=== PATIENT | female | born 2005 | race Hispanic/Latino ===

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

== ENCOUNTER → 2023-05-14 | Emergency (ER) | payer SELFPAY ==
[~2023-05-14] MED LIST: ACETAMINOPHEN 500 MG TAB ONE; DICYCLOMINE HCL 20 MG/2 ML AMP IM ONE; FENTANYL CITR 100 MCG/2 ML ONE; NA CHLORIDE 0.9% 1,000 ML ONE
--- OUTSIDE RECORDS SUMMARY | 2023-05-14 22:42 | XMS REPORT | Continuity of Care Document ---
Author Name Unknown Address [address] [place] [address] [facility] Address 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 Role Phone PCP, PATIENT DOES NOT HAVE A Primary Care Physic ce Unavailable MINOR VELASCO Attending Clinician Unavailable Minor Velasco MD Attending Clinician [phone] Rosalba Ochoa DO Attending Clinician [phone] ROSALBA OCHOA Attending Clinician Unavailable Racqule Bowman Attending Clinician [phone] KAILEE Attending Clinician Unavailable ROSALBA OCHOA Admitting Clinician Unavailable KAILEE Admitting Clinician Unavailable Payers Payer Name Policy Type Policy Number Effective Date Expirati on Date Source MEDICAID PENDING PENDING 2023 00:00:00 Problems Condition Name Condition Details Condition Category Status Onset Date Resolution Date Last Treatment Date Treating Clinician Comments Source Nabothian cyst Nabothian cyst Disease Active 2022-03 00:00: 00 [facility] Abdominal pain, unspecifie d abdominal location Abdominal pain, unspecifie d abdominal location Disease Active 2022-03 00:00: 00 [facility] Allergies, Adverse Reactions, Alerts Allergy Name Allergy Type Status Severity Reaction(s) Onset Date Inactive Date Treating Clinician Comments Source NO KNOWN ALLERGIE S Drug Class Active [facility] Social History Social Habit Start Date Stop Date Quantity Comments Source Sexual orientation U [facility] Sex Assigned At 2005 00:00:00 2005 00:00:00 [facility] Smoking Status Start Date Stop Date Source Tobacco smoking consumption unknown [facility] Medications Ordered Medication Name Filled Medication Name Start Date Stop Date Current Medication? Ordering Clinician Indication Dosage Frequency Signature (SIG) Comments Components Source Nitrofurant oin&Nit. Macrocryst (MACROBID) 100 mg capsule 04-26 00:00: 00 05-04 05:59 :00 Yes [id number] 100mg Take 1 capsule by mouth in the morning and 1 capsule in the evening. Do all this for 7 days. [facility] Vital Signs Vital Name Observation Time Observation Value Comments S ource Systolic blood pressure 2023-04-26 20:30:00 109 mm[Hg] [facility] Diastolic blood pressure 2023-04-26 20:30:00 75 mm[Hg] [facility] Heart rate 2023-04-26 20:30:00 70 /min [facility] Body temperature 2023-04-26 20:30:00 37 Miriam [facility] Respiratory rate 2023-04-26 20:30:00 15 /min [facility] Oxygen saturation in Arterial blood by Pulse oximetry 2023-04-26 20:30:00 99 /min [facility] Body height 2023-04-26 17:11:00 162.6 cm [facility] Body weight 2023-04-26 17:11:00 61.236 kg [facility] BMI 2023-04-26 17:11:00 23.17 kg/m2 [facility] Systolic blood pressure 2023-01-22 03:50:00 108 mm[Hg] [facility] Diastolic blood pressure 2023-01-22 03:50:00 78 mm[Hg] [facility] Heart rate 2023-01-22 03:50:00 59 /min [facility] Respiratory rate 2023-01-22 03:50:00 18 /min [facility] Oxygen saturation in Arterial blood by Pulse oximetry 2023-01-22 03:50:00 100 /min [facility] Body temperature 2023-01-22 01:36:00 36.78 Miriam [facility] Body weight 2023-01-22 01:36:00 56.7 kg [facility] Procedures Procedure Date / Time Performed Performing Clinicia n Source ASSIGNMENT OF BENEFITS 2023-04-26 18:34:15 Docto r Unassigned, [place] [facility] BASIC METABOLIC PANEL (NA, K, CL, CO2, GLUCOSE, BUN, CREATININE, CA) 2023-04-26 18:29:00 Minor Velasco [facility] TOTAL BETA HCG ASSAY 2023-04-26 18:29:00 Minor Velasco [facility] CBC WITH DIFF 2023-04-26 18:29:00 Minor Velasco [facility] URINALYSIS 2023-04-26 18:29:00 [facility] 2023-04-26 18:29:00 Minor Velasco [facility] NOTICE OF PRIVACY PRACTICES 2023-04-26 17:04:19 Doctor Unassigned, [place] [facility] CONSENT/REFUSAL FOR DIAGNOSIS AND TREATMENT 2023-04-26 17:03:50 Doctor Unassigned, [place] [facility] US OVARY TORSION 2023-01-22 04:45:00 Rosalba Ochoa [facility] POCT TEST 2023-01-22 03:44:00 Joan Ochoa [facility] URINALYSIS 2023-01-22 03:41:00 Rosalba Ochoa [facility] LIPASE 2023-01-22 03:22:00 Rosalba Ochoa [facility] COMP. METABOLIC PANEL (00409) 2023-01-22 03:22:00 Rosalba Ochoa [facility] CBC WITH DIFF 2023-01-22 03:22:00 Rosalba Ochoa [facility] CONSENT/REFUSAL FOR DIAGNOSIS AND TREATMENT 2023-01-22 01:09:11 Doctor Unassigned, [place] [facility] Encounters Start Date/Time End Date/Time Encounter Type Admission Type Attending Clinicians Care Facility Care Department Encounter ID Source 2023-04-26 11:15:00 2023-04-26 14:40:00 Emergency MINOR ARIAS [facility] ERT [id number] [facility] 2023-04-26 11:15:00 2023-04-26 14:40:00 Emergency Minor Velasco [facility] [id number] 4.2.7.2.686 [id number] [facility] 2023-01-21 19:37:00 2023-01-21 23:59:00 Emergency Rosalba Ochoa [facility] [id number] 4.2.7.2.686 [id number] [facility] 2023-01-21 19:37:00 2023-01-21 23:59:00 Emergency ROSALBA TANNER MATTHEW [facility] ERT [id number] [facility] 2022-12-09 00:00:00 2022-12-09 00:00:00 Telephone [facility] [id number] 4.2.7.2.686 [id number] [facility] 2021-09-19 03:33:00 2021-09-19 03:33:00 Outpatient KERMIT COATS KYBIANCA [facility] [id number] Oskar naidu [facility] Program Results Test Description Test Time Test Comments Results Result Co mments Source [facility] (NA, K, CL, CO2, GLUCOSE, BUN, CREATININE, CA)2023-04-26 19:09:51* Test Item Value Reference Range Interpretation Comme nts NA (test code = 0905643553) 135 mmol/L 135-145 K (test code = 7197630963) 3.9 mmol/L 3.5-5.0 CL (test code = 3814917622) 104 mmol/L 98-108 CO2 TOTAL (test code = 4280545930) 24 mmol/L 23-31 AGAP (test code = 3699711101) 7 2-16 BUN (test code = 8606846169) 6 mg/dL 7-23 L GLUCOSE (test code = 6671705516) 74 mg/dL 70-110 CREATININE (test code = 2160-0) 0.52 mg/dL 0.50-1.04 CALCIUM (test code = 5167220584) 9.3 mg/dL 8.6-10.6 eGFR (test code = 25190-8) 137.5 mL/min/1.73m2 CKD-EPI eGFR (2020). Assuming creatinine has been stable day-to-day for at least three months, the eGFR indicates Category G1 (>= 90 mL/min/1.73 m2) Lab Interpretation (test code = 00788-9) Abnormal [facility] WITH [id number] 18:59:50* Test Item Value Reference Range Interpretation Comme nts WBC (test code = 6690-2) 9.78 4.30-11.10 RBC (test code = 789-8) 4.62 3.93-5.25 HGB (test code = 718-7) 13.1 g/dL 11.6-15.0 HCT (test code = 4544-3) 39.4 % 35.7-45.2 MCV (test code = 787-2) 85.3 fL 80.6-95.5 MCH (test code = 785-6) 28.4 pg 25.9-32.8 MCHC (test code = 786-4) 33.2 g/dL 31.6-35.1 RDW-SD (test code = 15440-9) 43.5 fL 39.0-49.9 RDW-CV (test code = 788-0) 14.0 % 12.0-15.5 PLT (test code = 777-3) 322 166-358 MPV (test code = 03091-2) 9.3 fL 9.5-12.9 L NRBC/100 WBC (test code = 0664915653) 0.0 0.0-10.0 NRBC x10^3 (test code = 5885210955) See_Comment [Automated messa ge] The system which generated this result transmitted reference range: 10*3/?L. The reference range was not used to interpret this result as normal/abnormal. GRAN MAT (NEUT) % (test code = 770-8) 73.2 % IMM GRAN % (test code = 8222672271) 0.30 % LYMPH % (test code = 736-9) 21.2 % MONO % (test code = 5905-5) 4.4 % EOS % (test code = 713-8) 0.7 % BASO % (test code = 706-2) 0.2 % GRAN MAT x10^3(ANC) (test code = 0724540160) 7.16 10*3/uL 1.88-7.09 H IMM GRAN x10^3 (test code = 1574496216) 0.03 10*3/uL 0.00-0.06 LYMPH x10^3 (test code = 731-0) 2.07 10*3/uL 1.32-3.29 MONO x10^3 (test code = 742-7) 0.43 10*3/uL 0.33-0.92 EOS x10^3 (test code = 711-2) 0.07 10*3/uL 0.03-0.39 BASO x10^3 (test code = 704-7) 0.01-0.07 Lab Interpretation (test code = 42754-6) [facility]normal [facility] [id number] 18:29:00* Test Item Value Reference Range Interpretation Comme nts POCT PREG (test code = 1605) Positive On board controls acceptable with C Line (test code = 3574) Yes POCT PREG LOT # (test code = 3575) [id number] POCT PREG TEST DATE ( test code = 3576) 04-13-24 Lab Interpretation (test cod e = 83638-6) [facility] (39152)2023-01-22 03:49:36* Test Item Value Reference Range Interpretation Comme nts NA (test code = 4102973171) 136 mmol/L 135-145 K (test code = 7142715102) 3.9 mmol/L 3.5-5.0 CL (test code = 1893195575) 102 mmol/L 98-108 CO2 TOTAL (test code = 5706137816) 27 mmol/L 23-31 AGAP (test code = 8456964947) 7 2-16 BUN (test code = 5238202382) 13 mg/dL 7-23 GLUCOSE (test code = 3787179400) 79 mg/dL 70-110 CREATININE (test code = 6957848434) 0.64 mg/dL 0.50-1.04 TOTAL BILI (test code = 2006852902) 1.3 mg/dL 0.1-1.1 H CALCIUM (test code = 9379495279) 9.0 mg/dL 8.6-10.6 T PROTEIN (test code = 3188099541) 8.1 g/dL 6.3-8.2 ALBUMIN (test code = 1886705837) 4.4 g/dL 3.5-5.0 ALK PHOS (test code = 9532029683) 69 U/L 34-122 ALTv (test code = 1742-6) 18 U/L 5-35 AST(SGOT) (test code = 1562335310) 27 U/L 13-40 eGFR (test code = 18759-6) 130.7 mL/min/1.73m2 CKD-EPI eGFR (2020). Assuming creatinine has been stable day-to-day for at least three months, the eGFR indicates Category G1 (>= 90 mL/min/1.73 m2) Lab Interpretation (test code = 01419-0) [facility]normal [facility] 03:49:36* Test Item Value Reference Range Interpretation Comme nts LIPASE (test code = 0875364038) 72 U/L 0-220 Lab Interpretation (test cod e = 25854-1) Normal [facility] [id number] 03:44:00* Test Item Value Reference Range Interpretation Comme nts POCT PREG (test code = 1605) Negative On board controls acceptable with C Line (test code = 3574) Yes POCT PREG LOT # (test code = 3575) [id number] POCT PREG TEST DATE ( test code = 3576) 04 05 25 Lab Interpretation (test cod e = 19824-7) [facility] [id number] 03:40:14* Test Item Value Reference Range Interpretation Comme nts WBC (test code = 6690-2) 7.87 See_Comment [Automated messa ge] The system which generated this result transmitted reference range: 4.30 - 11.10 10*3/?L. The reference range was not used to interpret this result as normal/abnormal. RBC (test code = 789-8) 4.52 See_Comment [Automated messa ge] The system which generated this result transmitted reference range: 3.93 - 5.25 10*6/?L. The reference range was not used to interpret this result as normal/abnormal. HGB (test code = 718-7) 12.4 g/dL 11.6-15.0 HCT (test code = 4544-3) 38.2 % 35.7-45.2 MCV (test code = 787-2) 84.5 fL 80.6-95.5 MCH (test code = 785-6) 27.4 pg 25.9-32.8 MCHC (test code = 786-4) 32.5 g/dL 31.6-35.1 RDW-SD (test code = 14366-5) 40.6 fL 39.0-49.9 RDW-CV (test code = 788-0) 13.2 % 12.0-15.5 PLT (test code = 777-3) 368 See_Comment H [Automated messa ge] The system which generated this result transmitted reference range: 166 - 358 10*3/?L. The reference range was not used to interpret this result as normal/abnormal. MPV (test code = 33696-6) 8.8 fL 9.5-12.9 L NRBC/100 WBC (test code = 6795714238) 0.0 See_Comment [Automated [employer] ssage] The system which generated this result transmitted reference range: 0.0 - 10.0 /100 WBCs. The reference range was not used to interpret this result as normal/abnormal. NRBC x10^3 (test code = 6182393472) See_Comment [Automated messa ge] The system which generated this result transmitted reference range: 10*3/?L. The reference range was not used to interpret this result as normal/abnormal. GRAN MAT (NEUT) % (test code = 770-8) 51.4 % IMM GRAN % (test code = 6124883793) 0.30 % LYMPH % (test code = 736-9) 41.9 % MONO % (test code = 5905-5) 4.1 % EOS % (test code = 713-8) 1.8 % BASO % (test code = 706-2) 0.5 % GRAN MAT x10^3(ANC) (test code = 1642187466) 4.05 10*3/uL 1.88-7.09 IMM GRAN x10^3 (test code = 8959721867) 0.00-0.06 LYMPH x10^3 (test code = 731-0) 3.30 10*3/uL 1.32-3.29 H MONO x10^3 (test code = 742-7) 0.32 10*3/uL 0.33-0.92 L EOS x10^3 (test code = 711-2) 0.14 10*3/uL 0.03-0.39 BASO x10^3 (test code = 704-7) 0.04 10*3/uL 0.01-0.07 Lab Interpretation (test code = 72313-1) Abnormal [facility] Notes Date/Time Note Provider Source 2023-04-26 14:39:55 0ze8boo5yjjYuB5gtFaZ R0IMtixgOb0+Yl D/XBsAanVr+ra9bcR4dUguz/IH6lGK2072 -02-18T14:39:55 Written/verbal d/c instructions, out of er no distress 34167-5Swhuhuwab department PjqrGB1157-73-43U33:40:09Emergen department NoteTXT1.2.840.947605.1.13.104.2.7 .2.302186|[id number] for patient sfmr35973-8DzhyTDMIYOMHRWWPdlvvvoh d C-CDA narrative tumz950420884Weiyid M. Barton RNUT[id number] 18RWAWQGLGAEOHDGCGGBHMON0477-89-07 T14:40:091.2.840.049497.1.72.3.15| 1.2.840.635982.1.13.104.2.7.2.7278 [id number] Corinna Carroll RN [facility] 2023-04-26 11:10:10 An+Xdj8h88b9rDpU0ahW A0C5OvCw+rwZWy FeC5IUUZmwneZ59xAhN/FPDwE9up5j0822 -02-18T11:10:10 Patient states: "It was the stomach acid I usually throw up in the morning. There was some spirals of blood a bunch of them."Reports being 15 weeks . 86687-6Odsqetqwc department Triage ezysCH8992-53-93R31:10:53[facility] Triage noteTXT1.2.840.013271.1.13.104.2.7 .2.453026|[id number] for patient alhp94857-1Qethmnmhv department NoteLNNARRATIVEFormatted C-CDA narrative [id number] M Cruz RNUT[id number] 18CIIGQUHQOUNUPYXXJTCHUH7831-80-49 T11:10:531.2.840.345480.1.72.3.15| 1.2.840.943376.1.13.104.2.7.2.7278 [id number] Silvana Mcdonnell RN [facility]
[2023-05-14 23:23] LABS: Absolute Basophils 0.1 K/uL (0-0.5); Basophils % 0.5 % (0-1.3); Hematocrit 34.5 % (36.0-45.0); Lymphocytes % 21.1 % (15.3-44.8); MCV 83.2 fL (80-100); MPV 7.1 fL (7.6-11.3); Platelets 321 thou/uL (152-406); RBC Red Blood Cell Count 4.14 M/uL (3.86-4.86)
[2023-05-14 23:32] LABS: Specific Gravity 1.008 (1.005-1.030); Urine Bacteria <20 /HPF (<20); Urine Bilirubin NEGATIVE (Negative); Urine Blood 3+ (OVER) (Negative); Urine Clarity Extremely Turbid (Clear); Urine Color Light-Brown (Yellow); Urine Crystals Unidentified Few /HPF (None Seen); Urine Glucose NEGATIVE (Negative); Urine Protein TRACE (Negative); Urine RBC >50 /HPF (None Seen); Urine Urobilinogen Normal (Normal); Urine WBC Clump Rare /HPF (None Seen); Urine Yeast (Budding) Trace /HPF (None Seen)
[2023-05-15 00:06] LABS: Anion Gap 10.5 mEq/L (5.0-15.0); Potassium 3.5 mEq/L (3.5-5.1)
--- NOTE | 2023-05-15 00:11 | ER ---
Nurse's Notes [facility] Name: Paz Castrejon Age: 17 yrs Sex: Female : 2005 Arrival Date: 05/14/2023 Time: 22:38 Bed 3 Private MD: Diagnosis: Threatened Presentation: 05/13 22:47 Chief complaint: Patient states: 5 MONTHS VAGINAL BLEEDING STARTED 30 MINUTES jj7 AGO. NO CARE. Coronavirus screen: At this time, the client does not indicate any symptoms associated with coronavirus-19. Ebola Screen: No symptoms or risks identified at this time. Initial Sepsis Screen: Does the patient meet any 2 criteria? No. Patient's initial sepsis screen is negative. Does the patient have a suspected source of infection? No. Patient's initial sepsis screen is negative. Risk Assessment: Do you want to hurt yourself or someone else? Patient reports no desire to harm self or others. Onset of symptoms. Onset of symptoms. 22:47 Method Of Arrival: Ambulatory [facility] 22:47 Acuity: JOSR 3 jj7 Triage Assessment: 22:47 General: Appears in no apparent distress. uncomfortable, Behavior is cooperative, jj7 appropriate for age, anxious, crying. Pain: Complains of pain in pelvis Pain currently is 6 out of 10 on a pain scale. : Reports vaginal bleeding that is bright red, with clots, moderate flow, since 2229. 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 Flu vaccine is not up to date. - Social history:: Smoking status: Patient denies any tobacco usage or history of. Patient/guardian denies using alcohol, street drugs, IV drugs. Screenin:47 [facility] ED Fall Risk Assessment (Adult) History of falling in the last 3 months, jj7 including since admission No falls in past 3 months (0 pts) Confusion or Disorientation No (0 pts) Intoxicated or Sedated No (0 pts) Impaired Gait No (0 pts) Mobility Assist Device Used No (0 pt) Altered Elimination No (0 pt) Score/Fall Risk Level 0 - 2 = Low Risk Oriented to surroundings, Maintained a safe environment, Educated pt \T\ family on fall prevention, incl call for assistance when getting out of bed. Abuse screen: Denies threats or abuse. Nutritional screening: No deficits noted. Tuberculosis screening: No symptoms or risk factors identified. Assessment: 22:47 Reassessment: SEE TRIAGE ASSESSMENT. jj7 23:47 Reassessment: Patient and/or family updated on plan of care and expected duration. Pain tm6 level reassessed. Patient is alert, oriented x 3, equal unlabored respirations, skin warm/dry/pink. 05/14 00:39 Reassessment: PT REPORT GIVEN TO KEELEY ALCOCER. 7 00:44 Reassessment: [facility] AT BEDSIDE TO TRANSFER PT. [facility] Vital Signs: 05/13 22:47 BP 123 / 83; Pulse 74; Resp 16; Temp 97.9; Pulse Ox 100% ; Weight 61.23 kg; Height 5 j7 ft. 4 in. ; Pain 6/10; 23:46 BP 101 / 46; Pulse 66; Pulse Ox 99% on R/A; Pain 5/10; tm6 08 00:41 BP 106 / 91; Pulse 80; Resp 16; Pulse Ox 98% ; Pain 2/10; j7 05/13 22:47 Body Mass Index 23.17 (61.23 kg, 162.56 cm) - Percentile 66.2 % j7 05/13 22:47 Pain Scale: Adult jj7 23:46 Pain Scale: Adult tm6 05/14 00:41 Pain Scale: Adult jj7 ED Course: 05/13 22:47 Patient arrived in ED. j7 22:47 Arm band placed on Patient placed in an exam room, on a stretcher. jj7 22:47 Patient has correct armband on for positive identification. Placed in gown. Bed in low jj7 position. Call light in reach. Side rails up X 1. Adult w/ patient. Client placed on continuous cardiac and pulse oximetry monitoring. NIBP monitoring applied. Warm blanket given. 22:48 Damian Hager PA is PHCP. cp 22:48 Willy Escobedo MD is Attending Physician. cp 22:57 Triage completed. jj7 23:17 Abo/rh Typing Sent. tm6 23:17 Basic Metabolic Panel Sent. tm6 23:17 CBC with Diff Sent. tm6 23:17 Test, Urine Sent. tm6 23:17 Quantitative Hcg Sent. tm6 23:17 Urinalysis w/ reflexes Sent. tm6 23:17 Inserted saline lock: 22 gauge in left antecubital area, using aseptic technique. tm6 23:34 Shellie Charles, LEODAN is Primary Nurse. tm6 23:36 US OB Limited In Process Unspecified. EDMS 05/14 00:01 Initiated transfer to [facility] with Chandni Dunaway. wm 00:08 Type And Screen Sent. tm6 00:14 Inserted saline lock: 22 gauge in right antecubital area, using aseptic technique. oe Blood collected. 00:15 Inserted saline lock: 22 gauge in left hand, using aseptic technique. oe 00:22 Pt accepted for transfer to [facility] to the L \T\ D Floor triage by Katerin Baer wm \T\ 0021 per Chandni Dunaway. 00:25 [facility] accepted for transport with an ETA \T\ 0045. wm 00:42 Patient transferred, IV remains in place. jj7 00:50 No provider procedures requiring assistance completed. jj7 Administered Medications: 05/13 23:34 Drug: Dicyclomine IM 20 mg IM once Route: IM; Site: right ventrogluteal; tm6 05/14 00:56 Follow up: Response: Pain is decreased jj7 05/13 23:34 Drug: NS 0.9% IV 1000 ml IV at 1 bolus Per protocol; 1000 mL bolus Route: IV; Rate: 1 tm6 bolus; Site: left antecubital; 05/14 00:37 Follow up: IV Status: Completed infusion jj7 05/13 23:34 Drug: Acetaminophen PO 1000 mg PO once Route: PO; tm6 03 00:34 Follow up: Response: Pain is decreased jj7 00:08 Drug: fentaNYL (PF) IVP 25 mcg IVP once Route: IVP; Site: right antecubital; tm6 00:56 Follow up: Response: Pain is decreased jj7 00:12 Drug: NS 0.9% IV 1000 ml IV at 1 bolus Per protocol; 1000 mL bolus Route: IV; Rate: 1 tm6 bolus; Site: right antecubital; 00:57 Follow up: IV Status: Infusion continued upon transfer j 00:55 Not Given (MED ICATION NOT READY BY TIME EMS ARRIVED FOR TRANSFER. MIGUEL HEARD STATES DON'T jj7 WAIT FOR MED PT NEEDS TO BE TRANSFERREDd): rho d immune [id number] mcg IM once Medication: 05/13 22:47 VIS not applicable for this client. 7 Outcome: 05/14 00:10 ER care complete, transfer ordered by . faisal 00:39 Transferred jj7 00:50 Transferred by ground EMS [facility] [place]. to [facility], jj 00:50 Condition: good 00:58 Patient left the ED. Signatures: Dispatcher [employer] EDMS Damian Hager PA PA cp Espinosa, Orlando oe Marsh, Wendy wm Johnson, Juwairiyah, RN RN jj7 Shellie Charles RN RN tm6 Corrections: (The following items were deleted from the chart) 00:58 00:41 BP 106 / 91; Pulse 80bpm; Resp 16bpm; Pulse Ox 98%; jj7 jj7
--- NOTE | 2023-05-15 00:11 | EDPHYS ---
Physician Documentation [facility] Name: Paz Castrejon Age: 17 yrs Sex: Female : 2005 Arrival Date: 05/14/2023 Time: 22:38 Bed 3 Private MD: ED Physician Willy Escobedo HPI: 05/13 22:57 This 17 yrs old Female presents to ER via Unassigned with complaints of cp Abdominal Pain. 22:57 The patient presents to the emergency department with abdominal pain, of the mid and cp lower abdomen, that started just prior to arrival, described as constant, crampy, vaginal bleeding, that is heavy. 05/14 22:54 course: care: none, Ultrasound: the patient has not had an cp ultrasound. Associated signs and symptoms: Pertinent negatives: chest pain, fever, vomiting. 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 Flu vaccine is not up to date. - Social history:: Smoking status: Patient denies any tobacco usage or history of. Patient/guardian denies using alcohol, street drugs, IV drugs. ROS: 23:00 Abdomen/GI: Positive for abdominal pain, cp 23:00 Constitutional: Negative for body aches, chills, fever, poor PO intake, cp 23:00 Cardiovascular: Negative for chest pain, edema, palpitations, 23:00 Respiratory: Negative for cough, shortness of breath, wheezing, 23:00 : Positive for vaginal bleeding, Negative for urinary symptoms, 23:00 Neuro: Negative for altered mental status, dizziness, syncope, weakness, cp 23:00 All other systems are negative, Exam: 23:05 Constitutional: The patient appears in no acute distress, alert, awake, well developed, cp well nourished, in obvious pain, uncomfortable, 23:05 Head/Face: Normocephalic, atraumatic. cp 23:05 Eyes: Periorbital structures: appear normal, Conjunctiva: normal, no exudate, no injection, Sclera: no appreciated abnormality, Lids and lashes: appear normal, bilaterally, 23:05 ENT: External ear(s): are unremarkable, Nose: is normal, Mouth: Lips: moist, Oral mucosa: moist, Posterior pharynx: is normal, airway is patent, no erythema, no exudate, 23:05 Chest/axilla: Inspection: normal, 23:05 Cardiovascular: Rate: normal, Rhythm: regular, 23:05 Respiratory: the patient does not display signs of respiratory distress, Respirations: normal, no use of accessory muscles, no retractions, labored breathing, is not present, Breath sounds: are clear throughout, no decreased breath sounds, no stridor, no wheezing, 23:05 Abdomen/GI: Inspection: gravid appearance, is noted, Bowel sounds: active, all quadrants, Palpation: soft, in all quadrants, severe abdominal tenderness, in the right lower quadrant and left lower quadrant, rebound tenderness, is not appreciated, voluntary guarding, is elicited in the right lower quadrant and left lower quadrant, 23:05 Back: CVA tenderness, is absent, 23:05 Neuro: Orientation: to person, place \T\ time. Mentation: is normal, Motor: moves all fours, strength is normal, Sensation: is normal, Vital Signs: 22:47 BP 123 / 83; Pulse 74; Resp 16; Temp 97.9; Pulse Ox 100% ; Weight 61.23 kg; Height 5 jj7 ft. 4 in. ; Pain 6/10; 23:46 BP 101 / 46; Pulse 66; Pulse Ox 99% on R/A; Pain 5/10; tm6 05/14 00:41 BP 106 / 91; Pulse 80; Resp 16; Pulse Ox 98% ; Pain 2/10; jj7 05/13 22:47 Body Mass Index 23.17 (61.23 kg, 162.56 cm) - Percentile 66.2 % j7 05/13 22:47 Pain Scale: Adult jj7 23:46 Pain Scale: Adult tm6 05/14 00:41 Pain Scale: Adult jj7 MDM: 05/13 22:49 Patient medically screened. cp 05/14 00:20 Data reviewed: vital signs, nurses notes, lab test result(s), radiologic studies, cp ultrasound, I have discussed the patient's presentation/case with the attending Emergency Department Physician;. 00:20 Management of patient was discussed with the following: Caddy Packer: DR Conklin, OB \T\[facility] [place], will accept patient as transfer. I considered the following discharge prescriptions or medication management in the emergency department Medications were administered in the Emergency Department. See MAY. 05/13 22:59 Order name: Abo/rh Typing; Complete Time: 00:18 cp 05/14 00:18 Interpretation: Reviewed. 05/13 22:59 Order name: Basic Metabolic Panel; Complete Time: 00:18 cp 05/14 00:56 Interpretation: Normal except: CL 109. 05/13 22:59 Order name: CBC with Diff; Complete Time: 23:56 05/13 23:57 Interpretation: Normal except: WBC 14.30; HGB 11.8; HCT 34.5; MPV 7.1; NEUT A 10.4. 05/13 22:59 Order name: Test, Urine; Complete Time: 23:56 05/13 22:59 Order name: Quantitative Hcg; Complete Time: 00:18 cp 05/14 00:56 Interpretation: Reviewed. 05/13 22:59 Order name: Urinalysis w/ reflexes; Complete Time: 23:56 05/14 00:56 Interpretation: Reviewed. 05/13 23:35 Order name: Urine Culture EDAR 05/13 23:56 Order name: Type And Screen 05/13 22:59 Order name: US OB Limited 05/13 22:59 Order name: IV Saline Lock; Complete Time: 23:17 cp 05/13 22:59 Order name: Labs collected and sent; Complete Time: 23:17 cp 05/13 22:59 Order name: NPO; Complete Time: 23:17 cp 05/13 22:59 Order name: Pelvic Exam Setup; Complete Time: 23:46 cp 05/13 23:56 Order name: IV; Complete Time: 00:13 cp Administered Medications: 05/13 23:34 Drug: Dicyclomine IM 20 mg IM once Route: IM; Site: right ventrogluteal; tm6 05/14 00:56 Follow up: Response: Pain is decreased jj7 05/13 23:34 Drug: NS 0.9% IV 1000 ml IV at 1 bolus Per protocol; 1000 mL bolus Route: IV; Rate: 1 tm6 bolus; Site: left antecubital; 05/14 00:37 Follow up: IV Status: Completed infusion jj7 05/13 23:34 Drug: Acetaminophen PO 1000 mg PO once Route: PO; tm6 05/14 00:34 Follow up: Response: Pain is decreased jj7 00:08 Drug: fentaNYL (PF) IVP 25 mcg IVP once Route: IVP; Site: right antecubital; tm6 00:56 Follow up: Response: Pain is decreased jj7 00:12 Drug: NS 0.9% IV 1000 ml IV at 1 bolus Per protocol; 1000 mL bolus Route: IV; Rate: 1 tm6 bolus; Site: right antecubital; 00:57 Follow up: IV Status: Infusion continued upon transfer jj 00:55 Not Given (MED ICATION NOT READY BY TIME EMS ARRIVED FOR TRANSFER. MIGUEL HEARD STATES DON'T j WAIT FOR MED PT NEEDS TO BE TRANSFERREDd): rho d immune [id number] mcg IM once Disposition: 02:39 Co-signature as Attending Physician, Willy Escobedo MD I agree with the assessment sp4 and plan of care. I reviewed the patient's care provided by the Advanced Practice Provider and agree with the diagnosis and treatment plan. Disposition Summary: 05/15/23 00:10 Transfer Ordered Notes: Transfer Location: [facility] cp Reason: Higher level of care cp Condition: Stable cp Problem: new cp Symptoms: are unchanged cp Accepting Physician: DR Conklin(05/15/23 00:58) jj7 Diagnosis - Threatened cp Forms: - Medication Reconciliation Form cp - SBAR form cp Signatures: Dispatcher [employer] EDMS Damian Hager PA PA cp Choco Edmonds RN RN Willy Deras MD MD sp4 Shellie Charles RN RN tm6 Corrections: (The following items were deleted from the chart) 00:55 00:10 Doctor cp cp 00:58 00:55 DR Conklin cp jj7 22:56 05/13 22:57 The patient presents to the emergency department with abdominal pain, of cp the mid and lower abdomen, cp 05/15 00:33 05/14 00:20 Management of patient was discussed with the following: Caddy Packer: DR faisal Keller, OB \T\[facility], will accept patient as transfer. faisal
[2023-05-15 01:20] VITALS: TEMP 97.9
[2023-05-15 01:21] VITALS: BP 106/91; O2SAT 98
--- NOTE | 2023-05-15 19:02 | RAD REPORT ---
EXAM DESCRIPTION: US , Limited CLINICAL HISTORY: ABD PAIN TECHNIQUE: Real-time limited ultrasound of the maternal uterus with image documentation. COMPARISON: No relevant prior studies available. FINDINGS: Fetus: Single intrauterine gestation. No demonstrable cardiac activity. FL: 2.37 cm, 17 weeks 1 day. Position: Transverse presentation, head maternal right. Placenta: The placenta is anterior in location. Amniotic fluid: Subjective oligohydramnios. Cervix: The cervix is significantly dilated. IMPRESSION: 1. Single intrauterine gestation. No demonstrable cardiac activity compatible wi th demise. Subjective oligohydramnios. 2. Estimated gestational age by ultrasound is 17 weeks 1 day. THIS REPORT CONTAINS FINDINGS THAT MAY BE CRITICAL TO PATIENT CARE: The findings were verbally discus sed via telephone conference with Damian Hager PAC on 05/14/2023 11:51 PM AIR PUMPER. The results were acknowle dged and understood. Electronically signed by: Sheryl [place] MD 05/14/2023 11:51 PM [employer] PUMPER Due to temporary technical issues with the PACS/Fluency reporting system, reports are being signed by the in house radiologists without review as a courtesy to insure prompt reporting. The interpreting radiologist is fully responsible for the content of the report.
== END ==
LOC: ER 22:38
DX: O20.0 Threatened abortion (principal)
CPT/HCPCS: 36415; 76815; 80048; 81001; 81025; 84702; 85025; 86900; 86901; 87086; 87088; 96361; 96372; 96374; 99285; J0500; J3010; J7030

== ENCOUNTER 2023-11-04 09:19 | Emergency (ER) | payer OTHER ==
[2023-11-04 09:51] LABS: Specific Gravity > 1.030 (1.005-1.030)
[2023-11-04 09:51] LABS: Absolute Basophils 0.1 K/uL (0-0.5); Absolute Eosinophils 0.2 K/uL (0-0.5); Absolute Lymphocytes (CBC) 2.6 K/uL (0.7-4.9); Absolute Monocytes 0.6 K/uL (0.1-1.3); Basophils % 0.6 % (0-1.3); Eosinophils % 1.4 % (0-4.4); Hematocrit 36.3 % (36.0-45.0); Hemoglobin 11.9 g/dL (12.0-15.0); Lymphocytes % 20.7 % (15.3-44.8); MCHC 32.7 g/dL (32.0-36.0); MCV 82.6 fL (80-100); MPV 7.8 fL (7.6-11.3); Neutrophils % 72.3 % (41.7-73.7); Platelets 348 thou/uL (152-406); RBC Red Blood Cell Count 4.39 M/uL (3.86-4.86)
[2023-11-04 09:56] LABS: Urine Bacteria >50 /HPF (<20); Urine Culture Reflex Order REFLEXED; Urine Mucus 3+ /HPF (None Seen); Urine RBC >50 /HPF (None Seen); Urine WBC >50 /HPF (<5)
[2023-11-04 09:59] LABS: Specific Gravity > 1.030 (1.005-1.030); Urine Bilirubin NEGATIVE (Negative); Urine Blood 3+ (OVER) (Negative); Urine Clarity Extremely Turbid (Clear); Urine Color Yellow (Yellow); Urine Glucose NEGATIVE (Negative); Urine Ketones NEGATIVE (Negative); Urine Microscopic Reflex YN NO UMIC; Urine Nitrite NEGATIVE (Negative); Urine Protein 2+ (Negative); Urine Urobilinogen 1+ (Normal)
--- OUTSIDE RECORDS SUMMARY | 2023-11-04 10:10 | XMS REPORT | Continuity of Care Document ---
Author Name Unknown Address [address] [facility] [place] [address] [facility] Address [address] [facility] [place] [address] Care Team Providers Care Environmental Health Inspector Name Role Phone Pcp, Patient Does Not Have A Primary Care Physic ce Madyson Pedraza Attending Clinician + Madyson Pedraza Attending Clinician + Paresh Kern MD Attending Clinician [phone] MINOR VELASCO Attending Clinician Unavailable Minor Velasco MD Attending Clinician [phone] Rosalba Batista DO Attending Clinician [phone] ROSALBA BATISTA Attending Clinician Unavailable Racquel Bowman Attending Clinician [phone] KAILEE Attending Clinician Unavailable Paresh Kern MD Admitting Clinician [phone] ROSALBA BATISTA Admitting Clinician Unavailable KAILEE Admitting Clinician Unavailable Payers Payer Name Policy Type Policy Number Effective Date Expirati on Date Source Problems Condition Name Condition Details Condition Category Status Onset Date Resolution Date Last Treatment Date Treating Clinician Comments Source History of IUFD History of IUFD Disease Active 10-28 00:00: 00 Overview: Formattin g of this note might be different from the original. At 19 weeks [facility] Supervisio n of high-risk Supervisio n of high-risk Disease Active 10-28 00:00: 00 [facility] Over weight Over weight Disease Active 10-28 00:00: 00 [facility] Nausea and vomiting in Nausea and vomiting in Disease Active 10-28 00:00: 00 [facility] Rh negative state in antepartum period Rh negative state in antepartum period Disease Active 10-28 00:00: 00 [facility] Nabothian cyst Nabothian cyst Disease Active 2022-03 00:00: 00 [facility] Missed Missed Disease Resolve d 08 00:00: 00 2023-10-29 00:00:00 2023-10-29 09:22:27 [facility] Abdominal pain, unspecifie d abdominal location Abdominal pain, unspecifie d abdominal location Disease Resolve d 2022-03 00:00: 00 2023-10-29 00:00:00 2023-10-29 09:22:18 [facility] Allergies, Adverse Reactions, Alerts Allergy Name Allergy Type Status Severity Reaction(s) Onset Date Inactive Date Treating Clinician Comments Source NO KNOWN ALLERGIE S Drug Class Active [facility] Social History Social Habit Start Date Stop Date Quantity Comments Source ASSERTION 2023-09-11 00:00:00 [facility] intake 2023-10-29 00:00:00 2023-10-29 00:00:00 Ex-drinker (finding) [facility] History of Social function 2023-06-05 00:00:00 2023-06-05 00:00:00 [facility] Tobacco use and exposure 2023-05-15 00:00:00 2023-05-15 00:00:00 Smokeless tobacco non-user [facility] Sex assigned at 2003 00:00:00 2005 00:00:00 [facility] Smoking Status Start Date Stop Date Source Tobacco smoking consumption unknown [facility] Never smoked tobacco [facility] Medications Ordered Medication Name Filled Medication Name Start Date Stop Date Current Medication? Ordering Clinician Indication Dosage Frequency Signature (SIG) Comments Components Source proMETHazin e 25 mg tablet 10-28 00:00: 00 Yes [id number] 25mg Take 1 tablet by mouth every 6 (six) hours as needed for Nausea and Vomiting (N/V). [facility] PNV 67-iron ps-folate no.1-dha (VITAFOL ULTRA) 29 mg iron- 1 mg-200 mg Cap 10-28 00:00: 00 Yes [id number] 1{each} Take 1 Each by mouth in the morning. [facility] HYDROcodone -acetaminop hen (NORCO 5) 5-325 mg tablet 1 tablet 05-14 12:46: 22 Yes 1{tbl} 1 tablet, Oral, Q6HPRN, Starting on Thu05/15/23 at 0646, Until Discontinu ed, Routine, Pain (scale 7-10) [facility] ibuprofen (IBU) tablet 600 mg 05-14 12:46: 22 Yes 600mg 600 mg, Oral, Q6HPRN, Starting on Thu05/15/23 at 0646, Until Discontinu ed, Routine, Pain (scale 4-6) [facility] acetaminoph en (TYLENOL) tablet 650 mg 05-14 12:46: 22 Yes 650mg 650 mg, Oral, Q6HPRN, Starting on Thu05/15/23 at 0646, Until Discontinu ed, Routine, Pain (scale 1-3) [facility] diphenhydrA MINE (BENADRYL) tablet 25 mg 05-14 12:46: 22 Yes 25mg 25 mg, Oral, Q6HPRN, Starting on Thu05/15/23 at 0646, Until Discontinu ed, Routine, Sleep, Itching [facility] ondansetron (ZOFRAN (PF)) injection 4 mg 05-14 12:46: 22 Yes 4mg 4 mg, Slow IV Push, Q8HPRN, Starting on Thu05/15/23 at 0646, Until Discontinu ed, Routine, Nausea and Vomiting (N/V) [facility] simethicone (GAS RELIEF (SIMETHICON E)) chewable tablet 160 mg 05-14 12:46: 22 Yes 160mg 160 mg, Oral, PC+HSPRN, Starting on Thu05/15/23 at 0646, Until Discontinu ed, Routine, Gas [facility] docusate (COLACE) capsule 200 mg 05-14 12:46: 22 Yes 200mg 200 mg, Oral, QDAILYPRN, Starting on Thu05/15/23 at 0646, Until Discontinu ed, Routine, Constipati on [facility] magnesium hydroxide (MILK OF MAGNESIA) 400 mg/5 mL suspension 30 mL 05-14 12:46: 22 Yes 30mL 30 mL, Oral, QDAILYPRN, Starting on Thu05/15/23 at 0646, Until Discontinu ed, Routine, Constipati on [facility] benzocaine- menthol (DERMOPLAST ) 20-0.5 % topical spray 05-14 12:46: 22 Yes Topical, PRN, Starting on Thu05/15/23 at 0646, Until Discontinu ed, Routine, Perineum discomfort [facility] ibuprofen (IBU) tablet 600 mg 05-14 12:18: 54 Yes 600mg 600 mg, Oral, Q6HPRN, Starting on Thu05/15/23 at 0618, Until Discontinu ed, Routine, Pain (scale 1-3) [facility] proMETHazin e (PHENERGAN) 25 mg in NS 50 mL IV piggyback (CNR) 05-14 10:01: 48 05-14 10:01 :00 No 25mg 25 mg, IV Piggyback, at 200 mL/hr Administer over 15 Minutes, ONCE PRN, 1 dose, Starting on Thu05/15/23 at 0401, Until Thu05/15/23 at 0401, Routine, with morphine [facility] morpHINE (2 mg/mL) injection 6 mg 05-14 10:01: 41 05-14 09:37 :00 No 6mg 6 mg, Slow IV Push, ONCE PRN, 1 dose, Starting on Thu05/15/23 at 0401, Until Thu05/15/23 at 2359, Routine, Pain (scale 4-6) [facility] miSOPROStoL (CYTOTEC) tablet 200 mcg 05-14 10:00: 00 05-14 09:49 :00 No 200ug 200 mcg, Oral, Q4H, 1 dose, First dose (after last modificati on) on Thu05/15/23 at 0400, Routine [facility] oxytocin (PITOCIN) 30 units in NS 500 mL IV infusion 05-14 08:48: 52 05-14 11:51 :00 No 600mL/h 600 mL/hr, IV Infusion, PRN, PPH, Starting on Thu05/15/23 at 0248, For 1 dose
As instructed by physician at bedside.<b r> [facility] sodium citrate-cit denis acid (BICITRA) 500-334 mg/5 mL solution 30 mL 05-14 08:48: 52 05-14 11:42 :00 No 30mL 30 mL, Oral, PRE-PROCED URE ONCE, 1 dose, Starting on Thu05/15/23 at 0248, Until Discontinu ed, Routine, Surgery/Pr ocedure [facility] lactated ringers IV infusion 1,000 mL 05-14 08:48: 52 05-14 12:46 :44 No 1000mL at 1-125 mL/hr, 1,000 mL, IV Infusion, TITRATE, Starting on Thu05/15/23 at 0248, Until Thu05/15/23 at 0646, Routine [facility] ibuprofen 600 mg tablet 05-14 00:00: 00 10-28 00:00 :00 No [id number] 600mg Take 1 tablet by mouth every 6 (six) hours as needed (Pain). Take with food or milk. [facility] diphenhydrA MINE 25 mg tablet 05-14 00:00: 00 10-28 00:00 :00 No [id number] 25mg Take 1 tablet by mouth at bedtime as needed for Sleep. [facility] melatonin 3 mg Cap 05-14 00:00: 00 10-28 00:00 :00 No [id number] 3mg Take 3 mg by mouth at bedtime. [facility] vitamin w/FA tablet 05-14 00:00: 00 10-28 00:00 :00 No [id number] 1{tbl} Take 1 tablet by mouth in the morning. [facility] docusate 100 mg capsule 05-14 00:00: 00 10-28 00:00 :00 No [id number] 200mg Take 2 capsules by mouth once daily as needed for Constipati on. [facility] ferrous sulfate 325 mg (65 mg iron) tablet 05-14 00:00: 00 10-28 00:00 :00 No [id number] 325mg Take 1 tablet by mouth in the morning. [facility] Nitrofurant oin&Nit. Macrocryst (MACROBID) 100 mg capsule 04-26 00:00: 00 05-04 05:59 :00 No [id number] 100mg Take 1 capsule by mouth in the morning and 1 capsule in the evening. Do all this for 7 days. [facility] Immunizations Ordered Immunization Name Filled Immunization Name Date Status Comments Source Rho (d) Immune Globulin Unknown Completed [facility] Rho (d) Immune Globulin Unknown Completed [facility] Rho (d) Immune Globulin Unknown Completed [facility] Vital Signs Vital Name Observation Time Observation Value Comments S susana Systolic blood pressure 2023-10-29 13:57:00 115 mm[Hg] [facility] Diastolic blood pressure 2023-10-29 13:57:00 68 mm[Hg] [facility] Heart rate 2023-10-29 13:57:00 64 /min General acute hospital Body temperature 2023-10-29 13:57:00 36.83 Miriam [facility] Respiratory rate 2023-10-29 13:57:00 19 /min [facility] Body height 2023-10-29 13:57:00 162.6 cm [facility] Body weight 2023-10-29 13:57:00 73.846 kg [facility] BMI 2023-10-29 13:57:00 27.94 kg/m2 [facility] Systolic blood pressure 2023-06-05 18:23:00 129 mm[Hg] [facility] Diastolic blood pressure 2023-06-05 18:23:00 73 mm[Hg] [facility] Heart rate 2023-06-05 18:23:00 79 /min [facility] Body temperature 2023-06-05 18:23:00 36.17 Miriam [facility] Respiratory rate 2023-06-05 18:23:00 18 /min [facility] Body height 2023-06-05 18:23:00 162.6 cm [facility] Body weight 2023-06-05 18:23:00 73.573 kg [facility] BMI 2023-06-05 18:23:00 27.84 kg/m2 [facility] Systolic blood pressure 2023-05-15 23:30:00 122 mm[Hg] [facility] Diastolic blood pressure 2023-05-15 23:30:00 58 mm[Hg] [facility] Heart rate 2023-05-15 23:30:00 70 /min General acute hospital Body temperature 2023-05-15 23:30:00 37 Miriam [facility] Respiratory rate 2023-05-15 23:30:00 18 /min [facility] Oxygen saturation in Arterial blood by Pulse oximetry 2023-05-15 23:30:00 100 /min [facility] Body height 2023-05-15 08:14:00 162.6 cm [facility] Body weight 2023-05-15 08:14:00 61.236 kg [facility] BMI 2023-05-15 08:14:00 23.16 kg/m2 [facility] Systolic blood pressure 2023-04-26 20:30:00 109 mm[Hg] [facility] Diastolic blood pressure 2023-04-26 20:30:00 75 mm[Hg] [facility] Heart rate 2023-04-26 20:30:00 70 /min [facility] Body temperature 2023-04-26 20:30:00 37 Miriam [facility] Respiratory rate 2023-04-26 20:30:00 15 /min [facility] Oxygen saturation in Arterial blood by Pulse oximetry 2023-04-26 20:30:00 99 /min [facility] Body height 2023-04-26 17:11:00 162.6 cm [facility] Body weight 2023-04-26 17:11:00 61.236 kg [facility] BMI 2023-04-26 17:11:00 23.17 kg/m2 [facility] Systolic blood pressure 2023-01-22 03:50:00 108 mm[Hg] [facility] Diastolic blood pressure 2023-01-22 03:50:00 78 mm[Hg] [facility] Heart rate 2023-01-22 03:50:00 59 /min General acute hospital Respiratory rate 2023-01-22 03:50:00 18 /min [facility] Oxygen saturation in Arterial blood by Pulse oximetry 2023-01-22 03:50:00 100 /min [facility] Body temperature 2023-01-22 01:36:00 36.78 Miriam [facility] Body weight 2023-01-22 01:36:00 56.7 kg [facility] Procedures Procedure Date / Time Performed Performing Clinician Source POCT URINALYSIS W/O SPECIFIC GRAVITY 2023-10-29 13:56:00 [place] [facility] POCT TEST 2023-10-29 13:55:00 Dinesh Park [facility] HB HEMOGLOBIN STAINS 2023-05-15 14:43:00 Yari Serna [facility] ABORH CONFIRMATION (LAB ONLY) 2023-05-15 09:55:00 Paresh Kern [facility] RHO (D) IMMUNE GLOBULIN 2023-05-15 09:32:00 Nargis Kern eorjairo [facility] HIV 1/2 AG-AB WITH REFLEX 2023-05-15 09:32:00 Concha [facility] CBC WITH DIFF 2023-05-15 09:32:00 Concha [facility] HEPATITIS B SURFACE ANTIGEN 2023-05-15 09:32:00 Concha [facility] RH IMMUNE GLOBULIN REQUIRED? 2023-05-15 09:32:00 Concha [facility] HB ABO GROUPING 2023-05-15 09:32:00 [facility] 14 W[facility] 2023-05-15 09:22:40 Concha [facility] ASSIGNMENT OF BENEFITS 2023-04-26 18:34:15 Docto r Unassigned, Ali Chukson [facility] BASIC METABOLIC PANEL (NA, K, CL, CO2, GLUCOSE, BUN, CREATININE, CA) 2023-04-26 18:29:00 Minor Velasco [facility] TOTAL BETA HCG ASSAY 2023-04-26 18:29:00 Minor Velasco [facility] CBC WITH DIFF 2023-04-26 18:29:00 Minor Velasco [facility] acute hospital URINALYSIS 2023-04-26 18:29:00 Minor Velasco [facility] acute hospital POCT TEST 2023-04-26 18:29:00 Minor Velasco [facility] NOTICE OF PRIVACY PRACTICES 2023-04-26 17:04:19 Doctor Unassigned, Ali Chukson [facility] CONSENT/REFUSAL FOR DIAGNOSIS AND TREATMENT 2023-04-26 17:03:50 Doctor Unassigned, Ali Chukson [facility] US OVARY TORSION 2023-01-22 04:45:00 Rosalba Batista [facility] POCT TEST 2023-01-22 03:44:00 Joan Batista [facility] URINALYSIS 2023-01-22 03:41:00 Rosalba Batista [facility] LIPASE 2023-01-22 03:22:00 Gabriela [facility] COMP. METABOLIC PANEL ([id number]) 2023-01-22 03:22:00 Rosalba Batista [facility] CBC WITH DIFF 2023-01-22 03:22:00 Rosalba Batista [facility] CONSENT/REFUSAL FOR DIAGNOSIS AND TREATMENT 2023-01-22 01:09:11 Doctor Unassigned, Ali Chukson [facility] Encounters Start Date/Time End Date/Time Encounter Type Admission Type Attending Clinicians Care Facility Care Department Encounter ID Source 2023-10-29 09:00:00 2023-10-29 10:16:26 Initial Visit [place] [facility]EE RANCHER [facility] [id number] 350.1.13.10 4.2.7.2.686 [id number] [facility] 2023-06-05 13:00:00 2023-06-05 13:15:00 Routine Visit [place] [facility]EE [facility]AN[facility] [id number] 350.1.13.10 4.2.7.2.686 [id number] [facility] 2023-05-15 00:53:00 2023-05-15 19:25:00 Hospital Encounter Concha Paresh [facility] [id number] 350.1.13.10 4.2.7.2.686 [id number] [facility] 2023-04-26 11:15:00 2023-04-26 14:40:00 Emergency X MINOR VELASCO [facility] ERT [id number] [facility] 2023-04-26 11:15:00 2023-04-26 14:40:00 Emergency Minor Velasco [facility] [id number] 350.1.13.10 4.2.7.2.686 [id number] [facility] 2023-01-21 19:37:00 2023-01-21 23:59:00 Emergency Rosalba Batista [facility] [id number] 350.1.13.10 4.2.7.2.686 [id number] [facility] 2023-01-21 19:37:00 2023-01-21 23:59:00 Emergency X ROSALBA BATISTA MATTHEW [facility] ERT [id number] [facility] 2022-12-09 00:00:00 2022-12-09 00:00:00 Telephone [facility] [id number] 350.1.13.10 4.2.7.2.686 [id number] [facility] 2021-09-19 03:33:00 2021-09-19 03:33:00 Outpatient FERGUSSARAI_JO [facility] [id number] [place] [facility] Results Test Description Test Time Test Comments Results Result Co mments Source [facility] w/o Specific [id number] 13:56:00* Test Item Value Reference Range Interpretation Comme nts POCT PH U (test code = 3254) 5 mg/dl 5-8 POCT U LEUK EST (test code = 3263) trace Negative - Negative POCT U NIT (test code = 3262) neg Negative - Negati ve POCT U PROT (test code = 3259) + Negative - Negat gabriel POCT U GLU (test code = 3256) neg Negative - Negati ve POCT U KETONE (test code = 3258) neg Negative - Neg ative POCT U BLD (test code = 3257) 50 Negative - Negati ve [facility] Stain/KB [id number] 16:42:00* Test Item Value Reference Range Interpretation Comme nts HGB STAIN (test code = 843) Negative RHIG REQUIRED? (test code = 1747) 1 Syringe BLEED IN MLS (test cod e = 5045) See comment 0mL [facility] GLOBULIN REQUIRED?2023-05-15 15:23:24* Test Item Value Reference Range Interpretation Comme nts RHIG REQUIRED? (test code = 1747) Hgb Stain Rqd. Pt was 18 weeks Performed at [facility] Laboratory Services - [facility]LC Blood [address] [place] [id number] Free: [phone] No. [id number] [facility] IMMUNE [id number] 15:23:18* Test Item Value Reference Range Interpretation Comme nts RHIG CANDIDATE? (test code = 5188) Yes- see comment A Patient is a candidate for RhIg- Patient is Rh Negative and baby is Rh Unknown.Performed at [facility] Laboratory Services - [facility] Blood [address] [place] [id number] Free: [phone] No. [id number] Lab Interpretation (test code = 79471-8) Abnormal [facility] PEL[facility] > 14 [id number] 14:05:57EXAM: Obstetrics ultrasound HISTORY: confirm IUFD; LMP 01/09/2023 TECHNIQUE:Transabdominal sonographic evaluation of the uterus is performed. FINDINGS:An intrauterine is identified with the f ollowingmeasurements:- Head circumference 14.09 cmFemur length 2.72 cm No cardiac activity orfetal movement is seen. There is very minimalamount of fluid in the gestational sac. Left ovary measures 2.8 x 1.5 x 2.4 cm and the right ovary measures 2.8 x2.1 x 2.5 cm.[facility] AG-AB WITH [id number] 10:37:23* Test Item Value Reference Range Interpretation Comme [facility] HIV Semi-quantitative (test code = 15778-8) 0.10 Negative NIKIA (test code = NIKIA) Non-reactive for HIV-1 antigen and HIV-1/HIV-2 antibodies. ?No laboratory evidence of HIV infection. ?Repeat in 2-4 weeks if acute HIV infection is suspected. [facility]atitis B Surface [id number] 10:28:00 * Test Item Value Reference Range Interpretation Comme [facility] HBsAg Semi-Quantitative (nawaf t code = 5195-3) 0.05 Negative [facility] Confirmation (Lab Only)2023-05-15 10:01:00* Test Item Value Reference Range Interpretation Comme nts ABO & RH (test code = 20) O Negative [facility] WITH [id number] 09:43:18* Test Item Value Reference Range Interpretation Comme nts WBC (test code = 6690-2) 17.72 4.30-11.10 H RBC (test code = 789-8) 4.10 3.93-5.25 HGB (test code = 718-7) 11.4 g/dL 11.6-15.0 L HCT (test code = 4544-3) 34.7 % 35.7-45.2 L MCV (test code = 787-2) 84.6 fL 80.6-95.5 MCH (test code = 785-6) 27.8 pg 25.9-32.8 MCHC (test code = 786-4) 32.9 g/dL 31.6-35.1 RDW-SD (test code = 88859-2) 43.8 fL 39.0-49.9 RDW-CV (test code = 788-0) 14.3 % 12.0-15.5 PLT (test code = 777-3) 287 166-358 MPV (test code = 68694-8) 8.8 fL 9.5-12.9 L NRBC/100 WBC (test code = 8157290313) 0.0 0.0-10.0 NRBC x10^3 (test code = 2097602918) See_Comment [Automated message] The system which generated this result transmitted reference range: 10*3/?L. The reference range was not used to interpret this result as normal/abnormal. GRAN MAT (NEUT) % (test code = 770-8) 82.2 % IMM GRAN % (test code = 8615103689) 0.30 % LYMPH % (test code = 736-9) 13.2 % MONO % (test code = 5905-5) 3.5 % EOS % (test code = 713-8) 0.5 % BASO % (test code = 706-2) 0.3 % GRAN MAT x10^3(ANC) (test code = 3283226690) 14.57 10*3/uL 1.88-7.09 H IMM GRAN x10^3 (test code = 2453866323) 0.06 10*3/uL 0.00-0.06 LYMPH x10^3 (test code = 731-0) 2.34 10*3/uL 1.32-3.29 MONO x10^3 (test code = 742-7) 0.62 10*3/uL 0.33-0.92 EOS x10^3 (test code = 711-2) 0.08 10*3/uL 0.03-0.39 BASO x10^3 (test code = 704-7) 0.05 10*3/uL 0.01-0.07 Lab Interpretation (test code = 21132-3) Abnormal [facility] - ONCE [id number] 09:37:00 * Test Item Value Reference Range Interpretation Comme nts ABO & RH (test code = 20) O NEGATIVE IAT (test code = 1185) Negative [facility] BHCG (QUANTITATIVE)2023-04-26 20:28:46* Test Item Value Reference Range Interpretation Comme nts BETA HCG (test code = 2472112754) 84167.00 See_Comment [Automated [employer] ge] The system which generated this result transmitted reference range: Non- female and male patients: <5 mIU/mL. The reference range was not used to interpret this result as normal/abnormal. NIKIA (test code = NIKIA) Gestational Age ?Range (mIU/mL) 1-10 ?Weeks ?[id number] Weeks ?67531-95638148-21 Weeks ?4699-63493334-98 Weeks ?5547-817637 Biotin has been reported to cause a negative bias, interpret results relative to patient's use of biotin. [facility] (NA, K, CL, CO2, GLUCOSE, BUN, CREATININE, CA)2023-04-26 19:09:51* Test Item Value Reference Range Interpretation Comme nts NA (test code = 4749935613) 135 mmol/L 135-145 K (test code = 1077062589) 3.9 mmol/L 3.5-5.0 CL (test code = 2145580655) 104 mmol/L 98-108 CO2 TOTAL (test code = 7737757649) 24 mmol/L 23-31 AGAP (test code = 3299529943) 7 2-16 BUN (test code = 4057214426) 6 mg/dL 7-23 L GLUCOSE (test code = 4843710222) 74 mg/dL 70-110 CREATININE (test code = 2160-0) 0.52 mg/dL 0.50-1.04 CALCIUM (test code = 7558294242) 9.3 mg/dL 8.6-10.6 eGFR (test code = 39003-5) 137.5 mL/min/1.73m2 CKD-EPI eGFR (2020). Assuming creatinine has been stable day-to-day for at least three months, the eGFR indicates Category G1 (>= 90 mL/min/1.73 m2) Lab Interpretation (test code = 43520-5) Abnormal [facility] WITH [id number] 18:59:50* Test Item Value Reference Range Interpretation [...] 33.2 g/dL 31.6-35.1 RDW-SD (test code = 64493-9) 43.5 fL 39.0-49.9 RDW-CV (test code = 788-0) 14.0 % 12.0-15.5 PLT (test code = 777-3) 322 166-358 MPV (test code = 20662-2) 9.3 fL 9.5-12.9 L NRBC/100 WBC (test code = 4114645535) 0.0 0.0-10.0 NRBC x10^3 (test code = 7891588790) See_Comment [Automated messa ge] The system which generated this result transmitted reference range: 10*3/?L. The reference range was not used to interpret this result as normal/abnormal. GRAN MAT (NEUT) % (test code = 770-8) 73.2 % IMM GRAN % (test code = 3403987187) 0.30 % LYMPH % (test code = 736-9) 21.2 % MONO % (test code = 5905-5) 4.4 % EOS % (test code = 713-8) 0.7 % BASO % (test code = 706-2) 0.2 % GRAN MAT x10^3(ANC) (test code = 5491815506) 7.16 10*3/uL 1.88-7.09 H IMM GRAN x10^3 (test code = 3604783269) 0.03 10*3/uL 0.00-0.06 LYMPH x10^3 (test code = 731-0) 2.07 10*3/uL 1.32-3.29 MONO x10^3 (test code = 742-7) 0.43 10*3/uL 0.33-0.92 EOS x10^3 (test code = 711-2) 0.07 10*3/uL 0.03-0.39 BASO x10^3 (test code = 704-7) 0.01-0.07 Lab Interpretation (test code = 20712-8) Abnormal [facility] [id number] 18:29:00* Test Item Value Reference Range Interpretation Comme nts POCT PREG (test code = 1605) Positive On board controls acceptable with C Line (test code = 3574) Yes POCT PREG LOT # (test code = 3575) [id number] POCT PREG TEST DATE ( test code = 3576) 04-13-24 Lab Interpretation (test cod e = 70788-5) Normal [facility]. METABOLIC PANEL (78439)2023-01-22 03:49:36* Test Item Value Reference Range Interpretation Comme nts NA (test code = 6012094217) 136 mmol/L 135-145 K (test code = 7348024810) 3.9 mmol/L 3.5-5.0 CL (test code = 1398689067) 102 mmol/L 98-108 CO2 TOTAL (test code = 1459541830) 27 mmol/L 23-31 AGAP (test code = 8069658572) 7 2-16 BUN (test code = 3129794283) 13 mg/dL 7-23 GLUCOSE (test code = 0023631742) 79 mg/dL 70-110 CREATININE (test code = 1005650026) 0.64 mg/dL 0.50-1.04 TOTAL BILI (test code = 3792836360) 1.3 mg/dL 0.1-1.1 H CALCIUM (test code = 1771874051) 9.0 mg/dL 8.6-10.6 T PROTEIN (test code = 3206062470) 8.1 g/dL 6.3-8.2 ALBUMIN (test code = 2421211919) 4.4 g/dL 3.5-5.0 ALK PHOS (test code = 3392011650) 69 U/L 34-122 ALTv (test code = 1742-6) 18 U/L 5-35 AST(SGOT) (test code = 8952249470) 27 U/L 13-40 eGFR (test code = 44533-4) 130.7 mL/min/1.73m2 CKD-EPI eGFR (2020). Assuming creatinine has been stable day-to-day for at least three months, the eGFR indicates Category G1 (>= 90 mL/min/1.73 m2) Lab Interpretation (test code = 97222-7) [facility] Test Item Value Reference Range Interpretation Comme nts LIPASE (test code = 9244608452) 72 U/L 0-220 Lab Interpretation (test cod e = 01418-3) [id number] 03:44:00* Test Item Value Reference Range Interpretation Comme nts POCT PREG (test code = 1605) Negative On board controls acceptable with C Line (test code = 3574) Yes POCT PREG LOT # (test code = 3575) [id number] POCT PREG TEST DATE ( test code = 3576) 04 05 25 Lab Interpretation (test cod e = 42038-8) Normal [facility] WITH [id number] 03:40:14* Test Item Value Reference Range Interpretation [...] 32.5 g/dL 31.6-35.1 RDW-SD (test code = 09093-9) 40.6 fL 39.0-49.9 RDW-CV (test code = 788-0) 13.2 % 12.0-15.5 PLT (test code = 777-3) 368 See_Comment H [Automated messa ge] The system which generated this result transmitted reference range: 166 - 358 10*3/?L. The reference range was not used to interpret this result as normal/abnormal. MPV (test code = 30987-6) 8.8 fL 9.5-12.9 L NRBC/100 WBC (test code = 9084985117) 0.0 See_Comment [Automated Near Page ssage] The system which generated this result transmitted reference range: 0.0 - 10.0 /100 WBCs. The reference range was not used to interpret this result as normal/abnormal. NRBC x10^3 (test code = 8540997084) See_Comment [Automated messa ge] The system which generated this result transmitted reference range: 10*3/?L. The reference range was not used to interpret this result as normal/abnormal. GRAN MAT (NEUT) % (test code = 770-8) 51.4 % IMM GRAN % (test code = 8800748845) 0.30 % LYMPH % (test code = 736-9) 41.9 % MONO % (test code = 5905-5) 4.1 % EOS % (test code = 713-8) 1.8 % BASO % (test code = 706-2) 0.5 % GRAN MAT x10^3(ANC) (test code = 3600691665) 4.05 10*3/uL 1.88-7.09 IMM GRAN x10^3 (test code = 5824703726) 0.00-0.06 LYMPH x10^3 (test code = 731-0) 3.30 10*3/uL 1.32-3.29 H MONO x10^3 (test code = 742-7) 0.32 10*3/uL 0.33-0.92 L EOS x10^3 (test code = 711-2) 0.14 10*3/uL 0.03-0.39 BASO x10^3 (test code = 704-7) 0.04 10*3/uL 0.01-0.07 Lab Interpretation (test code = 76902-9) Abnormal [facility] Consult Notes Date/Time Note Provider Source 2023-05-15 12:17:24 Associated Order(s): CONSULT HEMMER [employer]ST[employer]-ADULT Test Carrier Update: CM spoke with patient and boyfriend, Wei Garcia, , at bedside. Discussed and provided resources in regards to cremation/burial, local homes, autopsy information, post depression, support groups, and mental health help resources. Grief Support - Critical Support Type of intervention: Other (comment) ( Demise) People present: Significant other Action taken: Provided support Resources Provided: Counseling resources;Support groups; Home Information;Indigent Burial Assistance;Other (see comments) (post depression resources, mental health resources, autopsy information) Disposition of body: (patient currently undecided, leaning towards cremation at a home) Critical care family support comment: provided patient with SW contact for Cesilia Mcdonnell to follow-up for continued assistanced, SW/JAMIE to follow along Leandra Oro, RN, BSN Case Management Test Carrier [address] [address] O [phone] [email or web address] LE MOLDER Leandra Oro RN [facility] - Health History and Physical Notes Date/Time Note Provider Source 2023-05-15 02:59:15 TRIAGE HISTORY & PHYSICAL IDENTIFYING DATA Linda Quevedo is 17 year old, /White, Unknown, female with SEBASTIAN Not found.. : 2005 Primary Care Physician: PATIENT DOES NOT HAVE A PCP CHIEF COMPLAINT iufd HISTORY OF PRESENT ILLNESS Patient is a 17-year-old G1, P0 female transferred from an outside ER with a diagnosis of IUFD at approximately 18 weeks gestation. Patient reports an LMP of January 09 corresponds with ultrasound dating from the outside facility. Patient reports that she began having vaginal bleeding today that prompted her to go to the emergency room. She also notices that she has been feeling some pelvic pressure. Lately she has been having some cramping. She reports feeling the baby move as early as today. Patient denies any recent illnesses. Patient denies fever, headache, vision changes, cough, chest pain, shortness of breath, nausea, vomiting, diarrhea, constipation, new rashes, hip problems, muscle aches, leakage of fluid, change in discharge, urinary urgency, urinary frequency PAST OBSTETRIC HISTORY OB History Para Term AB Living 1 SAB IAB Ectopic Multiple Live Births # Outcome Date GA Lbr Roshan/2nd Weight Sex Delivery Anes PTL Lv 1 Current PAST MEDICAL HISTORY Problem list: Patient Active Problem List Diagnosis Date Noted Missed 05/15/2023 Nabothian cyst 01/21/2023 Abdominal pain, unspecified abdominal location 01/21/2023 No past medical history on file. PAST SURGICAL HISTORY No past surgical history on file. MEDICATIONS: Current Facility-Administered Medications Medication Dose Route Frequency Last Rate Last Admin carboprost (HEMABATE) injection 250 mcg 250 mcg Intramuscular Q2HPRN lactated ringers IV infusion 1,000 mL 1,000 mL IV Infusion TITRATE lactated ringers IV infusion 500 mL 500 mL IV Infusion PRN - SEE INSTRUCTIONS lidocaine 1% (PF) (XYLOCAINE) injection 0.3 mL 0.3 mL Infiltration PRN - SEE INSTRUCTIONS lidocaine 1% (XYLOCAINE) 10 mg/mL (1 %) injection 50 mL 50 mL Infiltration PRN - SEE INSTRUCTIONS methylergonovine (METHERGINE) injection 0.2 mg 0.2 mg Intramuscular Q4HPRN miSOPROStoL (CYTOTEC) tablet 1,000 mcg 1,000 mcg Rectal PRN miSOPROStoL (CYTOTEC) tablet 400 mcg 400 mcg Oral Q4H morpHINE (2 mg/mL) injection 6 mg 6 mg Slow IV Push ONCE PRN oxytocin (PITOCIN) 30 units in NS 500 mL IV infusion 600 mL/hr IV Infusion PRN proMETHazine (PHENERGAN) 25 mg in NS 50 mL IV piggyback (CNR) 25 mg IV Piggyback ONCE PRN sodium citrate-citric acid (BICITRA) 500-334 mg/5 mL solution 30 mL 30 mL Oral PRE-PROCEDURE ONCE tranexamic acid (CYKLOKAPRON) injection 1,000 mg 1,000 mg Intravenous PRN ALLERGIES Patient has no known allergies. HOME MEDICATIONS No medications prior to admission. SOCIAL HISTORY Tobacco History: Social History Tobacco Use Smoking Status Not on file Smokeless Tobacco Not on file Drug History: Social History Substance and Sexual Activity Drug Use Not on file Alcohol History: Social History Substance and Sexual Activity Alcohol Use None FAMILY HISTORY No family history on file. REVIEW OF SYSTEMS General: negative Constitutional: negative Eyes: negative ENT/Mouth: negative Cardiovascular: negative Respiratory: negative Gastrointestinal:negative Genitourinary: Vaginal bleeding Musculoskeletal: negative Skin/breast: negative Neurological: negative Psychiatric: negative Endocrine: negative Hemat/Lymph: negative Allergic/Immuno:none VITAL SIGNS BP: (114)/(58) Temp: [37.2 ?C (98.9 ?F)] Temp source: Oral (05/14 0214) Pulse: [68] Resp: [18] SpO2: [97 %] Height: [162.6 cm (5' 4.02")] Weight: [61.2 kg (135 lb)] BMI (calculated): [23.16] PHYSICAL EXAMINATIONS General: In general the patient appears to be in no acute distress. She is alert and oriented cooperative and pleasant interact with. HEENT: Head normocephalic atraumatic. Extraocular muscles are intact and symmetrical. CV: Heart has a regular rate and rhythm. No gallops rubs or murmurs of significance Lungs: Lungs clear to auscultation bilaterally Abdomen: Abdomen is gravid and soft Back: No CVA tenderness to palpation Extremities: Extremities nontender nonedematous : Perineum is dry without masses lesions or erythema. Vulva is without masses lesions or erythema. Patient has ballooning membranes into the vaginal canal. Unable to reach the cervix Bedside ultrasound: There is no cardiac activity. Placenta is anterior. Fetus is vertex. Cervix is dilated with hourglassing membranes into the vaginal canal. REVIEW OF LABORATORY, PATHOLOGY, AND RADIOLOGY DATA OBSTETRIC LABS CBC WBC (10*3/?L) Date Value 04/26/2023 9.78 RBC (10*6/?L) Date Value 04/26/2023 4.62 PLT (10*3/?L) Date Value 04/26/2023 322 HGB (g/dL) Date Value 04/26/2023 13.1 HCT (%) Date Value 04/26/2023 39.4 ASSESSMENT AND PLAN Linda Quevedo is a 17 year old at 18wks by LMP consistent with reported US from outside facility who presents with vaginal bleeding and IUFD dx at outside ER.. 1.Incompetent cervix: This has likely been present for days at the minimum. The bleeding is likely the beginning of an abruption. No large abruption seen on formal US. Pt counselled to seek medical care early with future pregnancies. May benefit from close monitoring and or cervical cerclage. 2.Missed : <20wks gestation. Has been confirmed by myself and formal US. Will proceed with misoprostol 400mg po, then 200 q4hrs. Pt has been counselled to the possible need for surgical intervention including D&C. Hysterectomy, and blood transfusion. Written informed consent obtained. 3.RH neg blood by ER provider report. Pt was given Rhogam at the outside facility. I spent a total of 30 minutes on the day of this note The time spent for patient care includes: PreCharting (eg, review of tests, notes, etc.), Performing a medically appropriate examination and/or evaluation, Counseling and educating the patient/family/caregiver and Documenting clinical information in the electronic or other health record. Paresh Kern MD [facility] Notes Date/Time Note Provider Source 2023-05-15 12:41:31 [facility] 2023-05-15 06:01:53 DELIVERY BY SPONTANEOUS VAGINAL DELIVERY Delivery Date: 05/15/2023 Delivery Time: 5:49 AM Delivery Summary The patient was admitted to the Labor & Delivery unit for IOL at 18 weeks due to missed . Delivery Physician: Paresh Kern MD Intrapartum Anesthesia/Analgesia: none Mode of Delivery: Delivery of marina fetus with cephalic presentation Fetus Spontaneous vaginal delivery of head with cephalic position in cull. Placenta quickly followed. Bag was broken and demised fetus was removed and prepared for family to see. A normal, male was delivered. The umbilical cord was double clamped, cut and the was handed off the field to the circulating nurse Placenta Placenta was delivered spontaneously while the abdominal hand lifted the uterus cephalad and other hand keeping the umbilical cord slightly taut. Laceration Laceration Repair: No laceration repair needed. Fourth Stage Fourth stage of labor was managed by uterine massage with abdominal hand and infusion 30 units of pitocin mixed with intravenous fluid. EBL: 0 200 Complications: none Weight: 1 Minute 5 Minute 10 Minute Totals: 0 0 0 IUFD Survey Note Photographs of the fetus and placenta in the chart: No Photographs of any abnormalities included in the chart: No Written documentation of any findings and/or abnormalities of the fetus, placenta and umbilical cord: fetus appeared intact and normal. [facility] 2023-05-15 05:13:51 Problem: Intrapartum process (including labor pain) Goal: Absence of or reduction of complications of labor Outcome: Progressing as expected Goal: Able to cope with pain Outcome: Progressing as expected Goal: Adequate to move to next level of care Outcome: Progressing as expected Goal: Reduction in pain sensation Outcome: Progressing as expected Problem: Grieving Goal: Able to express feelings of grief Outcome: Progressing as expected Problem: Falls, Risk of Goal: Absence of falls Outcome: Progressing as expected Problem: Pain Goal: Reduction in pain sensation Outcome: Progressing as expected Goal: Control of pain at or below patient's documented comfort goal Outcome: Progressing as expected IA Nichols RN [facility] 2023-05-15 02:18:55 Initiated IA Singh RN [facility] 2023-04-26 14:39:55 Written/verbal d/c instructions, out of er no distress IA Carroll RN [facility] 2023-04-26 11:10:10 Patient states: "It was the stomach acid I usually throw up in the morning. There was some spirals of blood a bunch of them." Reports being 15 weeks . IA Mcdonnell RN [facility]
[2023-11-04 10:13] LABS: Anion Gap 6.5 mEq/L (5.0-15.0); Potassium 3.5 mEq/L (3.5-5.1)
--- NOTE | 2023-11-04 11:00 | RAD REPORT ---
EXAM DESCRIPTION: US - Transvaginal OB - 11/04/2023 10:29 am CLINICAL HISTORY: with pelvic pain COMPARISON: None FINDINGS: The uterus measures 10 x 7 x 7 centimeters. A normal appearing gestational sac is present within the endometrium. Within this is a yolk sac and pole with a crown-rump length 2.7 centim eters. Cardiac activity 179 beats per minute Neither ovary seen secondary to overlying bowel gas The right and left adnexa are unremarkable No significant free fluid is seen. IMPRESSION: Single live intrauterine with an estimated gestational age 9 weeks 4 days SEBASTIAN 06/04/2024
--- NOTE | 2023-11-04 11:47 | EDPHYS ---
Physician Documentation [facility] Name: Paz Castrejon Age: 18 yrs Sex: Female : 2005 Arrival Date: 11/04/2023 Time: 09:19 Bed 19 Private MD: ED Physician Phil Leyva HPI: 11/03 10:35 This 18 yrs old Female presents to ER via Ambulatory with complaints of 9 wks rn , Abdominal Pain, Back Pain, Urinary Problem. 10:35 The patient presents with pain that is acute. The symptoms are located in the low back. rn Onset: The symptoms/episode began/occurred yesterday. Modifying factors: The patient symptoms are alleviated by nothing, the patient symptoms are aggravated by nothing. Severity of symptoms: At their worst the symptoms were mild, in the emergency department the symptoms are unchanged. The patient has not experienced similar symptoms in the past. Patient reports approximately 9 weeks , reports increase in urination and dysuria that began yesterday associated with low back pain and lower abdominal pain. No fever or chills. No vomiting. Patient reports pain is mild. No vaginal bleeding or leakage of fluid.. Historical: - Allergies: 09:27 No Known Allergies; iw - PMHx: 09:27 depressive disorder; iw - PSHx: 09:27 Appendectomy; iw - Infectious Disease History:: Denies. - Social history:: Smoking status: Patient denies any tobacco usage or history of. - Family history:: not pertinent. - Hospitalizations: : No recent hospitalization is reported. ROS: 10:35 Constitutional: Negative for fever, chills, and weight loss, Cardiovascular: Negative rn for chest pain, palpitations, and edema, Respiratory: Negative for shortness of breath, cough, wheezing, and pleuritic chest pain, Abdomen/GI: Positive for lower abdominal pain Back: Positive for lower back pain : Positive for dysuria and increased urinary frequency. Exam: 10:35 Constitutional: This is a well developed, well nourished patient who is awake, alert, rn and in no acute distress. Cardiovascular: Regular rate and rhythm. No pulse deficits. Respiratory: No increased work of breathing, no retractions or nasal flaring. Abdomen/GI: Soft, no focal tenderness. No peritoneal signs. Back: No CVA tenderness. Vital Signs: 09:24 BP 113 / 83; Pulse 78; Resp 16; Temp 98.6; Pulse Ox 100% on R/A; iw 11:36 BP 125 / 75; Pulse 73; Resp 16 S; Pulse Ox 100% on R/A; kc6 MDM: 09:32 Patient medically screened. rn 11:44 Differential diagnosis: Urinary tract infection, evaluation of . Data rn reviewed: vital signs, nurses notes, lab test result(s), radiologic studies, ultrasound, and as a result, I will discharge patient. Counseling: I had a detailed discussion with the patient and/or guardian regarding the historical points, exam findings, and any diagnostic results supporting the discharge/admit diagnosis, lab results, radiology results, the need for outpatient follow up, to return to the emergency department if symptoms worsen or persist or if there are any questions or concerns that arise at home. Special discussion: I discussed with the patient/guardian in detail that at this point there is no indication for admission to the hospital. It is understood, however, that if the symptoms persist or worsen the patient needs to return immediately for re-evaluation. Based on the history and exam findings, there is no indication for further emergent testing or inpatient evaluation. I discussed with the patient/guardian the need to see the OB Gyne specialist for further evaluation of the symptoms. ED course: Labs unremarkable for acute findings, UA shows UTI with hematuria. Likely cystitis. Patient has had appendectomy in the past. Will discharge home with antibiotics. Recommend close OB follow-up given history of incompetent cervix and placental abruption with her last . Ultrasound shows normal single viable without complication.. 11:46 ED course: Patient denies any vaginal bleeding.. rn 11/03 09:33 Order name: Abo/rh Typing; Complete Time: 10:35 rn 11/03 09:33 Order name: Basic Metabolic Panel; Complete Time: 10:35 rn 11/03 09:33 Order name: CBC with Diff; Complete Time: 10:35 rn 11/03 09:33 Order name: Test, Urine; Complete Time: 10:35 rn 11/03 09:33 Order name: Quantitative Hcg; Complete Time: 10:35 rn 11/03 09:33 Order name: Urinalysis w/ reflexes; Complete Time: 10:35 rn 11/03 10:02 Order name: Urine Culture EDID 11/03 09:33 Order name: US Transvaginal Ob rn 11/03 09:33 Order name: IV Saline Lock; Complete Time: 09:42 rn 11/03 09:33 Order name: Labs collected and sent; Complete Time: 09:42 rn 11/03 09:33 Order name: NPO; Complete Time: 09:42 rn Administered Medications: No medications were administered Disposition Summary: 11/04/23 11:46 Discharge Ordered Notes: Location: Home rn Problem: new rn Symptoms: have improved rn Condition: Stable rn Diagnosis - UTI/ Urinary tract infection, site not specified rn - related conditions, unspecified, first trimester rn Followup: rn - With: Private Physician - When: As needed - Reason: Recheck today's complaints, Re-evaluation by your physician Discharge Instructions: - Discharge Summary Sheet rn - Urinary Tract Infection, Adult rn - First Trimester of rn Forms: - Medication Reconciliation Form rn - Antibiotic rn transfer - Prescription Opioid Use rn - Patient Portal Instructions rn - Leadership Thank You Letter rn Prescriptions: - Macrobid 100 mg Oral Capsule - take 1 capsule ORAL route every 12 hours for 7 days; 14 capsule; Refills: 0, rn Product Selection Permitted Signatures: Dispatcher [employer] Joan Allred RN RN iw Phil Leyva MD MD ornamenter: (The following items were deleted from the chart) 09 09:27 Allergies: Advil PM; [facility] 09:33 09:33 ABO/RH TYPING+BB.LAB.BRZ ordered. EDMS EDMS 09:33 09:33 BASIC METABOLIC PANEL+C.LAB.BRZ ordered. EDMS EDMS 09: 09:33 CBC+H.LAB.BRZ ordered. EDMS EDMS 09:33 09:33 Test, Urine+UC.LAB.BRZ ordered. EDMS EDMS 09:33 09:33 QUANTITATIVE HCG+C.LAB.BRZ ordered. EDMS EDMS 09:33 09:33 Urinalysis+U.LAB.BRZ ordered. EDMS EDMS
--- NOTE | 2023-11-04 11:47 | ER ---
Nurse's Notes [facility] Name: Paz Castrejon Age: 18 yrs Sex: Female : 2005 Arrival Date: 11/04/2023 Time: 09:19 Bed 19 Private MD: Diagnosis: UTI/ Urinary tract infection, site not specified; related conditions, unspecified, first trimester Presentation: 11/03 09:24 Chief complaint: Patient states: thought it was a uti, having lower back pain and lower iw abd pain, feels like not emptying bladder, started 24 hours ago, had appt at [facility] on oct 28, they did blood work and urine but she did not have a UTIat that time. Coronavirus screen: At this time, the client does not indicate any symptoms associated with coronavirus-19. Ebola Screen: No symptoms or risks identified at this time. Initial Sepsis Screen: Does the patient meet any 2 criteria? No. Patient's initial sepsis screen is negative. Does the patient have a suspected source of infection? No. Patient's initial sepsis screen is negative. Risk Assessment: Do you want to hurt yourself or someone else? Patient reports no desire to harm self or others. Onset of symptoms was November 04, 2023. 09:24 Method Of Arrival: Ambulatory iw 09:24 Acuity: JOSR 3 iw Historical: - Allergies: 09:27 No Known Allergies; iw - PMHx: 09:27 depressive disorder; iw - PSHx: 09:27 Appendectomy; iw - Infectious Disease History:: Denies. - Social history:: Smoking status: Patient denies any tobacco usage or history of. - Family history:: not pertinent. - Hospitalizations: : No recent hospitalization is reported. Screenin:46 [facility] ED Fall Risk Assessment (Adult) History of falling in the last 3 months, kc6 including since admission No falls in past 3 months (0 pts) Confusion or Disorientation No (0 pts) Intoxicated or Sedated No (0 pts) Impaired Gait No (0 pts) Mobility Assist Device Used No (0 pt) Altered Elimination No (0 pt) Score/Fall Risk Level 0 - 2 = Low Risk. Abuse screen: Denies threats or abuse. Denies injuries from another. Nutritional screening: No deficits noted. Tuberculosis screening: No symptoms or risk factors identified. Assessment: 10:47 General: Appears in no apparent distress. comfortable, well groomed, well developed, kc6 Behavior is calm, cooperative, appropriate for age. Pain: Complains of pain in back and suprapubic area. Neuro: Level of Consciousness is awake, alert, obeys commands, Oriented to person, place, time, situation, Appropriate for age. Cardiovascular: Capillary refill < 3 seconds. Respiratory: Airway is patent Trachea midline Respiratory effort is even, unlabored, Respiratory pattern is regular, symmetrical. GI: Abdomen is flat, non-distended, Bowel sounds present X 4 quads. Abd is soft and non tender X 4 quads. : Reports burning with urination, cramping, lower back Denies vaginal bleeding. EENT: No signs and/or symptoms were reported regarding the EENT system. Derm: No signs and/or symptoms reported regarding the dermatologic system. Skin is intact, is healthy with good turgor, Skin is pink, warm \T\ dry. Musculoskeletal: No signs and/or symptoms reported regarding the musculoskeletal system. Circulation, motion, and sensation intact. Capillary refill < 3 seconds, Range of motion: intact in all extremities. Vital Signs: 09:24 BP 113 / 83; Pulse 78; Resp 16; Temp 98.6; Pulse Ox 100% on R/A; iw 11:36 BP 125 / 75; Pulse 73; Resp 16 S; Pulse Ox 100% on R/A; kc6 ED Course: 09:22 Patient arrived in ED. mr 09:27 Triage completed. iw 09:28 Arm band placed on. iw 09:29 Margaret Giron, RN is Primary Nurse. kc6 09:32 Phil Leyva MD is Attending Physician. rn 09:42 Abo/rh Typing Sent. bc6 09:42 Basic Metabolic Panel Sent. bc6 09:42 CBC with Diff Sent. bc6 09:42 Test, Urine Sent. bc6 09:42 Quantitative Hcg Sent. bc6 09:42 Urinalysis w/ reflexes Sent. bc6 09:43 Initial lab(s) drawn, by me, sent to lab. Urine collected: clean catch specimen. bc6 Inserted saline lock: 20 gauge in right antecubital area, using aseptic technique. Blood collected. Flushed with 10 mL NS. 10:30 US Transvaginal Ob In Process Unspecified. EDMS 10:46 Patient has correct armband on for positive identification. Bed in low position. Call kc6 light in reach. Side rails up X 1. Adult w/ patient. Pulse ox on. NIBP on. Door closed. Noise minimized. Lights dimmed. Warm blanket given. Pillow given. 11:57 No provider procedures requiring assistance completed. IV discontinued, intact, kc6 bleeding controlled, No redness/swelling at site. Pressure dressing applied. Administered Medications: No medications were administered Medication: :57 VIS not applicable for this client. kc6 Outcome: 11:46 Discharge ordered by . rn 11:57 Discharged to home ambulatory, with family, dawn6 11:57 Condition: good :57 Discharge instructions given to patient, Instructed on discharge instructions, follow up and referral plans. medication usage, Demonstrated understanding of instructions, follow-up care, medications, Prescriptions given X 1, :57 Patient left the ED. kc6 Signatures: Dispatcher [employer] EDPA StaleyMayra yousif, Reg Reg mr Joan Adame, RN Phil Starr MD MD rn Campbell, Kaitlyn, RN RN kc Alma Turcios [facility] Corrections: (The following items were deleted from the chart) 09:28 09:27 Allergies: Advil PM; iw rodger
[2023-11-04 12:17] VITALS: TEMP 98.6; O2SAT 100
[2023-11-04 12:19] VITALS: BP 125/75
== END 2023-11-04 11:57 | disposition home or self-care (01) ==
LOC: ER 09:19
DX: O23.41 Unspecified infection of urinary tract in pregnancy, first trimester (principal); N39.0 Urinary tract infection, site not specified; Z3A.09 9 weeks gestation of pregnancy
CPT/HCPCS: 36415; 76817; 80048; 81003; 81025; 84702; 85025; 86900; 86901; 87086; 87088

== ENCOUNTER 2024-02-04 08:10 | Emergency (ER) | payer OTHER ==
--- OUTSIDE RECORDS SUMMARY | 2024-02-04 08:14 | XMS REPORT | Continuity of Care Document ---
Author Name Unknown Address [address] [place] [address] [facility] thconnect Address [address] [place] [address] Care Team Providers Care Knockout Man Name Role Phone Renetta Yoder Primary Care Physician KIRT PARK Attending Clinician Unavail able Fartun Munoz Attending Clinician Shreya Lee MD Attending Clinician [phone] Doctor Unassigned, [place] Attending Clinician U navailable Ultrasound, Ang-Mfm Attending Clinician Unavaila ble Kirt Pedraza Attending Clinician + ASHLY XIAO Attending Clinician Un available Ashly Xiao MD Attending Clinician JUDY HILAIRO Attending Clinician Unavailable JUDY HILARIO Attending Clinician Unavailable Judy Hilario MD Attending Clinician [phone] MADELINE WINN Attending Clinician Unavail able MADELINE WINN Attending Clinician Unavail able Risk, Pgu-[place]ailf-Km/High Attending Clinician Unav ailable Madeline Winn NP Attending Clinician RENETTA GUEVARA Attending Clinician Unavailable RENETTA GUEVARA Attending Clinician Unavailable RENETTA GUEVARA Attending Clinician Unavailable 1, [facility] Room Attending Clinician UnavailRenetta Orourke MD Attending Clinician [phone] SHREYA LEE Attending Clinician Unavailable PATSY QUINONES Attending Clinician Unavailab PATSY Ornelas Attending Clinician Unavailab Patsy Ornelas DO Attending Clinician [phone] FARTUN ALVARADO Attending Clinician Unavailable Jeffery Lopez CRNA Attending Clinician [phone] Henrry Fields MD Attending Clinician +[phone] SANGEETA BURROUGHS Attending Clinician Unavailabl Sangeeta Alston MD Attending Clinician [phone], [facility] Us Room Attending Clinician Unavailab CHAVEZ Black Attending Clinician Unavailab CHAVEZ Black Attending Clinician Unavailab Chavez Ferrera Attending Clinician + [phone], [facility] Attending Clinician Unavailable Kirt Pedraza Attending Clinician + Paresh Kern MD Attending Clinician [phone] GENNARO VELASCO Attending Clinician Unavailable GENNARO VELASCO Attending Clinician Unavailable Rosalba Batista DO Attending Clinician [phone] ROSALBA BATISTA Attending Clinician Unavailable Racquel Bowman Attending Clinician [phone] KAILEE Attending Clinician Unavailable RENETTA GUEVARA Admitting Clinician Unavailable JUDY HILARIO Admitting Clinician Unavailable Judy Hilario MD Admitting Clinician [phone] SHREYA LEE Admitting Clinician Unavailable Shreya Lee MD Admitting Clinician [phone] Renetta Guevara MD Admitting Clinician [phone] CHAVEZ ABREU Admitting Clinician Unavailab Paresh Montemayor MD Admitting Clinician [phone] ROSALBA BATISTA Admitting Clinician Unavailable KAILEE Admitting Clinician Unavailable Payers Payer Name Policy Type Policy Number Effective Date Expirati on Date Source [facility] [id number] 2023 00:00:00 Problems Condition Name Condition Details Condition Category Status Onset Date Resolution Date Last Treatment Date Treating Clinician Comments Source Gallstones Gallstones Disease Active 9 00:00: 00 [facility] Biliary colic Biliary colic Disease Active 12-01 00:00: 00 [facility] History of IUFD History of IUFD Disease Active 10-28 00:00: 00 Overview: Formattin g of this note might be different from the original. At 19 weeks [facility] Supervisio n of high-risk Supervisio n of high-risk Disease Active 10-28 00:00: 00 [facility] Over weight Over weight Disease Active 10-28 00:00: 00 [facility] Nausea and vomiting in Nausea and vomiting in Disease Active 10-28 00:00: 00 [facility] Rh negative state in antepartum period Rh negative state in antepartum period Disease Active 10-28 00:00: 00 [facility] Nausea and vomiting in Nausea and vomiting in Disease Active 10-28 00:00: 00 [facility] Nabothian cyst Nabothian cyst Disease Active 2022-03 1-15 00:00: 00 [facility] 12 weeks gestation of 12 weeks gestation of Disease Resolve d 0 9-25 00:00: 00 2024-01-06 00:00:00 2024-01-06 09:56:46 [facility] 13 weeks gestation of 13 weeks gestation of Disease Resolve d 2023-0 9-24 00:00: 00 2024-01-06 00:00:00 2024-01-06 09:56:45 [facility] Missed Missed Disease Resolve d 2023-0 3-08 00:00: 00 2023-10-29 00:00:00 2023-10-29 09:22:27 [facility] Abdominal pain, unspecifie d abdominal location Abdominal pain, unspecifie d abdominal location Disease Resolve d 2022-03 1-15 00:00: 00 2023-10-29 00:00:00 2023-10-29 09:22:18 [facility] Allergies, Adverse Reactions, Alerts Allergy Name Allergy Type Status Severity Reaction(s) Onset Date Inactive Date Treating Clinician Comments Source NO KNOWN ALLERGIE S Drug Class Active [facility] Social History Social Habit Start Date Stop Date Quantity Comments Source ASSERTION 2023-09-11 00:00:00 [facility] Alcoholic beverage intake 2024-01-06 00:00:00 2024-01-06 00:00:00 Ex-drinker (finding) [facility] History of Social function 2023-06-05 00:00:00 2023-06-05 00:00:00 [facility] Tobacco use and exposure 2023-05-15 00:00:00 2023-05-15 00:00:00 Smokeless tobacco non-user [facility] Sex assigned at 2003 00:00:00 2005 00:00:00 [facility] Smoking Status Start Date Stop Date Source Tobacco smoking consumption unknown [facility] Never smoked tobacco [facility] Medications Ordered Medication Name Filled Medication Name Start Date Stop Date Current Medication? Ordering Clinician Indication Dosage Frequency Signature (SIG) Comments Components Source Nitrofurant oin&Nit. Macrocryst (MACROBID) 100 mg capsule 100 mg 2023-03 02:54: 00 12-28 02:59 :00 No 100mg 100 mg, Oral, ONCE, 1 dose, On Thu12/28/23 at 2200, Routine, Reason for Anti-Infec tive: Empiric Therapy for Suspected Infection, Empiric Therapy Site: Urine, Duration of therapy: Once (ED) [facility] Nitrofurant oin&Nit. Macrocryst 100 mg capsule 2023-03 00:00: 00 Yes [id number] 100mg Take 1 capsule by mouth in the morning and 1 capsule in the evening. [facility] pedi multivit no.91/iron fum (CHILDREN'S CHEW MULTIVIT-IR ON ORAL) 2024-1 0-14 14:14: 39 Yes Take by mouth. [facility] ondansetron 4 mg disintegrat ing tablet 2023-03 0-11 00:00: 00 Yes [id number] 4mg Take 1 tablet by mouth every 8 (eight) hours as needed for Nausea and Vomiting (N/V). [facility] acetaminoph en (TYLENOL) tablet 650 mg 12-03 23:00: 00 12-04 17:38 :55 No 650mg 650 mg, Oral, Q6H, First dose on Thu12/04/23 at 1800, Until Discontinu ed, Routine [facility] acetaminoph en (OFIRMEV) IV piggyback 1,000 mg 12-03 21:30: 00 12-03 22:23 :00 No 1000mg 1,000 mg, IV Piggyback, at 400 mL/hr Administer over 15 Minutes, ONCE, 1 dose, On Thu12/04/23 at 1630, Routine, Is the patient strict NPO and unable to tolerate oral medication s? Yes [facility] ondansetron (ZOFRAN (PF)) injection 4 mg 12-03 21:00: 00 12-03 20:28 :37 No 4mg 4 mg, Slow IV Push, ONCE, On Thu12/04/23 at 1600, For 1 dose, Doses of ondansetro n 16 mg and above need to be administer ed via IV piggyback. For Dose >=24mg ECG monitoring is advisable. [facility] ondansetron (ZOFRAN (PF)) injection 4 mg 12-03 20:28: 04 12-04 17:38 :55 No 4mg 4 mg, Slow IV Push, Q6HPRN, Nausea and Vomiting (N/V), Starting on Thu12/04/23 at 1528, Doses of ondansetro n 16 mg and above need to be administer ed via IV piggyback. For Dose >=24mg ECG monitoring is advisable. [facility] HYDROcodone -acetaminop hen (NORCO 5) tablet 1 tablet 12-03 20:26: 17 12-04 17:38 :55 No 1{tbl} 1 tablet, Oral, Q6HPRN, Starting on Thu12/04/23 at 1526, Until 12/05/23 at 1238, Routine, Pain (scale 4-6) [facility] lactated ringers IV infusion 1,000 mL 12-03 19:15: 00 12-04 14:03 :59 No 1000mL at 75 mL/hr, 1,000 mL, IV Infusion, CONTINUOUS , Starting on Thu12/04/23 at 1415, Until 12/05/23 at 0903, Routine, PACU [facility] FENTanyl (PF) (SUBLIMAZE) injection 25 mcg 12-03 19:13: 54 12-03 21:05 :18 No 25ug 25 mcg, Slow IV Push, Q5MIN PRN, 4 doses, Starting on Thu12/04/23 at 1413, Until Thu12/04/23 at 1605, Routine, Pain (scale 7-10), PACU [facility] glycopyrrol ate (ROBINUL) injection 12-03 19:02: 00 12-03 19:07 :45 No Intravenou s, ONCE INTRA PROCEDURE, Starting on Thu12/04/23 at 1402, Until Thu12/04/23 at 1407, Routine, Intra-op [facility] neostigmine methylsulfa te (BLOXIVERZ) injection 12-03 19:02: 00 12-03 19:07 :26 No Slow IV Push, ONCE INTRA PROCEDURE, Starting on Thu12/04/23 at 1402, Until Thu12/04/23 at 1407, Routine, Intra-op [facility] bupivacaine (preserv free) (SENSORCAIN E MPF) 0.25 % (2.5 mg/mL) 30 mL, lidocaine-e pinephrine (XYLOCAINE W/EPINEPHRI NE) 1 %-1:200,000 30 mL 12-03 17:44: 00 12-03 19:21 :04 No PRN, Starting on Thu12/04/23 at 1244, [facility]op [facility] sodium chloride 0.9 % irrigation solution 12-03 17:28: 00 12-03 19:21 :04 No PRN, Starting on Thu12/04/23 at 1228, Until Thu12/04/23 at 1421, Intra-op [facility] ceFAZolin (ANCEF) injection 12-03 17:10: 00 12-03 18:54 :52 No Intravenou s, ONCE INTRA PROCEDURE, Starting on Thu12/04/23 at 1210, Until Thu12/04/23 at 1354, MAK, Intra-op [facility] rocuronium (ZEMURON) injection 12-03 17:02: 00 12-03 18:54 :52 No IV Push, ONCE INTRA PROCEDURE, Starting on Thu12/04/23 at 1202, Until Thu12/04/23 at 1354, Routine, Intra-op [facility] propofoL IV infusion 12-03 17:02: 00 12-03 18:54 :52 No Intravenou s, ONCE INTRA PROCEDURE, Starting on Thu12/04/23 at 1202, Until Thu12/04/23 at 1354, Routine, Intra-op [facility] lidocaine 1% (XYLOCAINE) 100 mg/10 mL (1 %) injection 12-03 17:02: 00 12-03 18:54 :52 No Intravenou s, ONCE INTRA PROCEDURE, Starting on Thu12/04/23 at 1202, Until Thu12/04/23 at 1354, Routine, Intra-op [facility] FENTanyl (PF) (SUBLIMAZE) injection 12-03 17:02: 00 12-03 18:54 :52 No Intravenou s, ONCE INTRA PROCEDURE, Starting on Thu12/04/23 at 1202, Until Thu12/04/23 at 1354, Routine, Intra-op [facility] lactated ringers IV infusion 12-03 16:55: 00 12-03 18:54 :52 No Intravenou s, CONTINUOUS PRN, Starting on Thu12/04/23 at 1155, Until Thu12/04/23 at 1354, Routine, Intra-op [facility] lactated ringers IV infusion 1,000 mL 12-03 15:00: 00 12-03 15:44 :00 No 1000mL at 42 mL/hr, 1,000 mL, IV Infusion, ONCE, 1 dose, On Thu12/04/23 at 1000, Routine, DSU Pre-op [facility] HYDROcodone -acetaminop hen 5-325 mg tablet 12-03 00:00: 00 12-11 04:59 :00 Yes [id number] 1{tbl} Take 1 tablet by mouth every 6 (six) hours as needed for Pain (scale 7-10) for up to 7 days. Indication s: acute pain [facility] cefTRIAXone (ROCEPHIN) 1,000 mg in NaCl 0.9% (NS) 100 mL MINI-BAG 11-14 06:45: 00 11-14 08:05 :00 No 1000mg 1,000 mg, IV Piggyback, ONCE, 1 dose, On Thu11/15/23 at 0145, Administer over 30 Minutes, 100 mL, Reason for Anti-Infec tive: Documented Infection, Documented Infection Site: Urine, Duration of Therapy: Once (ED) [facility] ondansetron 4 mg tablet 11-14 00:00: 00 12-20 00:00 :00 No [id number] 4mg Take 1 tablet by mouth every 8 (eight) hours. [facility] cephALEXin 500 mg capsule 11-14 00:00: 00 11-22 04:59 :00 Yes [id number] 1000mg Take 2 capsules by mouth in the morning and 2 capsules in the evening. Do all this for 7 days. [facility] Nitrofurant oin&Nit. Macrocryst 100 mg capsule 11-03 00:00: 00 11-14 00:00 :00 No 100mg Take 1 capsule by mouth every 12 (twelve) hours. [facility] proMETHazin e 25 mg tablet 10-28 00:00: 00 Yes [id number] 25mg Take 1 tablet by mouth every 6 (six) hours as needed for Nausea and Vomiting (N/V). [facility] PNV 67-iron ps-folate no.1-dha (VITAFOL ULTRA) 29 mg iron- 1 mg-200 mg Cap 10-28 00:00: 00 Yes [id number] 1{each} Take 1 Each by mouth in the morning. [facility] HYDROcodone -acetaminop hen (NORCO 5) 5-325 mg tablet 1 tablet 05-14 12:46: 22 Yes 1{tbl} 1 tablet, Oral, Q6HPRN, Starting on Thu05/15/23 at 0646, Until Discontinu ed, Routine, Pain (scale 7-10) [facility] ibuprofen (IBU) tablet 600 mg 05-14 12:46: 22 Yes 600mg 600 mg, Oral, Q6HPRN, Starting on Thu05/15/23 at 0646, Until Discontinu ed, Routine, Pain (scale 4-6) [facility] acetaminoph en (TYLENOL) tablet 650 mg 05-14 12:46: 22 Yes 650mg 650 mg, Oral, Q6HPRN, Starting on Thu05/15/23 at 0646, Until Discontinu ed, Routine, Pain (scale 1-3) [facility] diphenhydrA MINE (BENADRYL) tablet 25 mg 05-14 12:46: 22 Yes 25mg 25 mg, Oral, Q6HPRN, Starting on Thu05/15/23 at 0646, Until Discontinu ed, Routine, Sleep, Itching [facility] ondansetron (ZOFRAN (PF)) injection 4 mg 05-14 12:46: 22 Yes 4mg 4 mg, Slow IV Push, Q8HPRN, Starting on Thu05/15/23 at 0646, Until Discontinu ed, Routine, Nausea and Vomiting (N/V) [facility] simethicone (GAS RELIEF (SIMETHICON E)) chewable tablet 160 mg 05-14 12:46: 22 Yes 160mg 160 mg, Oral, PC+HSPRN, Starting on Thu05/15/23 at 0646, Until Discontinu ed, Routine, Gas [facility] docusate (COLACE) capsule 200 mg 05-14 12:46: 22 Yes 200mg 200 mg, Oral, QDAILYPRN, Starting on Thu05/15/23 at 0646, Until Discontinu ed, Routine, Constipati on [facility] magnesium hydroxide (MILK OF MAGNESIA) 400 mg/5 mL suspension 30 mL 05-14 12:46: 22 Yes 30mL 30 mL, Oral, QDAILYPRN, Starting on Thu05/15/23 at 0646, Until Discontinu ed, Routine, Constipati on [facility] benzocaine- menthol (DERMOPLAST ) 20-0.5 % topical spray 05-14 12:46: 22 Yes Topical, PRN, Starting on Thu05/15/23 at 0646, Until Discontinu ed, Routine, Perineum discomfort [facility] ibuprofen (IBU) tablet 600 mg 05-14 12:18: 54 Yes 600mg 600 mg, Oral, Q6HPRN, Starting on Thu05/15/23 at 0618, Until Discontinu ed, Routine, Pain (scale 1-3) [facility] proMETHazin e (PHENERGAN) 25 mg in NS 50 mL IV piggyback (CNR) 05-14 10:01: 48 05-14 10:01 :00 No 25mg 25 mg, IV Piggyback, at 200 mL/hr Administer over 15 Minutes, ONCE PRN, 1 dose, Starting on Thu05/15/23 at 0401, Until Thu05/15/23 at 0401, Routine, with morphine [facility] morpHINE (2 mg/mL) injection 6 mg 05-14 10:01: 41 05-14 09:37 :00 No 6mg 6 mg, Slow IV Push, ONCE PRN, 1 dose, Starting on Thu05/15/23 at 0401, Until Thu05/15/23 at 2359, Routine, Pain (scale 4-6) [facility] miSOPROStoL (CYTOTEC) tablet 200 mcg 05-14 10:00: 00 05-14 09:49 :00 No 200ug 200 mcg, Oral, Q4H, 1 dose, First dose (after last modificati on) on Thu05/15/23 at 0400, Routine [facility] oxytocin (PITOCIN) 30 units in NS 500 mL IV infusion 05-14 08:48: 52 05-14 11:51 :00 No 600mL/h 600 mL/hr, IV Infusion, PRN, PPH, Starting on Thu05/15/23 at 0248, For 1 dose
As instructed by physician at bedside.<b r> [facility] sodium citrate-cit denis acid (BICITRA) 500-334 mg/5 mL solution 30 mL 05-14 08:48: 52 05-14 11:42 :00 No 30mL 30 mL, Oral, PRE-PROCED URE ONCE, 1 dose, Starting on Thu05/15/23 at 0248, Until Discontinu ed, Routine, Surgery/Pr ocedure [facility] lactated ringers IV infusion 1,000 mL 05-14 08:48: 52 05-14 12:46 :44 No 1000mL at 1-125 mL/hr, 1,000 mL, IV Infusion, TITRATE, Starting on Thu05/15/23 at 0248, Until Thu05/15/23 at 0646, Routine [facility] vitamin w/FA tablet 05-14 00:00: 00 10-28 00:00 :00 No [id number] 1{tbl} Take 1 tablet by mouth in the morning. [facility] docusate 100 mg capsule 05-14 00:00: 00 10-28 00:00 :00 No [id number] 200mg Take 2 capsules by mouth once daily as needed for Constipati on. [facility] ferrous sulfate 325 mg (65 mg iron) tablet 05-14 00:00: 00 10-28 00:00 :00 No [id number] 325mg Take 1 tablet by mouth in the morning. [facility] ibuprofen 600 mg tablet 05-14 00:00: 00 10-28 00:00 :00 No [id number] 600mg Take 1 tablet by mouth every 6 (six) hours as needed (Pain). Take with food or milk. [facility] diphenhydrA MINE 25 mg tablet 05-14 00:00: 00 10-28 00:00 :00 No [id number] 25mg Take 1 tablet by mouth at bedtime as needed for Sleep. [facility] melatonin 3 mg Cap 05-14 00:00: 00 10-28 00:00 :00 No [id number] 3mg Take 3 mg by mouth at bedtime. [facility] Nitrofurant oin&Nit. Macrocryst (MACROBID) 100 mg capsule 04-26 00:00: 00 05-04 05:59 :00 No [id number] 100mg Take 1 capsule by mouth in the morning and 1 capsule in the evening. Do all this for 7 days. [facility] amoxicillin 500 mg tablet 03-26 00:00: 00 Yes 1mg Rony Stevens Immunizations Ordered Immunization Name Filled Immunization Name Date Status Comments Source Rho (d) Immune Globulin 2023-05-15 00:00:00 Completed [facility] Rho (d) Immune Globulin 2023-05-15 00:00:00 Completed [facility] Rho (d) Immune Globulin 2023-05-15 00:00:00 Completed [facility] Rho (d) Immune Globulin 2023-05-15 00:00:00 Completed [facility] Rho (d) Immune Globulin 2023-05-15 00:00:00 Completed [facility] Rho (d) Immune Globulin 2023-05-15 00:00:00 Completed [facility] Rho (d) Immune Globulin Unknown Completed [facility] Rho (d) Immune Globulin Unknown Completed [facility] Rho (d) Immune Globulin Unknown Completed [facility] Rho (d) Immune Globulin Unknown Completed [facility] Rho (d) Immune Globulin Unknown Completed [facility] Rho (d) Immune Globulin Unknown Completed [facility] Rho (d) Immune Globulin Unknown Completed [facility] Rho (d) Immune Globulin Unknown Completed [facility] Rho (d) Immune Globulin Unknown Completed [facility] Rho (d) Immune Globulin Unknown Completed [facility] Rho (d) Immune Globulin Unknown Completed [facility] Rho (d) Immune Globulin Unknown Completed [facility] Rho (d) Immune Globulin Unknown Completed [facility] Rho (d) Immune Globulin Unknown Completed [facility] Rho (d) Immune Globulin Unknown Completed [facility] Vital Signs Vital Name Observation Time Observation Value Comments S ource Systolic blood pressure 2024-01-06 14:08:00 107 mm[Hg] [facility] Diastolic blood pressure 2024-01-06 14:08:00 67 mm[Hg] [facility] Heart rate 2024-01-06 14:08:00 75 /min [facility] Body temperature 2024-01-06 14:08:00 36.67 Miriam [facility] Respiratory rate 2024-01-06 14:08:00 17 /min [facility] Body height 2024-01-06 14:08:00 162.6 cm [facility] Body weight 2024-01-06 14:08:00 75.66 kg [facility] BMI 2024-01-06 14:08:00 28.63 kg/m2 [facility] Heart rate 2023-12-29 02:45:00 68 /min [facility] Oxygen saturation in Arterial blood by Pulse oximetry 2023-12-29 02:45:00 99 /min [facility] Systolic blood pressure 2023-12-29 02:30:00 93 mm[Hg] [facility] Diastolic blood pressure 2023-12-29 02:30:00 51 mm[Hg] [facility] Body temperature 2023-12-29 01:20:00 37 Miriam [facility] Respiratory rate 2023-12-29 01:20:00 18 /min [facility] Body height 2023-12-29 01:20:00 162.6 cm [facility] Body weight 2023-12-29 01:20:00 73.936 [facility] 2023-12-29 01:20:00 27.98 kg/m2 [facility] Systolic blood pressure 2023-12-23 19:28:00 118 mm[Hg] [facility] Diastolic blood pressure 2023-12-23 19:28:00 57 mm[Hg] [facility] Heart rate 2023-12-23 19:28:00 69 /min [facility] Body temperature 2023-12-23 19:28:00 36.5 Miriam [facility] Respiratory rate 2023-12-23 19:28:00 18 /min [facility] Body height 2023-12-23 19:28:00 162.6 cm [facility] Body weight 2023-12-23 19:28:00 73.965 kg [facility] BMI 2023-12-23 19:28:00 27.99 kg/m2 [facility] Systolic blood pressure 2023-12-21 19:13:00 105 mm[Hg] [facility] Diastolic blood pressure 2023-12-21 19:13:00 65 mm[Hg] [facility] Heart rate 2023-12-21 19:13:00 92 /min [facility] Respiratory rate 2023-12-21 19:13:00 20 /min [facility] Body height 2023-12-21 19:13:00 162.6 cm [facility] Body weight 2023-12-21 19:13:00 72.576 kg [facility] BMI 2023-12-21 19:13:00 27.46 kg/m2 [facility] Oxygen saturation in Arterial blood by Pulse oximetry 2023-12-21 19:13:00 97 /min [facility] Systolic blood pressure 2023-12-18 21:36:00 129 mm[Hg] [facility] Diastolic blood pressure 2023-12-18 21:36:00 73 mm[Hg] [facility] Heart rate 2023-12-18 21:36:00 78 /min [facility] Body temperature 2023-12-18 21:36:00 36.56 Miriam [facility] Respiratory rate 2023-12-18 21:36:00 16 /min [facility] Body height 2023-12-18 21:36:00 162.6 cm [facility] Body weight 2023-12-18 21:36:00 72.576 kg [facility] BMI 2023-12-18 21:36:00 27.46 kg/m2 [facility] Oxygen saturation in Arterial blood by Pulse oximetry 2023-12-18 21:36:00 97 /min [facility] Systolic blood pressure 2023-12-09 13:52:00 111 mm[Hg] [facility] Diastolic blood pressure 2023-12-09 13:52:00 67 mm[Hg] [facility] Heart rate 2023-12-09 13:52:00 81 /min [facility] Body temperature 2023-12-09 13:52:00 36.28 Miriam [facility] Respiratory rate 2023-12-09 13:52:00 18 /min [facility] Body height 2023-12-09 13:52:00 162.6 cm [facility] Body weight 2023-12-09 13:52:00 72.984 kg [facility] BMI 2023-12-09 13:52:00 27.62 kg/m2 [facility] Systolic blood pressure 2023-12-05 13:45:00 103 mm[Hg] [facility] Diastolic blood pressure 2023-12-05 13:45:00 47 mm[Hg] [facility] Heart rate 2023-12-05 13:45:00 60 /min [facility] Body temperature 2023-12-05 13:45:00 36.78 Miriam [facility] Respiratory rate 2023-12-05 13:45:00 18 /min [facility] Oxygen saturation in Arterial blood by Pulse oximetry 2023-12-05 13:45:00 100 /min [facility] Body height 2023-12-04 15:28:00 162.6 cm [facility] Body weight 2023-12-04 15:28:00 72.576 kg [facility] BMI 2023-12-04 15:28:00 27.46 kg/m2 [facility] Systolic blood pressure 2023-12-04 19:05:00 122 mm[Hg] [facility] Diastolic blood pressure 2023-12-04 19:05:00 90 mm[Hg] [facility] Heart rate 2023-12-04 19:05:00 135 /min [facility] Respiratory rate 2023-12-04 19:05:00 22 /min [facility] Oxygen saturation in Arterial blood by Pulse oximetry 2023-12-04 19:05:00 97 /min [facility] Body temperature 2023-12-04 18:57:00 36.39 Miriam [facility] Body height 2023-12-04 15:28:00 162.6 cm [facility] Body weight 2023-12-04 15:28:00 72.576 kg [facility] BMI 2023-12-04 15:28:00 27.46 kg/m2 [facility] Systolic blood pressure 2023-12-02 18:48:00 117 mm[Hg] [facility] Diastolic blood pressure 2023-12-02 18:48:00 67 mm[Hg] [facility] Heart rate 2023-12-02 18:48:00 76 /min [facility] Body temperature 2023-12-02 18:48:00 36.78 Miriam [facility] Respiratory rate 2023-12-02 18:48:00 18 /min [facility] Body height 2023-12-02 18:48:00 162.6 cm [facility] Body weight 2023-12-02 18:48:00 73.982 kg [facility] BMI 2023-12-02 18:48:00 28.00 kg/m2 [facility] Oxygen saturation in Arterial blood by Pulse oximetry 2023-12-02 18:48:00 99 /min [facility] Body height 2023-12-01 14:25:00 162.6 cm [facility] Body weight 2023-12-01 14:25:00 72.576 kg [facility] BMI 2023-12-01 14:25:00 27.45 kg/m2 [facility] Systolic blood pressure 2023-12-01 14:00:00 104 mm[Hg] [facility] Diastolic blood pressure 2023-12-01 14:00:00 60 mm[Hg] [facility] Heart rate 2023-12-01 14:00:00 56 /min [facility] Body temperature 2023-12-01 14:00:00 36.89 Miriam [facility] Respiratory rate 2023-12-01 14:00:00 18 /min [facility] Oxygen saturation in Arterial blood by Pulse oximetry 2023-12-01 14:00:00 100 /min [facility] Systolic blood pressure 2023-11-26 19:02:00 116 mm[Hg] [facility] Diastolic blood pressure 2023-11-26 19:02:00 70 mm[Hg] [facility] Heart rate 2023-11-26 19:02:00 93 /min [facility] Body temperature 2023-11-26 19:02:00 37 Miriam [facility] Respiratory rate 2023-11-26 19:02:00 16 /min [facility] Body height 2023-11-26 19:02:00 162.6 cm [facility] Body weight 2023-11-26 19:02:00 72.122 kg [facility] BMI 2023-11-26 19:02:00 27.29 kg/m2 [facility] Oxygen saturation in Arterial blood by Pulse oximetry 2023-11-26 19:02:00 95 /min [facility] Systolic blood pressure 2023-11-25 19:26:00 114 mm[Hg] [facility] Diastolic blood pressure 2023-11-25 19:26:00 59 mm[Hg] [facility] Heart rate 2023-11-25 19:26:00 70 /min [facility] Body temperature 2023-11-25 19:26:00 35.33 Miriam [facility] Body height 2023-11-25 19:26:00 162.6 cm [facility] Body weight 2023-11-25 19:26:00 72.476 kg [facility] BMI 2023-11-25 19:26:00 27.43 kg/m2 [facility] Systolic blood pressure 2023-11-15 08:00:00 102 mm[Hg] [facility] Diastolic blood pressure 2023-11-15 08:00:00 66 mm[Hg] [facility] Heart rate 2023-11-15 08:00:00 80 /min [facility] Body temperature 2023-11-15 08:00:00 36.72 Miriam [facility] Respiratory rate 2023-11-15 08:00:00 18 /min [facility] Oxygen saturation in Arterial blood by Pulse oximetry 2023-11-15 08:00:00 99 /min [facility] Body height 2023-11-15 04:18:00 162.6 cm [facility] Body weight 2023-11-15 04:18:00 73.483 kg [facility] BMI 2023-11-15 04:18:00 27.81 kg/m2 [facility] Systolic blood pressure 2023-11-11 13:17:00 114 mm[Hg] [facility] Diastolic blood pressure 2023-11-11 13:17:00 68 mm[Hg] [facility] Heart rate 2023-11-11 13:17:00 91 /min [facility] Body temperature 2023-11-11 13:17:00 37 Miriam [facility] Respiratory rate 2023-11-11 13:17:00 18 /min [facility] Body weight 2023-11-11 13:17:00 73.528 kg [facility] Systolic blood pressure 2023-10-29 13:57:00 115 mm[Hg] [facility] Diastolic blood pressure 2023-10-29 13:57:00 68 mm[Hg] [facility] Heart rate 2023-10-29 13:57:00 64 /min [facility] Body temperature 2023-10-29 13:57:00 36.83 Miriam [facility] Respiratory rate 2023-10-29 13:57:00 19 /min [facility] Body height 2023-10-29 13:57:00 162.6 cm [facility] Body weight 2023-10-29 13:57:00 73.846 kg [facility] BMI 2023-10-29 13:57:00 27.94 kg/m2 [facility] Systolic blood pressure 2023-06-05 18:23:00 129 mm[Hg] [facility] Diastolic blood pressure 2023-06-05 18:23:00 73 mm[Hg] [facility] Heart rate 2023-06-05 18:23:00 79 /min [facility] Body temperature 2023-06-05 18:23:00 36.17 Miriam [facility] Respiratory rate 2023-06-05 18:23:00 18 /min [facility] Body height 2023-06-05 18:23:00 162.6 cm [facility] Body weight 2023-06-05 18:23:00 73.573 kg [facility] BMI 2023-06-05 18:23:00 27.84 kg/m2 [facility] Systolic blood pressure 2023-05-15 23:30:00 122 mm[Hg] [facility] Diastolic blood pressure 2023-05-15 23:30:00 58 mm[Hg] [facility] Heart rate 2023-05-15 23:30:00 70 /min [facility] Body temperature 2023-05-15 23:30:00 37 Miriam [facility] Respiratory rate 2023-05-15 23:30:00 18 /min [facility] Oxygen saturation in Arterial blood by Pulse oximetry 2023-05-15 23:30:00 100 /min [facility] Body height 2023-05-15 08:14:00 162.6 cm [facility] Body weight 2023-05-15 08:14:00 61.236 kg [facility] BMI 2023-05-15 08:14:00 23.16 kg/m2 [facility] Systolic blood pressure 2023-04-26 20:30:00 109 mm[Hg] [facility] Diastolic blood pressure 2023-04-26 20:30:00 75 mm[Hg] [facility] Heart rate 2023-04-26 20:30:00 70 /min [facility] Body temperature 2023-04-26 20:30:00 37 Miriam [facility] Respiratory rate 2023-04-26 20:30:00 15 /min [facility] Oxygen saturation in Arterial blood by Pulse oximetry 2023-04-26 20:30:00 99 /min [facility] Body height 2023-04-26 17:11:00 162.6 cm [facility] Body weight 2023-04-26 17:11:00 61.236 kg [facility] BMI 2023-04-26 17:11:00 23.17 kg/m2 [facility] Systolic blood pressure 2023-01-22 03:50:00 108 mm[Hg] [facility] Diastolic blood pressure 2023-01-22 03:50:00 78 mm[Hg] [facility] Heart rate 2023-01-22 03:50:00 59 /min [facility] Respiratory rate 2023-01-22 03:50:00 18 /min [facility] Oxygen saturation in Arterial blood by Pulse oximetry 2023-01-22 03:50:00 100 /min [facility] Body temperature 2023-01-22 01:36:00 36.78 Miriam [facility] Body weight 2023-01-22 01:36:00 56.7 kg [facility] BP Systolic 2023-11-20 15:28:00 104 mm[Hg] [facility] BP Diastolic 2023-11-20 15:28:00 65 mm[Hg] [place] phen F Rodney Weight Measured 2023-11-20 15:28:00 159.60 pounds Rony Stevens Height Measured 2023-11-20 15:28:00 63.25 inches Rony F Rodney Body Temperature 2023-11-20 15:28:00 98.30 degrees Rony F Rodney Heart Rate 2023-11-20 15:28:00 69.00 /min Rachel en F Rodney Respiratory Rate 2023-11-20 15:28:00 18.00 /min Rony F Rodney BP Systolic 2018-03-26 14:37:00 113 mm[Hg] Step hen F Rodney BP Diastolic 2018-03-26 14:37:00 69 mm[Hg] [place] phen F Rodney Weight Measured 2018-03-26 14:37:00 180.60 pounds Rony Stevens Height Measured 2018-03-26 14:37:00 63.25 inches Rony Stevens Body Temperature 2018-03-26 14:37:00 97.60 degrees Rony Stevens Heart Rate 2018-03-26 14:37:00 60.00 /min Rachel en F Rodney Respiratory Rate 2018-03-26 14:37:00 Rony Stevens Procedures Procedure Date / Time Performed Performing Clinician Source SECOND AND THIRD TRIMESTER ULTRASOUND 2024-01-14 18:09:00 Fartun Alvarado [facility] SECOND AND THIRD TRIMESTER ULTRASOUND 2024-01-06 18:08:00 Fartun Alvarado [facility] POCT URINALYSIS 2024-01-06 14:54:00 Kirt Park [facility] URINALYSIS 2023-12-29 01:41:00 Judy Hilario [facility] ADC CLC OR LCC ONLY - WET PREP 2023-12-29 01:41:00 Judy Hilario [facility] POCT URINALYSIS 2023-12-23 19:30:00 Kirt Park [facility] SECOND AND THIRD TRIMESTER ULTRASOUND 2023-12-22 16:38:00 Fartun Alvarado [facility] POCT URINALYSIS 2023-12-09 13:56:00 Kirt Park [facility] [id number] - [place] LAPAROSCOPY SURG CHOLECYSTECTOMY 2023-12-04 16:40:00 Shreya Lee [facility] [id number] - [place] LAPS SURG CHOLECYSTECTOMY W/CHOLANGIOGRAPHY 2023-12-04 16:40:00 Shreya Lee [facility] [id number] - [place] LAPS SURG CHOLECSTC W/EXPL COMMON DUCT 2023-12-04 16:40:00 Shreya Lee [facility] POCT URINALYSIS W/O SPECIFIC GRAVITY 2023-11-25 19:25:00 Madeline Winn [facility] SECOND AND THIRD TRIMESTER ULTRASOUND 2023-11-25 16:23:00 Fartun Alvarado [facility] LIPASE 2023-11-15 06:04:00 Chavez Abreu Un [facility] COMP. METABOLIC PANEL (53780) 2023-11-15 06:04:00 Chavez Abreu [facility] CBC WITH DIFF 2023-11-15 06:04:00 Chavez Abreu [facility] URINALYSIS 2023-11-15 06:04:00 Chavez Abreu Un [facility] POCT URINALYSIS 2023-11-11 13:30:00 Kirt Park [facility] POCT URINALYSIS W/O SPECIFIC GRAVITY 2023-10-29 13:56:00 Kirt Park [facility] POCT TEST 2023-10-29 13:55:00 Dinesh Park [facility] HB HEMOGLOBIN STAINS 2023-05-15 14:43:00 Yari Serna [facility] ABORH CONFIRMATION (LAB ONLY) 2023-05-15 09:55:00 Concha [facility] RHO (D) IMMUNE GLOBULIN 2023-05-15 09:32:00 Nargis Kern [facility] HIV 1/2 AG-AB WITH REFLEX 2023-05-15 09:32:00 Concha [facility] CBC WITH DIFF 2023-05-15 09:32:00 Hodnett, [facility] HEPATITIS B SURFACE ANTIGEN 2023-05-15 09:32:00 Concha [facility] RH IMMUNE GLOBULIN REQUIRED? 2023-05-15 09:32:00 Concha [facility] HB ABO GROUPING 2023-05-15 09:32:00 Paresh Kern [facility] US PELVIS > 14 WEEKS 2023-05-15 09:22:40 Concha [facility] ASSIGNMENT OF BENEFITS 2023-04-26 18:34:15 Docto r Unassigned, [place] [facility] BASIC METABOLIC PANEL (NA, K, CL, CO2, GLUCOSE, BUN, CREATININE, CA) 2023-04-26 18:29:00 Gennaro Velasco [facility] TOTAL BETA HCG ASSAY 2023-04-26 18:29:00 Gennaro Velasco [facility] CBC WITH DIFF 2023-04-26 18:29:00 Gennaro Velasco [facility] URINALYSIS 2023-04-26 18:29:00 Gennaro Velasco [facility] POCT TEST 2023-04-26 18:29:00 Gennaro Velasco [facility] NOTICE OF PRIVACY PRACTICES 2023-04-26 17:04:19 Doctor Unassigned, [place] [facility] CONSENT/REFUSAL FOR DIAGNOSIS AND TREATMENT 2023-04-26 17:03:50 Doctor Unassigned, [place] [facility] US OVARY TORSION 2023-01-22 04:45:00 Rosalba Batista [facility] POCT TEST 2023-01-22 03:44:00 Joan Batista [facility] URINALYSIS 2023-01-22 03:41:00 Rosalba [facility] LIPASE 2023-01-22 03:22:00 Rosalba [facility]ista [facility] COMP. METABOLIC PANEL (85329) 2023-01-22 03:22:00 Rosalba Batista [facility] CBC WITH DIFF 2023-01-22 03:22:00 Rosalba Batista [facility] CONSENT/REFUSAL FOR DIAGNOSIS AND TREATMENT 2023-01-22 01:09:11 Doctor Unassigned, [place] [facility] Encounters Start Date/Time End Date/Time Encounter Type Admission Type Attending [facility] Care Facility Care Department Encounter ID Source 2023-12-01 13:23:24 Outpatient P [facility] [id number] [facility] 2024-02-08 15:30:00 2024-02-08 15:30:00 Outpatient R [facility] [id number] [facility] 2024-02-03 10:00:00 2024-02-03 10:00:00 Outpatient R [facility] [id number] [facility] 2024-02-02 15:00:00 2024-02-02 15:00:[address] [facility] [id number] [facility] 2024-01-29 00:00:00 2024-01-29 12:07:53 Abstract Fartun Alvarado [facility] HYDROLOGY TECHNICIAN [facility] MATERNAL & CHILD [facility] .840.114 350.1.13.10 4.2.7.2.686 [id number] [facility] 2024-01-28 15:00:00 2024-01-28 15:10:41 Outpatient P [facility] [id number] [facility] 2023-12-13 00:00:00 2024-01-16 18:24:40 Patient Secure Msg Shreya Lee [facility] .840.114 350.1.13.10 4.2.7.2.686 [id number] [facility] 2023-12-13 00:00:00 2024-01-16 18:24:33 Patient Secure Msg Doctor Unassigned, [place] Doctor Unassigned, [place] [facility] ([facility] .840.114 350.1.13.10 4.2.7.2.686 [id number] [facility] 2024-01-14 11:00:00 2024-01-14 12:09:50 Outpatient R [facility] [id number] [facility] 2024-01-14 11:00:00 2024-01-14 12:09:50 Solutions [employer] Security Visit Ultrasound, Kirt Licona [facility] HYDROLOGY TECHNICIAN [facility] MATERNAL & CHILD [facility] ..840.114 350.1.13.10 4.2.7.2.686 [id number] [facility] 2024-01-11 00:00:00 2024-01-11 10:49:59 Abstract Fartun Alvarado [facility] HYDROLOGY TECHNICIAN [facility] MATERNAL & CHILD [facility] ..840.114 350.1.13.10 4.2.7.2.686 [id number] [facility] 2024-01-06 11:00:00 2024-01-06 17:20:14 Outpatient R ASHLY LEMUS [facility] [id number] [facility] 2024-01-06 11:00:00 2024-01-06 17:20:14 [employer] Visit Ultrasound, Ashly Ordaz [facility] HYDROLOGY TECHNICIAN [facility] & CHILD [facility] ..840.114 350.1.13.10 4.2.7.2.686 [id number] [facility] 2024-01-06 09:15:00 2024-01-06 09:57:21 Outpatient R [facility] [id number] [facility] 2024-01-06 09:15:00 2024-01-06 09:57:21 Routine Visit Kirt Park [facility] HYDROLOGY TECHNICIAN [facility] & CHILD [facility] .840.114 350.1.13.10 4.2.7.2.686 [id number] [facility] 2023-11-26 00:00:00 2024-01-02 18:26:57 Patient Secure Shreya Stephens [facility] ..114 350.1.13.10 4.2.7.2.686 [id number] [facility] 2023-12-31 00:00:00 2023-12-31 15:18:54 Abstract Fartun Alvarado [facility] HYDROLOGY TECHNICIAN [facility] & CHILD [facility] .114 350.1.13.10 4.2.7.2.686 [id number] [facility] 2023-12-29 15:30:00 2023-12-29 15:30:[address] [facility] [id number] [facility] 2023-12-28 20:06:00 2023-12-28 22:00:00 Outpatient X JUDY HILARIO VIEN [facility] [id number] [facility] 2023-12-28 20:06:00 2023-12-28 22:00:00 Emergency Judy Hilario [facility] .114 350.1.13.10 4.2.7.2.686 [id number] [facility] 2023-12-23 09:45:00 2023-12-23 14:56:12 Outpatient R MADELINE WINN KRISTIN [facility] [id number] [facility] 2023-12-23 09:45:00 2023-12-23 14:56:12 Routine Visit Risk, Ang-Rmchp-N p/High Madeline Winn Risk, Ang-Rmchp-N p/High [facility] HYDROLOGY TECHNICIAN [facility] & CHILD [facility] 1.840.114 350.1.13.10 4.2.7.2.686 [id number] [facility] 2023-12-22 11:30:00 2023-12-22 11:44:37 Outpatient R RENETTA GUEVARA RENETTA SOTO [facility] [id number] [facility] 2023-12-22 11:30:00 2023-12-22 11:44:37 [employer] Visit 1, [facility] Renetta Guevara [facility] HYDROLOGY TECHNICIAN [facility] MATERNAL & CHILD [facility] 1.2.840.114 350.1.13.10 4.2.7.2.686 [id number] [facility] 2023-12-21 14:00:00 2023-12-21 14:42:42 Outpatient R SHREYA LEE [facility] [id number] [facility] 2023-12-21 14:00:00 2023-12-21 14:42:42 Office Visit Shreya Lee [facility] 1..840.114 350.1.13.10 4.2.7.2.686 [id number] [facility] 2023-12-18 16:38:00 2023-12-18 17:16:00 Emergency X PATSY QUINONES SANDRA [facility] ERT [id number] [facility] 2023-12-18 16:38:00 2023-12-18 17:16:00 Emergency Patsy Quinones [facility] 1..840.114 350.1.13.10 4.2.7.2.686 [id number] [facility] 2023-12-09 08:45:00 2023-12-09 09:59:04 Outpatient R FARTUN ALVARADO [facility] [id number] [facility] 2023-12-09 08:45:00 2023-12-09 09:59:04 Routine Visit Risk, Ang-Rmchp-N p/High Fartun Alvarado Risk, Ang-Rmchp-N p/High [facility] HYDROLOGY TECHNICIAN [facility] CHILD [facility] 1.2.840.114 350.1.13.10 4.2.7.2.686 [id number] [facility] 2023-11-04 00:00:00 2023-12-05 18:20:27 Patient Secure Kirt Hyman [facility] HYDROLOGY TECHNICIAN [facility] CHILD [facility] 1.2.840.114 350.1.13.10 4.2.7.2.686 [id number] [facility] 2023-12-04 09:57:00 2023-12-05 10:15:00 Outpatient R SHREYA LEE [facility] ROHIT [id number] [facility] 2023-12-04 09:57:00 2023-12-05 10:15:00 Hospital Encounter Shreya Lee [facility] 1.2.840.114 350.1.13.10 4.2.7.2.686 [id number] [facility] 2023-12-04 11:30:00 2023-12-04 14:08:00 Surgery Shreya Lee [facility] 1.2.840.114 350.1.13.10 4.2.7.2.686 [id number] [facility] 2023-12-04 11:55:00 2023-12-04 13:54:00 Anesthesia Event Jeffery Lopez Prameela [facility] 1.2.840.114 350.1.13.10 4.2.7.2.686 [id number] [facility] 2023-12-02 00:00:00 2023-12-02 14:59:10 [facility] 1.2.840.114 350.1.13.10 4.2.7.2.686 [id number] [facility] 2023-12-02 13:00:00 2023-12-02 14:56:16 Outpatient R SANGEETA BURROUGHS [facility] [id number] [facility] 2023-12-02 13:00:00 2023-12-02 14:56:16 Office Visit Sangeeta Burroughs [facility] 1.2.840.114 350.1.13.10 4.2.7.2.686 [id number] [facility] 2023-12-02 00:00:00 2023-12-02 13:59:22 [facility] 1.2.840.114 350.1.13.10 4.2.7.2.686 [id number] [facility] 2023-12-01 08:29:00 2023-12-01 13:23:00 Outpatient P RENETTA GUEVARA KARIN FOX, KARIN [facility] [id number] [facility] 2023-12-01 08:29:00 2023-12-01 13:23:00 Hospital Encounter [facility] 1.2.840.114 350.1.13.10 4.2.7.2.686 [id number] [facility] 2023-11-26 00:00:00 2023-11-26 16:27:23 Abstract Fartun Alvarado [facility] HYDROLOGY TECHNICIAN [facility] MATERNAL & CHILD [facility] 1.2.840.114 350.1.13.10 4.2.7.2.686 [id number] [facility] 2023-11-26 00:00:00 2023-11-26 15:36:53 Telephone Madeline Winn [facility] HYDROLOGY TECHNICIAN [facility] CHILD [facility] 1..840.114 350.1.13.10 4.2.7.2.686 [id number] [facility] 2023-11-26 13:45:00 2023-11-26 15:06:03 Outpatient R SHREYA LEE [facility] [id number] [facility] 2023-11-26 13:45:00 2023-11-26 15:06:03 Office Visit Shreya Lee [facility] 1..840.114 350.1.13.10 4.2.7.2.686 [id number] [facility] 2023-11-25 14:30:00 2023-11-25 14:47:35 Routine Visit Risk, Ang-Rmchp-N p/High Molly Lemus Risk, Ang-Rmchp-N p/High [facility] HYDROLOGY TECHNICIAN [facility] 1..840.114 350.1.13.10 4.2.7.2.686 [id number] [facility] 2023-11-25 11:00:00 2023-11-25 11:22:47 Outpatient R MOLLY LEMUS [facility] [id number] [facility] 2023-11-25 11:00:00 2023-11-25 11:22:47 [employer] Visit 2, [facility] Room Molly Lemus [facility] HYDROLOGY TECHNICIAN [facility] MATERNAL & CHILD [facility] 1..840.114 [id number] [facility] 2023-11-20 15:21:13 2023-11-20 15:21:13 Outpatient [facility] DEVAN [id number] Rony Stevens 2023-11-20 00:00:00 2023-11-20 00:00:00 Outpatient Visit [facility] [id number] Rony Stevens 2023-11-14 23:19:00 2023-11-15 03:28:00 Emergency X CHAVEZ ABREU LOIS, CHAVEZ [facility] ERT [id number] [facility] 2023-11-14 23:19:00 2023-11-15 03:28:00 Emergency Chavez Abreu [facility] 1.0.114 350.1.13.10 4.2.7.2.686 [id number] [facility] 2023-11-11 09:30:00 2023-11-11 09:45:00 Solutions Executive Security Visit 2, Adc Lab Fartun Alvarado 2, Adc Lab [facility] 1..114 350.1.13.10 4.2.7.2.686 [id number] [facility] 2023-11-11 08:00:00 2023-11-11 09:06:54 Outpatient R FARTUN ALVARADO [facility] [id number] [facility] 2023-11-11 08:00:00 2023-11-11 09:06:54 Office Visit Risk, Ang-Rmchp-N p/High Fartun Alvarado Risk, Ang-Rmchp-N p/High [facility] HYDROLOGY TECHNICIAN [facility] 1..114 350.1.13.10 4.2.7.2.686 [id number] [facility] 2023-10-29 09:00:00 2023-10-29 10:16:26 Initial Visit [place] [facility] HYDROLOGY TECHNICIAN [facility] 1.0.114 350.1.13.10 4.2.7.2.686 [id number] [facility] 2023-06-05 13:00:00 2023-06-05 13:15:00 Routine Visit [place] Deepali [facility] HYDROLOGY TECHNICIAN [facility] 1.2.840.114 350.1.13.10 4.2.7.2.686 [id number] [facility] 2023-05-15 00:53:00 2023-05-15 19:25:00 Hospital Encounter Paresh Kern [facility] 1.20.114 350.1.13.10 4.2.7.2.686 [id number] [facility] 2023-04-26 11:15:00 2023-04-26 14:40:00 Emergency GENNARO ARIAS JULIO [facility] ERT [id number] [facility] 2023-04-26 11:15:00 2023-04-26 14:40:00 Emergency Gennaro Velasco [facility] 1.0.114 350.1.13.10 4.2.7.2.686 [id number] [facility] 2023-01-21 19:37:00 2023-01-21 23:59:00 Emergency Rosalba Batista [facility] 1.20.114 350.1.13.10 4.2.7.2.686 [id number] [facility] 2023-01-21 19:37:00 2023-01-21 23:59:00 Emergency ROSALBA TANNER MATTHEW [facility] ERT [id number] [facility] 2022-12-09 00:00:00 2022-12-09 00:00:00 Telephone Racquel Augustine [facility] 1.20.114 350.1.13.10 4.2.7.2.686 [id number] [facility] 2021-09-19 03:33:00 2021-09-19 03:33:00 Outpatient KERMIT PATEL [facility] [id number] [facility] Results Test Description Test Time Test Comments Results Result Co mments Source [facility] URINALYSIS W SPECIFIC [id number] 19:30:00* Test Item Value Reference Range Interpretation Comme nts POCT U SP GRAV (test code = 3255) . 1.005-1.025 POCT PH U (test code = 3254) 5 mg/dl 5-8 POCT U LEUK EST (test code = 3263) Neg Negative - Negative POCT U NIT (test code = 3262) Neg Negative - Negati ve POCT U PROT (test code = 3259) Trace Negative - Negat gabriel POCT U GLU (test code = 3256) Nml Negative - Negati ve POCT U KETONE (test code = 3258) None Negative - Neg ative POCT U UROBILI (test code = 3260) . 0.2-1 POCT U BILI (test code = 3261) . Negative - Negat gabriel POCT U BLD (test code = 3257) Trace Negative - Negati ve POCT U COLOR (test code = 3266) . POCT U APPEAR (test code = 3267) . [facility] URINALYSIS W SPECIFIC [id number] 13:56:00* Test Item Value Reference Range Interpretation Comme nts POCT U SP GRAV (test code = 3255) . 1.005-1.025 POCT PH U (test code = 3254) 5 mg/dl 5-8 POCT U LEUK EST (test code = 3263) neg Negative - Negative POCT U NIT (test code = 3262) neg Negative - Negati ve POCT U PROT (test code = 3259) trace Negative - Negat gabriel POCT U GLU (test code = 3256) neg Negative - Negati ve POCT U KETONE (test code = 3258) neg Negative - Neg ative POCT U UROBILI (test code = 3260) . 0.2-1 POCT U BILI (test code = 3261) . Negative - Negat gabriel POCT U BLD (test code = 3257) neg Negative - Negati ve POCT U COLOR (test code = 3266) . POCT U APPEAR (test code = 3267) . [facility] w/o Specific [id number] 19:26:00* Test Item Value Reference Range Interpretation Comme nts POCT PH U (test code = 3254) 6 mg/dl 5-8 POCT U LEUK EST (test code = 3263) negative Negative - Negative POCT U NIT (test code = 3262) negative Negative - Negati ve POCT U PROT (test code = 3259) trace Negative - Negat gabriel POCT U GLU (test code = 3256) negative Negative - Negati ve POCT U KETONE (test code = 3258) negative Negative - Neg ative POCT U BLD (test code = 3257) negative Negative - Negati ve [facility] MET[facility]OLIC PANEL (53235)2023-11-15 06:47:45* Test Item Value Reference Range Interpretation Comme nts NA (test code = 3992934505) 136 mmol/L 135-145 K (test code = 4440057297) 3.8 mmol/L 3.5-5.0 CL (test code = 8685938690) 103 mmol/L 98-108 CO2 TOTAL (test code = 2070895832) 22 mmol/L 23-31 L AGAP (test code = 8760674964) 11 2-16 BUN (test code = 8280242416) 8 mg/dL 7-23 GLUCOSE (test code = 3635457709) 81 mg/dL 70-110 CREATININE (test code = 2160-0) 0.54 mg/dL 0.50-1.04 TOTAL BILI (test code = 6238426929) 0.7 mg/dL 0.1-1.1 CALCIUM (test code = 2575167786) 9.5 mg/dL 8.6-10.6 T PROTEIN (test code = 4053485153) 8.2 g/dL 6.3-8.2 ALBUMIN (test code = 4567349182) 4.5 g/dL 3.5-5.0 ALK PHOS (test code = 3001000184) 63 U/L 34-122 ALTv (test code = 1742-6) 15 U/L 5-35 AST(SGOT) (test code = 1639545423) 23 U/L 13-40 eGFR (test code = 84218-8) 135.4 mL/min/1.73m2 CKD-EPI eGFR (2020). Assuming creatinine has been stable day-to-day for at least three months, the eGFR indicates Category G1 (>= 90 mL/min/1.73 m2) Lab Interpretation (test code = 46032-9) Abnormal [facility] 06:47:45* Test Item Value Reference Range Interpretation Comme nts LIPASE (test code = 9448988711) 57 U/L 0-220 Lab Interpretation (test cod e = 65279-9) Normal [facility] WITH [id number] 06:10:02* Test Item Value Reference Range Interpretation Comme nts WBC (test code = 6690-2) 10.79 4.30-11.10 RBC (test code = 789-8) 4.63 3.93-5.25 HGB (test code = 718-7) 12.8 g/dL 11.6-15.0 HCT (test code = 4544-3) 38.2 % 35.7-45.2 MCV (test code = 787-2) 82.5 fL 80.6-95.5 MCH (test code = 785-6) 27.6 pg 25.9-32.8 MCHC (test code = 786-4) 33.5 g/dL 31.6-35.1 RDW-SD (test code = 34183-4) 45.0 fL 39.0-49.9 RDW-CV (test code = 788-0) 14.9 % 12.0-15.5 PLT (test code = 777-3) 322 166-358 MPV (test code = 78097-8) 9.3 fL 9.5-12.9 L NRBC/100 WBC (test code = 0640000490) 0.0 0.0-10.0 NRBC x10^3 (test code = 1498652059) See_Comment [Automated messa ge] The system which generated this result transmitted reference range: 10*3/?L. The reference range was not used to interpret this result as normal/abnormal. GRAN MAT (NEUT) % (test code = 770-8) 78.7 % IMM GRAN % (test code = 0220224196) 0.30 % LYMPH % (test code = 736-9) 14.6 % MONO % (test code = 5905-5) 4.4 % EOS % (test code = 713-8) 1.6 % BASO % (test code = 706-2) 0.4 % GRAN MAT x10^3(ANC) (test code = 4538027728) 8.49 10*3/uL 1.88-7.09 H IMM GRAN x10^3 (test code = 0111833925) 0.03 10*3/uL 0.00-0.06 LYMPH x10^3 (test code = 731-0) 1.58 10*3/uL 1.32-3.29 MONO x10^3 (test code = 742-7) 0.48 10*3/uL 0.33-0.92 EOS x10^3 (test code = 711-2) 0.17 10*3/uL 0.03-0.39 BASO x10^3 (test code = 704-7) 0.04 10*3/uL 0.01-0.07 Lab Interpretation (test code = 84456-5) Abnormal [facility] URINALYSIS W SPECIFIC [id number] 13:31:00* Test Item Value Reference Range Interpretation Comme nts POCT U SP GRAV (test code = 3255) * 1.005-1.025 POCT PH U (test code = 3254) 5 mg/dl 5-8 POCT U LEUK EST (test code = 3263) 1+ Negative - Negative POCT U NIT (test code = 3262) negative Negative - Negati ve POCT U PROT (test code = 3259) 1+ Negative - Negat gabriel POCT U GLU (test code = 3256) negative Negative - Negati ve POCT U KETONE (test code = 3258) negative Negative - Neg ative POCT U UROBILI (test code = 3260) * 0.2-1 POCT U BILI (test code = 3261) * Negative - Negat gabriel POCT U BLD (test code = 3257) negative Negative - Negati ve POCT U COLOR (test code = 3266) POCT U APPEAR (test code = 3267) [facility] [id number] 13:56:00* Test Item Value Reference Range Interpretation Comme nts POCT PREG (test code = 1605) Positive On board controls acceptable with C Line (test code = 3574) Yes POCT PREG LOT # (test code = 3575) POCT PREG TEST DATE ( test code = 3576) [facility] Urinalysis w/o Specific [id number] 13:56:00* Test Item Value Reference Range Interpretation [...] = 3257) 50 Negative - Negati ve [facility] SouthFetal HGB Stain/KB [id number] 16:42:00* Test Item Value Reference Range Interpretation Comme nts HGB STAIN (test code = 843) Negative RHIG REQUIRED? (test code = 1747) 1 Syringe BLEED IN MLS (test cod e = 5045) See comment 0mL [facility] IMMUNE GLOBULIN REQUIRED?2023-05-15 15:23:24* Test Item Value Reference Range Interpretation Comme nts RHIG REQUIRED? (test code = 1747) Hgb Stain Rqd. Pt was 18 weeks Performed at [facility] Laboratory Services - [facility] Blood [address] [place] [id number] Free: [phone] No. [id number] [facility] IMM[facility]E [id number] 15:23:18* Test Item Value Reference Range Interpretation Comme nts RHIG CANDIDATE? (test code = 5188) Yes- see comment A Patient is a candidate for RhIg- Patient is Rh Negative and baby is Rh Unknown.Performed at [facility] Laboratory Services - [facility] Blood [address] [place] [id number] Free: [phone] No. [id number] Lab Interpretation (test code = 15387-3) Abnormal [facility] PELVIS > 14 [id number] 14:05:57EXAM: Obstetrics ultrasound HISTORY: confirm IUFD; LMP [...] right ovary measures 2.8 x2.1 x 2.5 cm.[facility]/2 AG-AB WITH [id number] 10:37:23* Test Item Value Reference Range Interpretation Comme nts HIV Semi-quantitative (test code = 43631-4) 0.10 Negative NIKIA (test code = NIKIA) Non-reactive for HIV-1 antigen and HIV-1/HIV-2 antibodies. ?No laboratory evidence of HIV infection. ?Repeat in 2-4 weeks if acute HIV infection is suspected. [facility] SouthHepatitis B Surface [id number] 10:28:00 * Test Item Value Reference Range Interpretation Comme nts HBsAg Semi-Quantitative (nawaf t code = 5195-3) 0.05 Negative [facility] SouthABORH Confirmation (Lab Only)2023-05-15 10:01:00* Test Item Value Reference Range Interpretation Comme nts ABO & RH (test code = 20) O Negative [facility] SouthCBC WITH [id number] 09:43:18* Test Item Value Reference Range Interpretation [...] 32.9 g/dL 31.6-35.1 RDW-SD (test code = 23242-9) 43.8 fL 39.0-49.9 RDW-CV (test code = 788-0) 14.3 % 12.0-15.5 PLT (test code = 777-3) 287 166-358 MPV (test code = 72928-4) 8.8 fL 9.5-12.9 L NRBC/100 WBC (test code = 2766075140) 0.0 0.0-10.0 NRBC x10^3 (test code = 4655066255) See_Comment [Automated message] The system which generated this result transmitted reference range: 10*3/?L. The reference range was not used to interpret this result as normal/abnormal. GRAN MAT (NEUT) % (test code = 770-8) 82.2 % IMM GRAN % (test code = 7955185588) 0.30 % LYMPH % (test code = 736-9) 13.2 % MONO % (test code = 5905-5) 3.5 % EOS % (test code = 713-8) 0.5 % BASO % (test code = 706-2) 0.3 % GRAN MAT x10^3(ANC) (test code = 8318161900) 14.57 10*3/uL 1.88-7.09 H IMM GRAN x10^3 (test code = 0228371417) 0.06 10*3/uL 0.00-0.06 LYMPH x10^3 (test code = 731-0) 2.34 10*3/uL 1.32-3.29 MONO x10^3 (test code = 742-7) 0.62 10*3/uL 0.33-0.92 EOS x10^3 (test code = 711-2) 0.08 10*3/uL 0.03-0.39 BASO x10^3 (test code = 704-7) 0.05 10*3/uL 0.01-0.07 Lab Interpretation (test code = 71364-1) Abnormal [facility] SouthType and Screen - ONCE [id number] 09:37:00 * Test Item Value Reference Range Interpretation Comme nts ABO & RH (test code = 20) O NEGATIVE IAT (test code = 1185) [facility]23-[facility]26 20:28:46* Test Item Value Reference Range Interpretation Comme nts BETA HCG (test code = 1840170212) 45555.00 See_Comment [Automated CellPlya ge] The system which generated this result transmitted reference range: Non- female and male patients: <5 mIU/mL. The reference range was not used to interpret this result as normal/abnormal. NIKIA (test code = NIKIA) Gestational Age ?Range (mIU/mL) 1-10 ?Weeks ?63-95922901-73 Weeks ?45223-54661426-18 Weeks ?8993-68210218-46 Weeks ?1531-657476942 Biotin has been reported to cause a negative bias, interpret results relative to patient's use of biotin. [facility] (NA, K, CL, CO2, GLUCOSE, BUN, CREATININE, CA)2023-04-26 19:09:51* Test Item Value Reference Range Interpretation Comme nts NA (test code = 2634651395) 135 mmol/L 135-145 K (test code = 3787877536) 3.9 mmol/L 3.5-5.0 CL (test code = 1437511787) 104 mmol/L 98-108 CO2 TOTAL (test code = 6249133320) 24 mmol/L 23-31 AGAP (test code = 6897803492) 7 2-16 BUN (test code = 0741796630) 6 mg/dL 7-23 L GLUCOSE (test code = 9776496220) 74 mg/dL 70-110 CREATININE (test code = 2160-0) 0.52 mg/dL 0.50-1.04 CALCIUM (test code = 1435094282) 9.3 mg/dL 8.6-10.6 eGFR (test code = 21195-2) 137.5 mL/min/1.73m2 CKD-EPI eGFR (2020). Assuming creatinine has been stable day-to-day for at least three months, the eGFR indicates Category G1 (>= 90 mL/min/1.73 m2) Lab Interpretation (test code = 65009-7) Abnormal [facility] WITH [id number] 18:59:50* Test Item Value Reference Range Interpretation [...] 33.2 g/dL 31.6-35.1 RDW-SD (test code = 22308-2) 43.5 fL 39.0-49.9 RDW-CV (test code = 788-0) 14.0 % 12.0-15.5 PLT (test code = 777-3) 322 166-358 MPV (test code = 12192-2) 9.3 fL 9.5-12.9 L NRBC/100 WBC (test code = 0022706521) 0.0 0.0-10.0 NRBC x10^3 (test code = 1486132398) See_Comment [Automated CellPlya ge] The system which generated this result transmitted reference range: 10*3/?L. The reference range was not used to interpret this result as normal/abnormal. GRAN MAT (NEUT) % (test code = 770-8) 73.2 % IMM GRAN % (test code = 1682262181) 0.30 % LYMPH % (test code = 736-9) 21.2 % MONO % (test code = 5905-5) 4.4 % EOS % (test code = 713-8) 0.7 % BASO % (test code = 706-2) 0.2 % GRAN MAT x10^3(ANC) (test code = 5418637334) 7.16 10*3/uL 1.88-7.09 H IMM GRAN x10^3 (test code = 0847224220) 0.03 10*3/uL 0.00-0.06 LYMPH x10^3 (test code = 731-0) 2.07 10*3/uL 1.32-3.29 MONO x10^3 (test code = 742-7) 0.43 10*3/uL 0.33-0.92 EOS x10^3 (test code = 711-2) 0.07 10*3/uL 0.03-0.39 BASO x10^3 (test code = 704-7) 0.01-0.07 Lab Interpretation (test code = 45731-9) Abnormal [facility] [id number] 18:29:00* Test Item Value Reference Range Interpretation Comme nts POCT PREG (test code = 1605) Positive On board controls acceptable with C Line (test code = 3574) Yes POCT PREG LOT # (test code = 3575) [id number] POCT PREG TEST DATE ( test code = 3576) 04-13-24 Lab Interpretation (test cod e = 90060-0) Normal [facility] South[facility]. METABOLIC PANEL (88735)2023-01-22 03:49:36* Test Item Value Reference Range Interpretation Comme nts NA (test code = 3085079788) 136 mmol/L 135-145 K (test code = 9656098472) 3.9 mmol/L 3.5-5.0 CL (test code = 0444238985) 102 mmol/L 98-108 CO2 TOTAL (test code = 2164476853) 27 mmol/L 23-31 AGAP (test code = 4657226696) 7 2-16 BUN (test code = 0665093004) 13 mg/dL 7-23 GLUCOSE (test code = 3933134051) 79 mg/dL 70-110 CREATININE (test code = 2981723138) 0.64 mg/dL 0.50-1.04 TOTAL BILI (test code = 6848288433) 1.3 mg/dL 0.1-1.1 H CALCIUM (test code = 8467454900) 9.0 mg/dL 8.6-10.6 T PROTEIN (test code = 8631950633) 8.1 g/dL 6.3-8.2 ALBUMIN (test code = 7620131783) 4.4 g/dL 3.5-5.0 ALK PHOS (test code = 5114955036) 69 U/L 34-122 ALTv (test code = 1742-6) 18 U/L 5-35 AST(SGOT) (test code = 7094562845) 27 U/L 13-40 eGFR (test code = 95271-0) 130.7 mL/min/1.73m2 CKD-EPI eGFR (2020). Assuming creatinine has been stable day-to-day for at least three months, the eGFR indicates Category G1 (>= 90 mL/min/1.73 m2) Lab Interpretation (test code = 61123-1) Abnormal [facility]2023-11-16 03:49:36* Test Item Value Reference Range Interpretation Comme nts LIPASE (test code = 8032961293) 72 U/L 0-220 Lab Interpretation (test cod e = 09310-7) Normal [facility] [id number] 03:44:00* Test Item Value Reference Range Interpretation Comme nts POCT PREG (test code = 1605) Negative On board controls acceptable with C Line (test code = 3574) Yes POCT PREG LOT # (test code = 3575 703789 POCT PREG TEST DATE ( test code = 3576) 04 05 25 Lab Interpretation (test cod e = 19166-5) Normal [facility] WITH [id number] 03:40:14* Test Item Value Reference Range Interpretation [...] 32.5 g/dL 31.6-35.1 RDW-SD (test code = 41318-5) 40.6 fL 39.0-49.9 RDW-CV (test code = 788-0) 13.2 % 12.0-15.5 PLT (test code = 777-3) 368 See_Comment H [Automated CellPlya ge] The system which generated this result transmitted reference range: 166 - 358 10*3/?L. The reference range was not used to interpret this result as normal/abnormal. MPV (test code = 78623-2) 8.8 fL 9.5-12.9 L NRBC/100 WBC (test code = 9387773040) 0.0 See_Comment [Automated Trak.io ssage] The system which generated this result transmitted reference range: 0.0 - 10.0 /100 WBCs. The reference range was not used to interpret this result as normal/abnormal. NRBC x10^3 (test code = 5768190878) See_Comment [Automated CellPlya GetSnippy] The system which generated this result transmitted reference range: 10*3/?L. The reference range was not used to interpret this result as normal/abnormal. GRAN MAT (NEUT) % (test code = 770-8) 51.4 % IMM GRAN % (test code = 8526290444) 0.30 % LYMPH % (test code = 736-9) 41.9 % MONO % (test code = 5905-5) 4.1 % EOS % (test code = 713-8) 1.8 % BASO % (test code = 706-2) 0.5 % GRAN MAT x10^3(ANC) (test code = 6711548384) 4.05 10*3/uL 1.88-7.09 IMM GRAN x10^3 (test code = 3533435399) 0.00-0.06 LYMPH x10^3 (test code = 731-0) 3.30 10*3/uL 1.32-3.29 H MONO x10^3 (test code = 742-7) 0.32 10*3/uL 0.33-0.92 L EOS x10^3 (test code = 711-2) 0.14 10*3/uL 0.03-0.39 BASO x10^3 (test code = 704-7) 0.04 10*3/uL 0.01-0.07 Lab Interpretation (test code = 87584-2) Abnormal [facility] Consult Notes Date/Time Note Provider Source 2023-05-15 12:17:24 Associated Order(s): CONSULT RADIO ENGINEER-ADULT Movie Writer Update: CM spoke with patient and boyfriend, Lorna Petersen, , at bedside. Discussed and provided resources [...] Cesilia Mcdonnell to follow-up for continued assistanced, SW/CM to follow along Leandra Oro RN, BSN Case Management Movie Writer [address] [address] O [phone] [email or web address] Leandra Oro RN [facility] - Health History and Physical Notes Date/Time Note Provider Source 2023-12-04 10:19:25 Surgery H&P Update 12/04/2023 10:19 AM Paz Castrejon is a 18 year old female who was seen and examined today in the preoperative area. After discussion with the patient, she would like to go ahead and proceed with laparoscopic cholecystectomy. No interval changes to the patient's history and physical exam, which was completed on 11/26/23. It has been reviewed by Dr. Lee. No visits to PCP or ED in the interim. No changes in medications or physical exam. The risks, benefits and alternatives to the procedure were reviewed with the patient today. The patient's questions were answered, voiced understanding and agreement. Informed written consent was obtained. See full H&P note below for review. Plan: - OR for laparoscopic cholecystectomy - The risks and benefits of the procedure were discussed in detail with the patient. Alternatives to operative intervention were also discussed. Pertinent surgical risks reviewed included: bleeding, infection, damage to surrounding structures, and need for additional procedures. Patient voiced understanding of these risks and agreed to proceed with the operation. Informed consent is signed and in the chart. Kim Block MD [facility] General Surgery 12/04/2023 10:19 AM Associated attestation - Shreya Lee MD - 12/04/2023 11:41 AM CDT Attending Attestation: I personally evaluated and examined the patient on 12/04/[address] Block's interval note as written. I actively participated in the decision-making process. Please see the resident's note for additional details. Patient with continued RUQ pain with nausea and vomiting. She understands that cholecystectomy will not improve hyperemesis , patient understands risks related to anesthesia and cholecystectomy and to her fetus, she has signed the surgical and anesthesia consents is is willing to proceed. Preoperative heart tones obtained and reassuring. Will check postoperative heart tones. Proceed with cholecystectomy. Shreya Lee M.D. 12/04/2023 11:38 Source Note - Darcy Umanzor MD - 11/26/2023 1:45 PM CDT [facility] VISIT Visit Type: new eval Date: 11/26/2023 Chief Complaint: symptomatic cholelithiasis HPI: Paz Castrejon is a 18 year old female at 12w6d gestation presenting for intermittent epigastric pain with N/V and chills. Episodes happen about 2x per week sometimes after eating and last 30 min to 1hr. Has been seen by ER multiple times due to pain, most recently on 11/14/23, US showing gallstones without acute cholecystitis. Notes difficulty eating due to fear of triggering attack, and has lost 3-4 lbs. Denies any problems with the currently. Previously had a history of IUFD at 18w gestation during last and being considered for cerclage. PSH significant for laparoscopic appendectomy 10 weeks ago at 2w gestation during current . Histories No past medical history on file. Past Surgical History: Procedure Laterality Date APPENDECTOMY 2023 Family History Problem Relation Age of Onset No Significant Medical Problems Mother Asthma Father Asthma Sister Arthritis Maternal Grandmother Depression Maternal Grandfather Cancer Maternal Grandfather Social History Tobacco Use Smoking status: Never Passive exposure: Never Smokeless tobacco: Never Substance Use Topics Alcohol use: Not Currently Drug use: Not Currently No Known Allergies Current Outpatient Medications: ondansetron 4 mg tablet, Take 1 tablet by mouth every 8 (eight) hours., Disp: 10 tablet, Rfl: 0 PNV 67-iron ps-folate no.1-dha (VITAFOL ULTRA) 29 mg iron- 1 mg-200 mg Cap, Take 1 Each by mouth in the morning., Disp: 30 capsule, Rfl: 8 proMETHazine 25 mg tablet, Take 1 tablet by mouth every 6 (six) hours as needed for Nausea and Vomiting (N/V)., Disp: 30 tablet, Rfl: 0 Review of Systems (-)=Negative,(+)=Positive Constitutional: negative Skin: negative HEENT: negative Cardio: negative Resp: negative GI: per HPI : negative MUMTAZ: negative Neuro: negative Physical Exam Vitals: 11/26/23 1402 BP: 116/70 Pulse: 93 Resp: 16 Temp: 37 ?C (98.6 ?F) SpO2: 95% General: Alert and oriented x 4, NAD HEENT: normocephalic, atraumatic Respiratory: unlabored, equal bilateral chest rise Cardiovascular: hemodynamically stable, regular rate Abdomen: soft, non-distended, non-tender. Gravid uterus extending about 7 cm below the umbilicus. Laparoscopic incisions well healed. Extremities: no rash, cyanosis or edema Neuro: moves all extremities, answers questions appropriately Laboratory Routine Visit on 11/25/2023 Component Date Value POCT PH U 11/25/2023 6 POCT U LEUK EST 11/25/2023 negative POCT U NIT 11/25/2023 negative POCT U PROT 11/25/2023 trace POCT U GLU 11/25/2023 negative POCT U KETONE 11/25/2023 negative POCT U BLD 11/25/2023 negative Admission on 11/14/2023, Discharged on 11/15/2023 Component Date Value WBC 11/15/2023 10.79 RBC 11/15/2023 4.63 HGB 11/15/2023 12.8 HCT 11/15/2023 38.2 MCV 11/15/2023 82.5 MCH 11/15/2023 27.6 MCHC 11/15/2023 33.5 RDW-SD 11/15/2023 45.0 RDW-CV 11/15/2023 14.9 PLT 11/15/2023 322 MPV 11/15/2023 9.3 (L) NRBC/100 WBC 11/15/2023 0.0 NRBC x10 3 11/15/2023 <0.01 GRAN MAT (NEUT) % 11/15/2023 78.7 IMM GRAN % 11/15/2023 0.30 LYMPH % 11/15/2023 14.6 MONO % 11/15/2023 4.4 EOS % 11/15/2023 1.6 BASO % 11/15/2023 0.4 GRAN MAT x10 3 (ANC) 11/15/2023 8.49 (H) IMM GRAN x10 3 11/15/2023 0.03 LYMPH x10 3 11/15/2023 1.58 MONO x10 3 11/15/2023 0.48 EOS x10 3 11/15/2023 0.17 BASO x10 3 11/15/2023 0.04 NA 11/15/2023 136 K 11/15/2023 3.8 CL 11/15/2023 103 CO2 TOTAL 11/15/2023 22 (L) AGAP 11/15/2023 11 BUN 11/15/2023 8 GLUCOSE 11/15/2023 81 CREATININE 11/15/2023 0.54 TOTAL BILI 11/15/2023 0.7 CALCIUM 11/15/2023 9.5 T PROTEIN 11/15/2023 8.2 ALBUMIN 11/15/2023 4.5 ALK PHOS 11/15/2023 63 ALTv 11/15/2023 15 AST(SGOT) 11/15/2023 23 eGFR 11/15/2023 135.4 LIPASE 11/15/2023 57 APPEARANCE 11/15/2023 Hazy (A) COLOR 11/15/2023 Yellow PH 11/15/2023 7.0 SP GRAVITY 11/15/2023 1.014 GLU U QUAL 11/15/2023 Normal BLOOD 11/15/2023 Negative KETONES 11/15/2023 Negative PROTEIN 11/15/2023 Negative UROBILIN 11/15/2023 Normal BILIRUBIN 11/15/2023 Negative NITRITE 11/15/2023 Negative LEUK BUBBA 11/15/2023 500/uL (A) RBC/HPF 11/15/2023 7 (H) WBC/HPF 11/15/2023 16 (H) BACTERIA 11/15/2023 Few (A) MUCOUS 11/15/2023 Slight (A) SQ EPITH 11/15/2023 9 (H) Office Visit on 11/11/2023 Component Date Value Anti-B2 Glycoprotein 1 I* 11/11/2023 2.4 Anti-B2 Glycoprotein 1 I* 11/11/2023 1.8 Anti-B2 Glycoprotein 1 I* 11/11/2023 3.5 Anticardiolipin Antibody* 11/11/2023 1.5 Anticardiolipin Antibody* 11/11/2023 1.4 Anticardiolipin Antibody* 11/11/2023 3.0 Prothrombin Time (PT) 11/11/2023 12.7 PTT-LA Ratio 11/11/2023 0.86 dRVVT Screen Ratio 11/11/2023 0.72 Anti-Xa Qualitative Inte* 11/11/2023 Not Performed Thrombin Time (TT) 11/11/2023 Not Performed Anticoagulant Medication* 11/11/2023 Not Performed Neutralized PTT-LA Ratio 11/11/2023 Not Performed Neutralized dRVVT Screen* 11/11/2023 Not Performed dRVVT 1:1 Mix Ratio 11/11/2023 Not Performed dRVVT Confirmation Ratio 11/11/2023 Not Performed Hexagonal Phospholipid C* 11/11/2023 Not Performed Lupus Anticoagulant, Int* 11/11/2023 See Note POCT U SP GRAV 11/11/2023 * POCT PH U 11/11/2023 5 POCT U LEUK EST 11/11/2023 1+ POCT U NIT 11/11/2023 negative POCT U PROT 11/11/2023 1+ POCT U GLU 11/11/2023 negative POCT U KETONE 11/11/2023 negative POCT U UROBILI 11/11/2023 * POCT U BILI 11/11/2023 * POCT U BLD 11/11/2023 negative Initial Visit on 10/29/2023 Component Date Value POCT PH U 10/29/2023 5 POCT U LEUK EST 10/29/2023 trace POCT U NIT 10/29/2023 neg POCT U PROT 10/29/2023 + POCT U GLU 10/29/2023 neg POCT U KETONE 10/29/2023 neg POCT U BLD 10/29/2023 50 POCT PREG 10/29/2023 Positive On board controls accept* 10/29/2023 Yes WBC 10/29/2023 10.93 RBC 10/29/2023 4.15 HGB 10/29/2023 10.9 (L) HCT 10/29/2023 35.0 (L) MCV 10/29/2023 84.3 MCH 10/29/2023 26.3 MCHC 10/29/2023 31.1 (L) RDW-SD 10/29/2023 46.6 RDW-CV 10/29/2023 15.2 PLT 10/29/2023 361 (H) MPV 10/29/2023 10.1 NRBC/100 WBC 10/29/2023 0.0 NRBC x10 3 10/29/2023 <0.01 GRAN MAT (NEUT) % 10/29/2023 71.5 IMM GRAN % 10/29/2023 0.40 LYMPH % 10/29/2023 22.0 MONO % 10/29/2023 4.8 EOS % 10/29/2023 1.0 BASO % 10/29/2023 0.3 GRAN MAT x10 3 (ANC) 10/29/2023 7.82 (H) IMM GRAN x10 3 10/29/2023 0.04 LYMPH x10 3 10/29/2023 2.40 MONO x10 3 10/29/2023 0.53 EOS x10 3 10/29/2023 0.11 BASO x10 3 10/29/2023 0.03 C. trachomatis Nucleic A* 10/29/2023 Negative N. gonorrhoeae Nucleic A* 10/29/2023 Negative HCV Ab 10/29/2023 Negative HCV Semi-Quantitative 10/29/2023 0.01 HBsAg 10/29/2023 Negative HBsAg Semi-Quantitative 10/29/2023 0.10 HIV 1/2 Ag-Ab with Reflex 10/29/2023 Negative HIV Semi-quantitative 10/29/2023 0.12 ABO & RH 10/29/2023 O NEGATIVE IAT 10/29/2023 Negative Rubella screen IgG 10/29/2023 Positive Syphilis IgG/IgM 10/29/2023 Non-reactive VZV IgG antibody 10/29/2023 Positive URINE CULTURE 10/29/2023 10,000 - 100,000 CFU/mL mixed aerobic organisms - suggests endogenous microbial contamination HGB A1C 10/29/2023 5.1 Radiology RUQ US 11/15/23 EXAM: US GALL BLADDER HISTORY: 18 years-old Female; Provided indication: r/o cholecystectomy. TECHNIQUE: Limited abdominal ultrasound focused on the gallbladder was performed by the ct scan special procedures technologist. The main portal vein was evaluated with color Doppler. Director [employer] Integration images were obtained for the record. COMPARISON: None FINDINGS: PANCREAS: The pancreas is unable to be visualized due to shadowing from bowel gas. LIVER: Visualized Parenchyma: The liver parenchyma exhibits normal hepatic echogenicity and echotexture. Portal vein: Hepatopetal flow is present in the main portal vein. BILE DUCTS: No intra- or extrahepatic biliary dilatation is visualized. The common duct diameter is normal and measures 0.3 cm. GALLBLADDER: Mobile and echogenic stones are seen. The gallbladder is physiologically distended. The gallbladder wall thickness is normal and measures 0.3 cm. No pericholecystic fluid is visualized. Narayanan's sign was not present. OTHER: None. IMPRESSION Cholelithiasis without sonographic evidence to suggest acute cholecystitis. Assessment/Diagnosis Paz Castrejon is a 18 year old female with at 12w6d gestation presenting for intermittent epigastric pain with N/V and chills consistent with biliary colic. Risks and benefits of surgical intervention discussed with patient including risks of anesthesia during . Recommended establishing care with OB and will reach out to discuss risks of laparoscopic cholecystectomy during this . Ideally, would delay surgery until after delivery. Plan - establish care with the OB physician considering cerclage, then send Dr. Lee a [employer] message so we can discuss risks of surgery during this - ER return precautions discussed, seek care if severe RUQ/epigastric pain that does not improve, severe N/V, or fevers - recommend avoid fatty, greasy, or spicy foods to prevent attacks - if symptoms are controlled, follow up after delivery to schedule surgery Darcy Umanzor MD Surgery PGY2 Attending Attestation: I personally evaluated and examined the patient on 11/26/[address] Umanzor' note as written. I actively participated in the decision-making process. Please see the resident's note for additional details. 18 YO 12WGA presents with biliary colic. Patient considered high risk due to incompetent cervix and is scheduled for cerclage in the upcoming weeks. Patient reports intermittent epigastric postprandial pain lasting form 30 minutes to up to 2 hours and associated with nausea and vomiting. Seen in the ED and found to have normal LFT's and gallstones. Patient underwent laparoscopic appendectomy with Dr. Ferguson at the start of her and had no complications. Considering she is a high risk risks of surgery and risk of abdominal pain/vomiting/weight loss must be balanced. Patient to establish care with Obstetric physician, once she does this will discuss with her physician risks and benefits of surgery now versus waiting until after delivery. Shreya Lee M.D. 11/26/2023 15:51 T [facility] 2023-05-15 02:59:15 TRIAGE HISTORY & PHYSICAL IDENTIFYING DATA Paz Castrejon is 17 year old, /White, Unknown, female [...] Date Value 04/26/2023 39.4 ASSESSMENT AND PLAN Paz Castrejon is a 17 year old at 18wks [...] or other health record. Paresh Kern MD . [facility] - Health Notes Date/Time Note Provider Source 2023-12-28 19:58:47 17w3d C/o lower abdominal/pelvic cramping and pain x1 day Denies vaginal bleeding OB- [facility] Report called to LEODAN Pepper in L&D Pt taken to L&D via wheelchair Yari Sanz RN [facility] 2023-12-18 17:14:02 PT D/C home. GCS15, VS stable. Given D/C paperwork. Pt ambulatory at time of discharge. Pt educated on med usage, follow up care, s/s worsening condition, need for hydration. Pt verbalized understanding. Pt ambulated from ED in NAD with significant other. Savanah Ibrahim RN [facility] 2023-12-18 17:05:00 Pt declined IV or medication. Pt states "I'm not nauseous, its just morning sickness" Dr Quinones notified. [facility] 2023-12-18 16:35:39 Patient states: "I started having abdominal pain a few days ago and I threw up 3 brown things" Reports being 15 weeks . G 2, P 0 A 1 Silvana Mcdonnell RN [facility] 2023-12-18 16:32:00 [facility] Emergency Department Note Patient Name: Paz Castrejon Date of : 2005 18 year old female Treatment Room: OR2/OR2 Primary Care Physician: PATIENT DOES NOT HAVE A PCP Patient Escorted by: Family [5] Mode of Arrival: Personal means [1] EMS Treatment Prior to ED Arrival: Travel and Exposure Screening: Symptoms Does patient have any of these symptoms?: (not recorded) Exposure Screening Has patient had contact with someone with a communicable disease in the last month?: (not recorded) Diseases exposed to:: (not recorded) Is Patient ?: (not recorded) Exposure Date: (not recorded) Chief Complaint: Chief Complaint Patient presents with Abdominal Pain VOMITING DURING History of Present Illness: The patient presents from home for evaluation for nausea and vomiting started this morning. No bad food exposure. No recent trips or travel or antibiotics. She is currently with her last menstrual period being August 27 and she is 2 para 0-0-1-0. No vaginal bleeding or discharge. She does have some mild intermittent right upper quadrant abdominal pain. She did have her gallbladder removed several weeks ago. She has seen HYDROLOGY TECHNICIAN with this and has had no complications thus far. No dysuria or hematuria. Here for evaluation. Past Medical History/Immunizations: History reviewed. No pertinent past medical history. Allergies: No Known Allergies Past Social History: Tobacco Use Never smoked or used smokeless tobacco. Passive Exposure: Never Alcohol Use Not Currently. Drug Use Not Currently. Sexual Activity Sexually active; Partners: Male; Control/Protection: None. Comments: LSI 10/28/2023 Past Surgical History: Past Surgical History: Procedure Laterality Date APPENDECTOMY 2023 LAPAROSCOPIC CHOLECYSTECTOMY N/A 12/04/2023 Surgeon: Shreya Lee MD; Location[place] [facility] [place] Review of Systems: Review of Systems Constitutional: Negative for chills and fever. Respiratory: Negative for cough and shortness of breath. Cardiovascular: Negative for chest pain. Gastrointestinal: Positive for abdominal pain, nausea and vomiting. Genitourinary: Negative for dysuria. Musculoskeletal: Negative for arthralgias, neck pain and neck stiffness. Skin: Negative for wound. Neurological: Negative for dizziness. Psychiatric/Behavioral: Negative for agitation. Endocrine: Negative for goiter. Physical Exam: ED Triage Vitals [12/18/23 1636] Weight 72.6 kg (160 lb) Actual or estimated Estimated by patient/family report Height 1.626 m (5' 4") BP 129/73 Pulse 78 Resp 16 Temp 36.6 ?C (97.8 ?F) Temp source Oral SpO2 97 % Measured on Room air Physical Exam Vitals and nursing note reviewed. Constitutional: Appearance: Normal appearance. HENT: Head: Normocephalic and atraumatic. Cardiovascular: Rate and Rhythm: Normal rate. Pulses: Normal pulses. Pulmonary: Effort: Pulmonary effort is normal. Abdominal: General: There is no distension. Palpations: There is no mass. Tenderness: There is no abdominal tenderness. There is no guarding or rebound. Hernia: No hernia is present. Musculoskeletal: General: Normal range of motion. Cervical back: Neck supple. Skin: General: Skin is warm and dry. Neurological: Mental Status: She is alert. Radiology: No orders to display Lab Results: Lab Results - No data to display EKG: If EKG completed, see Procedure Note. Orders and Treatments: No orders of the defined types were placed in this encounter. Orders Placed This Encounter Medications ondansetron (ZOFRAN (PF)) injection 4 mg ondansetron 4 mg disintegrating tablet First Provider Eval: ED Events Date/Time Event User Comments 12/18/23 1633 Medical Screening Begins PATSY QUINONES DO -- 12/18/23 1633 First Provider Evaluation PATSY QUINONES DO -- ED COURSE Diagnosis/Impression as of 12/18/23 1708 Vomiting affecting Procedures: Procedures Limited Transabdominal Ultrasound Indications: , abdominal pain and/or bleeding Findings: SIUP with EGA 16 weeks 0 days and FHT 152 bpm. No free fluid. Adnexa not visualized. Interpretation: SIUP MDM: Medical Decision Making The patient presents from home for evaluation for nausea and vomiting started this morning. No bad food exposure. No recent trips or travel or antibiotics. She is currently with her last menstrual period being August 27 and she is 2 para 0-0-1-0. No vaginal bleeding or discharge. She does have some mild intermittent right upper quadrant abdominal pain. She did have her gallbladder removed several weeks ago. She has seen HYDROLOGY TECHNICIAN with this and has had no complications thus far. No dysuria or hematuria. Vital signs are stable in the ER. Her abdomen is soft and nontender on examination. A limited transabdominal ultrasound shows a single intrauterine with good heart tones and activity. Offered the patient IV antiemetics versus ODT antiemetics and she does desire IV therapy. Anticipate discharge home later when she is able to tolerate by mouth. 1708 -the patient is doing well here in the ER. Her nausea and vomiting has resolved without the administration of antiemetics and she no longer desires the medications IV. Will prescribe her Zofran ODT to use at home as needed for nausea and vomiting. She remained stable here in the ER and is okay for discharge home with PCP follow-up. Problems Addressed: Vomiting affecting : acute illness or injury Amount and/or Complexity of Data Reviewed Radiology: Decision-making details documented in ED Course. Risk Prescription drug management. Flowsheet Documentation: Scoring Tools: No data recorded Disposition/Condition: ED Disposition ED Disposition Disch - Home Condition Stable Comment -- Discharge Medications: Patient's Medications START taking these medications ONDANSETRON 4 MG DISINTEGRATING TABLET Take 1 tablet by mouth every 8 (eight) hours as needed for Nausea and Vomiting (N/V). CONTINUE taking these medications which have NOT CHANGED ONDANSETRON 4 MG TABLET Take 1 tablet by mouth every 8 (eight) hours. PNV 67-IRON PS-FOLATE NO.1-DHA (VITAFOL ULTRA) 29 MG IRON- 1 MG-200 MG CAP Take 1 Each by mouth in the morning. PROMETHAZINE 25 MG TABLET Take 1 tablet by mouth every 6 (six) hours as needed for Nausea and Vomiting (N/V). START taking Modified Medications as Prescribed No medications on file STOP taking these medications No medications on file Follow-up: Electronically signed by: Patsy Quinones DO 12/18/239 Derrick [facility] 2023-12-05 10:00:00 Problem: Falls, Risk of Goal: Absence of falls Outcome: Adequate for discharge Problem: Infection Risk Goal: Absence of infection Outcome: Adequate for discharge Problem: Pain Goal: Control of pain at or below patient's documented comfort goal Outcome: Adequate for discharge Goal: Reduction in pain sensation Outcome: Adequate for discharge Problem: Discharge Planning Goal: Adequate for discharge Outcome: Adequate for discharge Goal: Effective communication Outcome: Adequate for discharge Problem: Activity Intolerance Goal: Improved activity tolerance Outcome: Adequate for discharge Derrick Day RN [facility] 2023-12-04 20:18:14 Problem: Falls, Risk of Goal: Absence of falls Outcome: Progressing as expected Problem: Infection Risk Goal: Absence of infection Outcome: Progressing as expected Problem: Pain Goal: Control of pain at or below patient's documented comfort goal Outcome: Progressing as expected Goal: Reduction in pain sensation Outcome: Progressing as expected Problem: Discharge Planning Goal: Adequate for discharge Outcome: Progressing as expected Goal: Effective communication Outcome: Progressing as expected Problem: Activity Intolerance Goal: Improved activity tolerance Outcome: Progressing as expected Mariya Severino RN [facility] 2023-12-04 19:48:37 Problem: Falls, Risk of Goal: Absence of falls Outcome: Progressing as expected Problem: Infection Risk Goal: Absence of infection Outcome: Progressing as expected Problem: Pain Goal: Control of pain at or below patient's documented comfort goal Outcome: Progressing as expected Goal: Reduction in pain sensation Outcome: Progressing as expected Maryellen Viramontes RN [facility] 2023-12-04 14:54:19 Patient: Paz Castrejon Procedure Summary Date: 12/04/23 Room / Location: [address] Anesthesia Start: 1155 Anesthesia Stop: 1354 Procedure: LAPAROSCOPIC CHOLECYSTECTOMY (Abdomen) Diagnosis: Gallstones Biliary colic 12 weeks gestation of (Gallstones [K80.20]Biliary colic [K80.50]12 weeks gestation of [Z3A.12]) Surgeons: Shreya Lee MD Responsible Provider: Henrry Fields MD Anesthesia Type: General ASA Status: 2 Anesthesia Type: General Last vitals BP 119/62 (12/04/23 1410) Temp Pulse 69 (12/04/23 1410) Resp 21 (12/04/23 1410) SpO2 99 % (12/04/23 1410) There were no known notable events for this encounter. Anesthesia Post Evaluation Patient location during evaluation: PACU Patient participation: complete - patient participated Level of consciousness: awake and alert Pain management: satisfactory to patient Airway patency: patent Cardiovascular status: acceptable and blood pressure returned to baseline Respiratory status: acceptable and room air Hydration status: acceptable AN-ANESTHESIOLOGY ANESTHESIOLOGIST [facility] 2023-12-04 12:52:10 Called boyfriend to give surgery start time, surgery status and patients stable condition. No questions or concerns at this time. Azalea Brand RN [facility] 2023-12-03 08:21:36 Name/ MRN / Age / Gender: Paz Castrejon, [id number] 18 year old female BMI: Estimated body mass index is 27.46 kg/m? as calculated from the following: Height as of this encounter: 1.626 m (5' 4"). Weight as of this encounter: 72.6 kg (160 lb). Allergies: Patient has no known allergies. Last Vitals: BP Readings from Last 1 Encounters: 12/02/23 117/67 Pulse Readings from Last 1 Encounters: 12/02/23 76 SpO2 Readings from Last 1 Encounters: 12/02/23 99% Date of Surgery: 12/04/2023 Surgeon: Shreya Lee MD Procedure: LAPAROSCOPIC CHOLECYSTECTOMY (Abdomen) OR [facility]: [facility] Anesthesia Preop Eval (physical exam) Anesthesia Preop: Chart Review and [id number] PONV Risk Factors: female and non-smoker PONV Risk Score: 2 Anesthesia History Anesthesia History Negative Previous Anesthetics/Airways Cardiovascular Negative Cardiac ROS Pulmonary Negative Pulmonary ROS Neuro/Musculoskeletal (+) Obesity GI/Hepatic Negative GI/Hepatic ROS Hematology Negative Hematology ROS Renal Negative Renal ROS Skin Skin ROS Negative per Chart Review Endo/Other Negative Endo/Other ROS Other HYDROLOGY TECHNICIAN P: 0 Gestational Age: 13wk Pediatric Pediatric N/A N/A Preoperative Medication Instructions Continue taking all prescribed medications except: MOOSE inhibitors, ARBs, diuretics, all oral diabetes medications Anticoagulant Therapy: Defer to surgeons Insulin: Take 1/2 dose the night prior to surgery. Hold on DOS. Phentermine: Alert [facility] anesthesiologist SGLT2 Inhibitors: "gliflozins" to be held for 3 days prior to elective surgeries GLP1 Agonosit: stop 7 days prior to surgery MAC Cases: Continue taking MOOSE inhibitors and ARBs ASA Classification ASA: 2 ASA Comments: Paz Castrejon is a 18 year old female, , currently 13w5d, being seen in clinic today for recurrent biliary colic ongoing x6 years. Patient reports she has been having intermittent symptoms of epigastric and RUQ pain associated with diaphoresis, nausea, and vomiting which is now occurring more frequently in recent months. 12/01 Surgery NOTE: Patient wishing to proceed with cholecystectomy following discussion with OB Patient understands risks of surgery when including loss or injury Labs: Chemistry 11/15/2023 CBC 11/15/2023 136 103 8 81 10.79 12.8 322 3.8 22 (L) 0.54 38.2 eGFR: 135.4 Date: 11/15/2023 ANC: 8.49 (H) Date: 11/15/2023 LFTs 11/15/2023 Coags AST: 23 AP: 63 Prot: 8.2 Ca: 9.5 PT: - Date: - ALT: 15 T Prakash: 0.7 Alb: 4.5 PTT: - Date: - PO4: - Date: - INR: - Date: - Cardiac Endocrine & other pBNP: - Date: - A1C: 5.1 Date: 10/29/2023 Trop I: - Date: - POCT A1C: - Date: - CK: - Date: - TSH: - Date: - CKMB: - Date: - FT4: - Date: - LDL: - Date: - Lact: - Date: - Procal: - Date: - Respiratory -|-|-|-|- D-dimer: - ABG Date: - Date: - Miscellaneous Type and Screen: O NEGATIVE Antibody: Negative Date: 10/29/2023 POCT : Positive Date: 10/29/2023 Current Medications: Outpatient Medications Marked as Taking for the 12/04/23 encounter (Hospital Encounter) Medication Sig Dispense Refill ondansetron 4 mg tablet Take 1 tablet by mouth every 8 (eight) hours. 10 tablet 0 PNV 67-iron ps-folate no.1-dha (VITAFOL ULTRA) 29 mg iron- 1 mg-200 mg Cap Take 1 Each by mouth in the morning. 30 capsule 8 Previous Surgeries: Past Surgical History: Procedure Laterality Date APPENDECTOMY 2023 Anesthesia Physical Exam General no apparent distress and alert and oriented x 3 Neuro/Psych Dental no notable dental hx Abdominal Airway Mallampati score:I TM distance:> 5 cm Neck ROM: full Mouth opening:normal Extremity Pulmonary bilateral clear to auscultation Other Cardiovascular Rate: normal Anesthesia Plan ASA Status: 2 Anesthetic plan on DOS: General Plan to include: IV induction and ETT Anesthesia plan discussed with: patient or event representative Post-Operative Analgesia: routine analgesia & antiemetics Recovery Plan: PACU Additional comments: [facility] 2023-12-02 15:45:59 Images from the original note were not included. Your procedure is at [facility] on 12/04/23. The address is [address] [place] [address], [facility]. [facility] nursing staff will call you the workday before your procedure to let you know what time to arrive.On the day of your procedure, please go inside that door and check in at the desk. Please note: You may not travel home alone and that includes in a taxi or by bus. We must speak to your Responsible Adult (who will be picking you up) the morning of your procedure, before the start of your procedure. This person must be an adult over the age of 18 years of age. Do not eat any solid food after midnight the night before surgery. You may have sips of clear liquids such as water, gatorade, and sprite up until two hours before your scheduled procedure. You may take your medications with a sip of water as directed by physician. Anticoagulants will be per physician guidance. Medication Note(s)/Instructions: N/A The patient was educated on medication. Teach-back method repeated and confirmed. There are no pre-op orders for labs or further testing at this time. Understanding was verbalized, with no questions or concerns at this time. The patient was informed that they would receive a call between 12-3pm the day before the procedure for arrival time. COVID SCREENING NOTE: Denies COVID OR FLU-LIKE symptoms at this time, no testing required. Pratima Panda RN [facility] 2023-12-02 14:55:08 Patient wishing to proceed with cholecystectomy following discussion with OB Patient understands risks of surgery when including loss or injury Case request submitted [facility] 2023-12-02 13:58:39 Patient has been seen. [facility] 2023-11-26 15:34:29 RN gave patient cerclage appt date, time, and location. Pt aware to be NPO. RN discussed the need for MFM consult to discuss GB removal during . Since patient is coming on 11/30 to L/D for cerclage, RN will see if MFM can discuss risks of GB removal surgery at that time, other todd patient will get an outpatient consult scheduled. Patient agreed with plan. Anastasia Nuñez RN [facility] 2023-11-26 15:17:06 Pt in clinic. States saw GI today regarding consult for cholecystomy in . Pt was told to consult with HR MFM regarding risk of surgery during . Provider notified and advised to route message to high risk to schedule consult. Paz Leroy RN 11/26/23 3:20 PM Paz Leroy RN [facility]2024-09-08 03:28:11 Patient discharged to home. Patient given printed and verbal discharge instructions regarding diagnosis. Instructed to follow up with PCP. Patient verbalized understanding of instructions. Patient awake, alert, oriented, respirations even and unlabored, skin warm and dry, color appropriate for race. No adverse reaction to meds given in ER noted upon discharge. PIV removed. Discussed medications. Advised to seek medical attention for new/prolonged/worsening of symptoms, patient ambulated from unit with steady gait in no apparent distress. Alexsandra Torre [id number] 23:13:08 Paz Castrejon is a 18 year old female presenting to the ED from home with CC of intermittent epigastric pains that have been occurring since she was 12 yrs old. Has been to several ERs before, no diagnosis, has not followed up with PCP at this time. Currently 11wks , . PMH appendectomy. On arrival to ED patient is ambulatory with strong and steady gait, respirations even and unlabored on RA, answering all questions and following commands appropriately. Patient placed in lobby pending bed availability. Taiwo [place] [id number] 09:30:00 Images from the original note were not included. Venipuncture collection performed by clean technique on the left anticubitus. Total of 1 attempts were made. Slight pressure and a bandage/dressing were applied to the site(s). The patient experienced no complications. The following specimens were processed according to instructions and sent to [facility] laboratories per lab order on 11/11/23: LT BLUE 1 SST 1 RED LAV PPT DK GREEN (LiHep) DK GREEN (SodH) OLMOS DK BLUE (K2) DK BLUE (S) ACD Blood Culture NIPT/NTD Jean Carlos kit was also collected and sent out today. TRK [id number] [place] [id number] 12:41:31 [place] [id number] 06:01:53 DELIVERY BY SPONTANEOUS VAGINAL DELIVERY Delivery [...] cord was double clamped, cut and the infant was handed off the field to the [...] umbilical cord: fetus appeared intact and normal. [facility]2024-03-08 05:13:51 Problem: Intrapartum process (including labor pain) [...] documented comfort goal Outcome: Progressing as expected [facility] Goldie Nichols [id number] 02:18:55 Initiated R FINISHER Chavez Singh [id number] 14:39:55 Written/verbal d/c instructions, out of er no distress R FINISHER Corinna Carroll [id number] 11:10:10 Patient states: "It was the stomach acid I usually throw up in the morning. There was some spirals of blood a bunch of them." Reports being 15 weeks . [place] [facility]
[2024-02-04] MEDS ORDERED: ACETAMINOPHEN 325 MG TABLET ONE (08:35)
[2024-02-04] MEDS ORDERED: ONDANSETRON 4 MG (ODT) TAB ONE (08:36)
--- NOTE | 2024-02-04 09:15 | EDPHYS ---
Physician Documentation [facility] Name: Paz Castrejon Age: 18 yrs Sex: Female : 2005 Arrival Date: 02/04/2024 Time: 08:10 Bed 14 Private MD: ED Physician Phil Leyva HPI: 02/03 08:43 This 18 yrs old Female presents to ER via Ambulatory with complaints of 23wks rn preg:sick. 08:43 The patient or guardian reports cough, flu symptoms. Onset: The symptoms/episode rn began/occurred 2 day(s) ago. Severity of symptoms: At their worst the symptoms were mild, in the emergency department the symptoms are unchanged. Associated signs and symptoms: Pertinent positives: nausea, rhinorrhea, sore throat, vomiting. Patient reports feeling sick for 2 days with cough, congestion, myalgias, runny nose and sore throat. Reports 23 weeks and nausea is increased for the last 2 days with vomiting x 3. Otherwise no related complaints.. 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 - Infectious Disease History:: Denies. - Social history:: Smoking status: Patient denies any tobacco usage or history of. - Family history:: not pertinent. - Hospitalizations: : No recent hospitalization is reported. ROS: 08:43 Constitutional: Positive for fever and chills ENT: Positive for runny nose staff development coordinator rn: Negative for chest pain, palpitations, and edema, Respiratory: Positive for cough, negative for shortness of breath Abdomen/GI: Negative for abdominal pain, diarrhea, and constipation, MS/Extremity: Negative for injury and deformity, Skin: Negative for injury, rash, and discoloration, Neuro: Negative for weakness, numbness, tingling, and seizure, Exam: 08:43 Constitutional: This is a well developed, well nourished patient who is awake, alert, rn and in no acute distress. Head/Face: Normocephalic, atraumatic. ENT: Clear nasal drainage, no stridor, mild pharyngeal erythema Cardiovascular: Regular rate and rhythm. No pulse deficits. Respiratory: Speaking full sentences, unlabored. Vital Signs: 08:27 BP 98 / 72; Pulse 113; Resp 17; Temp 99.6(O); Pulse Ox 95% ; Weight 74.84 kg; Height 5 ll1 ft. 4 in. ; Pain 5/10; 08:29 BP 104 / 58; Pulse 102; Pulse Ox 97% on R/A; ll1 09:21 Pulse 99; Resp 17; Temp 98.6; Pulse Ox 99% ; ll1 08:27 Body Mass Index 28.32 (74.84 kg, 162.56 cm) ll1 08:27 Pain Scale: Adult ll1 MDM: 08:15 Medical Screening Exam initiated rn 09:14 Differential Diagnosis: Influenza Upper Respiratory Infection. Data reviewed: vital rn signs, nurses notes, lab test result(s), and as a result, I will discharge patient. Counseling: I had a detailed discussion with the patient and/or guardian regarding the historical points, exam findings, and any diagnostic results supporting the discharge/admit diagnosis, lab results, the need for outpatient follow up, to return to the emergency department if symptoms worsen or persist or if there are any questions or concerns that arise at home. Special discussion: I discussed with the patient/guardian in detail that at this point there is no indication for admission to the hospital. It is understood, however, that if the symptoms persist or worsen the patient needs to return immediately for re-evaluation. ED course: FHT 140. 02/03 08:31 Order name: Strep rn 02/03 08:31 Order name: Flu; Complete Time: 09:04 rn 02/03 09:10 Order name: Throat Culture EDMA 02/03 09:08 Order name: Heart Tones; Complete Time: 09:15 rn Administered Medications: 08:41 Drug: Ondansetron Oral Disintegrating Tablet Oral Disintegrating Tablet 4 mg PO once ll1 Route: PO; 09:14 Follow up: Response: No adverse reaction; Nausea is decreased; RASS: Alert and Calm (0) ll1 09:04 Drug: Acetaminophen PO 325 mg PO once Route: PO; ll1 09:15 Follow up: Response: No adverse reaction; Temperature is decreased; RASS: Alert and ll1 Calm (0) Disposition Summary: 02/04/24 09:14 Discharge Ordered Notes: Location: Home rn Problem: new rn Symptoms: have improved rn Condition: Stable rn Diagnosis - Influenza due to identified novel influenza A virus with gastrointestinal rn manifestations Followup: rn - With: Private Physician - When: As needed - Reason: Recheck today's complaints, Re-evaluation by your physician Discharge Instructions: - Discharge Summary Sheet rn - Influenza, Adult rn Forms: - Medication Reconciliation Form rn - Antibiotic claims attorney - Prescription Opioid Use rn - Patient Portal Instructions rn - Leadership Thank You Letter rn - Family Work Release ll1 Prescriptions: - ondansetron 4 mg Oral Tablet,disintegrating - take 1 tablet ORAL route every 8 hours As needed; 7 tablet; Refills: 0, Product rn Selection Permitted - Tamiflu 75 mg Oral Capsule - take 1 capsule ORAL route every 12 hours for 5 days; 10 capsule; Refills: 0, rn Product Selection Permitted Signatures: Dispatcher [employer] Phil Herrera MD MD rn Prokisch, Amanda RN RN ap3 Carlos Ayala RN RN ll1
--- NOTE | 2024-02-04 09:15 | ER ---
Nurse's Notes [facility] Name: Paz Castrejon Age: 18 yrs Sex: Female : 2005 Arrival Date: 02/04/2024 Time: 08:10 Bed 14 Private MD: Diagnosis: Influenza due to identified novel influenza A virus with gastrointestinal manifestations Presentation: 02/03 08:27 Chief complaint: Patient states: Cough, congestion, fever, swollen lymph nodes, body ll1 aches for 2 days. G2, P0 Approximately 23 weeks . Sister is also sick with cough. Coronavirus screen: Client denies travel out of the [place] in the last 14 days. congestion, cough unrelated to allergies, fatigue, fever, headache, muscle pain, Client presents with at least one sign or symptom that may indicate coronavirus-19. Standard/surgical mask placed on the client. Ebola Screen: Patient denies travel to an Ebola-affected area in the 21 days before illness onset. Initial Sepsis Screen: Does the patient meet any 2 criteria? No. Patient's initial sepsis screen is negative. Does the patient have a suspected source of infection? No. Patient's initial sepsis screen is negative. Risk Assessment: Do you want to hurt yourself or someone else? Patient reports no desire to harm self or others. Onset of symptoms was February 03, 2024. 08:27 Method Of Arrival: Ambulatory ll1 08:27 Acuity: JOSR 3 ll1 Triage Assessment: 08:29 General: Appears uncomfortable, Behavior is calm, cooperative, appropriate for age. ll1 Pain: Complains of pain in head Pain currently is 5 out of 10 on a pain scale. Quality of pain is described as aching. Neuro: Reports headache. Respiratory: Reports cough that is. GI: Reports nausea, vomiting. Musculoskeletal: Reports body aches. 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 - Infectious Disease History:: Denies. - Social history:: Smoking status: Patient denies any tobacco usage or history of. - Family history:: not pertinent. - Hospitalizations: : No recent hospitalization is reported. Screenin:31 [facility] ED Fall Risk Assessment (Adult) History of falling in the last 3 months, ll1 including since admission No falls in past 3 months (0 pts) Confusion or Disorientation No (0 pts) Intoxicated or Sedated No (0 pts) Impaired Gait No (0 pts) Mobility Assist Device Used No (0 pt) Altered Elimination No (0 pt) Score/Fall Risk Level 0 - 2 = Low Risk Maintained a safe environment, Hourly rounding (assess needs \T\ fall precautionary measures) done. Abuse screen: Denies threats or abuse. Nutritional screening: No deficits noted. Tuberculosis screening: No symptoms or risk factors identified. Assessment: 08:41 Reassessment: No changes from previously documented assessment. Patient and/or family ll1 updated on plan of care and expected duration. Pain level reassessed. Patient is alert, oriented x 3, equal unlabored respirations, skin warm/dry/pink. 09:04 Reassessment: No changes from previously documented assessment. Patient and/or family ll1 updated on plan of care and expected duration. Pain level reassessed. Patient is alert, oriented x 3, equal unlabored respirations, skin warm/dry/pink. 09:22 Reassessment: No changes from previously documented assessment. Patient and/or family ll1 updated on plan of care and expected duration. Pain level reassessed. Patient is alert, oriented x 3, equal unlabored respirations, skin warm/dry/pink. Vital Signs: 08:27 BP 98 / 72; Pulse 113; Resp 17; Temp 99.6(O); Pulse Ox 95% ; Weight 74.84 kg; Height 5 ll1 ft. 4 in. ; Pain 5/10; 08:29 BP 104 / 58; Pulse 102; Pulse Ox 97% on R/A; ll1 09:21 Pulse 99; Resp 17; Temp 98.6; Pulse Ox 99% ; ll1 08:27 Body Mass Index 28.32 (74.84 kg, 162.56 cm) ll1 08:27 Pain Scale: Adult ll1 Vitals: 09:15 Heart Tones 140. Found just below belly button. ll1 ED Course: 08:13 Patient arrived in ED. ra3 08:14 Arm band placed on Patient placed in an exam room, on a stretcher. ap3 08:15 Phil Leyva MD is Attending Physician. rn 08:27 Carlos Ayala, LEODAN is Primary Nurse. ll1 08:29 Triage completed. ll1 08:31 Patient has correct armband on for positive identification. Bed in low position. ll1 Provided Education on: ER procedures and process. Client placed on continuous cardiac and pulse oximetry monitoring. NIBP monitoring applied. Pulse ox on. 08:35 Flu and/or RSV swab sent to lab. Strep swab sent to lab. ll1 08:45 Lights dimmed. Warm blanket given. ll1 09:22 No provider procedures requiring assistance completed. Patient did not have IV access ll1 during this emergency room visit. Administered Medications: 08:41 Drug: Ondansetron Oral Disintegrating Tablet Oral Disintegrating Tablet 4 mg PO once ll1 Route: PO; 09:14 Follow up: Response: No adverse reaction; Nausea is decreased; RASS: Alert and Calm (0) ll1 09:04 Drug: Acetaminophen PO 325 mg PO once Route: PO; ll1 09:15 Follow up: Response: No adverse reaction; Temperature is decreased; RASS: Alert and ll1 Calm (0) Medication: 08:42 VIS not applicable for this client. 1 Outcome: 09:14 Discharge ordered by . rn 09:22 Discharged to home ambulatory, 1 09:22 Condition: stable 09:22 Discharge instructions given to patient, Instructed on discharge instructions, follow up and referral plans. medication usage, Demonstrated understanding of instructions, follow-up care, medications, Prescriptions given X 2, 09:22 Patient left the ED. [facility] Signatures: Phil Leyva MD MD rn Prokisch, Amanda, RN RN ap3 Carlos Ayala, LEODAN RN 1 [facility]
[2024-02-04 09:28] VITALS: BP 104/58
[2024-02-04 09:29] VITALS: TEMP 98.6; O2SAT 99
== END 2024-02-04 09:22 | disposition home or self-care (01) ==
LOC: ER 08:10
DX: O99.512 Diseases of the respiratory system complicating pregnancy, second trimester (principal); J10.2 Influenza due to other identified influenza virus with gastrointestinal manifestations; Z3A.23 23 weeks gestation of pregnancy
CPT/HCPCS: 87070; 87081; 87804 ×2; 99284; Q0162

== ENCOUNTER 2024-03-03 03:37 | Emergency (ER) | payer OTHER ==
--- OUTSIDE RECORDS SUMMARY | 2024-03-03 03:42 | XMS REPORT | Continuity of Care Document ---
Author Name Unknown Address [address] [facility]. [address] [place] [address] [facility] thconnect Address [address] [facility]. [address] [place] [address] Care Team Providers Care Account Executive Key Accounts Name Role Phone Renetta Yoder Primary Care Physician KIRT PARK Attending Clinician Unavail able Fartun Munoz Attending Clinician [phone] Doctor Unassigned, [place] Attending Clinician U navailable Kirt Pedraza Attending Clinician + KELLY PETERS Attending Clinician Unavailable KELLY PETERS Attending Clinician Unavailable Kelly Peters MD Attending Clinician ZENAIDA MCKINNEY Attending Clinician UnavailZenaida Ramirez CNM Attending Clinician Ultrasound, Ang-Mfm Attending Clinician UnavailShreya Asher MD Attending Clinician [phone] ASHLY XIAO Attending Clinician Un available Ashly Xiao MD Attending Clinician JUDY HILARIO Attending Clinician Unavailable JUDY HILARIO Attending Clinician Unavailable Judy Hilario MD Attending Clinician MADELINE WINN Attending Clinician Unavail able MADELNIE WINN Attending Clinician Unavail able Risk, Rtq-Ygnia-Xi/High Attending Clinician Unav ailable Madeline Winn NP Attending Clinician [phone] RENETTA GUEVARA Attending Clinician Unavailable RENETTA GUEVARA Attending Clinician Unavailable RENETTA GUEVARA Attending Clinician Unavailable 1, [facility] Us Room Attending Clinician Unavailab Renetta Castro MD Attending Clinician [phone] SHREYA LEE Attending Clinician Unavailable PATSY QUINONES Attending Clinician Unavailab PATSY Ornelas Attending Clinician Unavailab Patsy Ornelas DO Attending Clinician [phone] FARTUN ALVARADO Attending Clinician Unavailable Jeffery Lopez CRNA Attending Clinician [phone] Henrry Fields MD Attending Clinician [phone] SANGEETA BURROUGHS Attending Clinician Unavailabl Sangeeta Alston MD Attending Clinician [phone], [facility] Us Room Attending Clinician Unavailab CHAVEZ Black Attending Clinician Unavailab CHAVEZ Black Attending Clinician Unavailab Chavez Ferrera Attending Clinician + [phone], [facility] Attending Clinician Unavailable Kirt Pedraza Attending Clinician + Paresh Kern MD Attending Clinician [phone] GENNARO VELASCO Attending Clinician Unavailable GENNARO VELASCO Attending Clinician Unavailable Rosalba Batista DO Attending Clinician [phone] ROSALBA BATISTA Attending Clinician Unavailable Racquel Bowman Attending Clinician [phone] KAILEE Attending Clinician Unavailable RENETTA GUEVARA Admitting Clinician Unavailable KELLY PETERS Admitting Clinician Unavailable Kelly Peters MD Admitting Clinician [phone] JUDY HILARIO Admitting Clinician Unavailable Judy Hilario MD Admitting Clinician [phone] SHREYA LEE Admitting Clinician Unavailable Shreya Lee MD Admitting Clinician [phone] Renetta Guevara MD Admitting Clinician CHAVEZ KATZ Admitting Clinician Unavailab Paresh Montemayor MD Admitting Clinician ROSALBA BATISTA Admitting Clinician Unavailable KAILEE Admitting Clinician Unavailable Payers Payer Name Policy Type Policy Number Effective Date Expirati on Date Source [facility] [id number] 2023 00:00:00 Problems Condition Name Condition Details Condition Category Status Onset Date Resolution Date Last Treatment Date Treating Clinician Comments Source 24 weeks gestation of 24 weeks gestation of Disease Active 2023-03 00:00: 00 [facility] History of cervical incompeten ce in , currently , second trimester History of cervical incompeten ce in , currently , second trimester Disease Active 2023-03 00:00: 00 [facility] Decreased movement affecting management of in second trimester, single or unspecifie d fetus Decreased movement affecting management of in second trimester, single or unspecifie d fetus Disease Active 2023-03 00:00: 00 [facility] Cervical incompeten ce, antepartum Cervical incompeten ce, antepartum Disease Active 2023-03 205 00:00: 00 [facility] Gallstones Gallstones Disease Active 12-01 00:00: 00 [facility] Biliary colic Biliary colic Disease Active 12-01 00:00: 00 [facility] History of IUFD History of IUFD Disease Active 10-28 00:00: 00 Overview: Formattin g of this note might be different from the original. At 19 weeks [facility] Supervisio n of high-risk Supervisio n of high-risk Disease Active 10-28 00:00: 00 [facility] Over weight Over weight Disease Active 10-28 00:00: 00 [facility] Nausea and vomiting in Nausea and vomiting in Disease Active 10-28 00:00: 00 [facility] Rh negative state in antepartum period Rh negative state in antepartum period Disease Active 8 00:00: 00 [facility] Nausea and vomiting in Nausea and vomiting in Disease Active 10-28 00:00: 00 [facility] Nabothian cyst Nabothian cyst Disease Active 2022-03 1-15 00:00: 00 [facility] 12 weeks gestation of 12 weeks gestation of Disease Resolve d 9-25 00:00: 00 2024-01-06 00:00:00 2024-01-06 09:56:46 [facility] 13 weeks gestation of 13 weeks gestation of Disease Resolve d 9-24 00:00: 00 2024-01-06 00:00:00 2024-01-06 09:56:45 [facility] Missed Missed Disease Resolve d 3-08 00:00: 00 2023-10-29 00:00:00 2023-10-29 09:22:27 [facility] Abdominal pain, unspecifie d abdominal location Abdominal pain, unspecifie d abdominal location Disease Resolve d 2022-03 1 00:00: 00 2023-10-29 00:00:00 2023-10-29 09:22:18 [facility] Allergies, Adverse Reactions, Alerts Allergy Name Allergy Type Status Severity Reaction(s) Onset Date Inactive Date Treating Clinician Comments Source NO KNOWN ALLERGIE S Drug Class Active [facility] Social History Social Habit Start Date Stop Date Quantity Comments Source ASSERTION 2023-09-11 00:00:00 [facility] Alcoholic beverage intake 2024-02-11 00:00:00 2024-02-11 00:00:00 Ex-drinker (finding) [facility] History of Social function 2023-06-05 00:00:00 2023-06-05 00:00:00 [facility] Tobacco use and exposure 2023-05-15 00:00:2023-05-15 00:00:00 Smokeless tobacco non-user [facility] Sex assigned at 2003 00:00:00 2005 00:00:00 [facility] Smoking Status Start Date Stop Date Source Tobacco smoking consumption unknown [facility] Never smoked tobacco [facility] Medications Ordered Medication Name Filled Medication Name Start Date Stop Date Current Medication? Ordering Clinician Indication Dosage Frequency Signature (SIG) Comments Components Source Progesteron e Micronized 100 mg vaginal insert 2023-03 2 00:00: 00 Yes [id number] 200mg Insert 2 Each into vagina in the morning. Insert 2 each into vagina at night [facility] Nitrofurant oin&Nit. Macrocryst (MACROBID) 100 mg capsule 100 mg 2023-03 02:54: 00 12-28 02:59 :00 No 100mg 100 mg, Oral, ONCE, 1 dose, On Thu12/28/23 at 2200, Routine, Reason for Anti-Infec tive: Empiric Therapy for Suspected Infection, Empiric Therapy Site: Urine, Duration of therapy: Once (ED) [facility] Nitrofurant oin&Nit. Macrocryst 100 mg capsule 2023-03 00:00: 00 02-16 00:00 :00 No [id number] 100mg Take 1 capsule by mouth in the morning and 1 capsule in the evening. [facility] pedi multivit no.91/iron fum (CHILDREN'S CHEW MULTIVIT-IR ON ORAL) 2023-03 14:14: 39 Yes Take by mouth. [facility] ondansetron 4 mg disintegrat ing tablet 2023-03 00:00: 00 Yes [id number] 4mg Take 1 tablet by mouth every 8 (eight) hours as needed for Nausea and Vomiting (N/V). [facility] acetaminoph en (TYLENOL) tablet 650 mg 12-03 23:00: 00 12-04 17:38 :55 No 650mg 650 mg, Oral, Q6H, First dose on Thu12/04/23 at 1800, Until Discontinu ed, Routine [facility] acetaminoph en (OFIRMEV) IV piggyback 1,000 mg 12-03 21:30: 00 12-03 22:23 :00 No 1000mg 1,000 mg, IV Piggyback, at 400 mL/hr Administer over 15 Minutes, ONCE, 1 dose, On Thu12/04/23 at 1630, Routine, Is the patient strict NPO and unable to tolerate oral medication s? Yes [facility] ondansetron (ZOFRAN (PF)) injection 4 mg 12-03 21:00: 00 12-03 20:28 :37 No 4mg 4 mg, Slow IV Push, ONCE, On Thu12/04/23 at 1600, For 1 dose, Doses of ondansetro n 16 mg and above need to be administer ed via IV piggyback. For Dose >=24mg ECG monitoring is advisable. [facility] ondansetron (ZOFRAN (PF)) injection 4 mg 12-03 20:28: 04 12-04 17:38 :55 No 4mg 4 mg, Slow IV Push, Q6HPRN, Nausea and Vomiting (N/V), Starting on Thu12/04/23 at 1528, Doses of ondansetro n 16 mg and above need to be administer ed via IV piggyback. For Dose >=24mg ECG monitoring is advisable. [facility] HYDROcodone -acetaminop hen (NORCO 5) tablet 1 tablet 12-03 20:26: 17 12-04 17:38 :55 No 1{tbl} 1 tablet, Oral, Q6HPRN, Starting on Thu12/04/23 at 1526, Until 12/05/23 at 1238, Routine, Pain (scale 4-6) [facility] lactated ringers IV infusion 1,000 mL 12-03 19:15: 00 12-04 14:03 :59 No 1000mL at 75 mL/hr, 1,000 mL, IV Infusion, CONTINUOUS , Starting on Thu12/04/23 at 1415, Until 12/05/23 at 0903, Routine, PACU [facility] FENTanyl (PF) (SUBLIMAZE) injection 25 mcg 12-03 19:13: 54 12-03 21:05 :18 No 25ug 25 mcg, Slow IV Push, Q5MIN PRN, 4 doses, Starting on Thu12/04/23 at 1413, Until Thu12/04/23 at 1605, Routine, Pain (scale 7-10), [facility]U [facility] glycopyrrol ate (ROBINUL) injection 12-03 19:02: 00 12-03 19:07 :45 No Intravenou s, ONCE INTRA PROCEDURE, Starting on Thu12/04/23 at 1402, Until Thu12/04/23 at 1407, Routine, [facility] neostigmine methylsulfa [facility] (BLOXIVERZ) injection 12-03 19:02: 00 12-03 19:07 :26 No Slow IV Push, ONCE INTRA PROCEDURE, Starting on Thu12/04/23 at 1402, Until Thu12/04/23 at 1407, Routine, Intra-op [facility] bupivacaine (preserv free) (SENSORCAIN E MPF) 0.25 % (2.5 mg/mL) 30 mL, lidocaine-e pinephrine (XYLOCAINE W/EPINEPHRI NE) 1 %-1:200,000 30 mL 12-03 17:44: 00 12-03 19:21 :04 No PRN, Starting on Thu12/04/23 at 1244, Intra-op [facility] sodium chloride 0.9 % irrigation solution 12-03 17:28: 00 12-03 19:21 :04 No PRN, Starting on Thu12/04/23 at 1228, Until Thu12/04/23 at 1421, Intra-op [facility] ceFAZolin (ANCEF) injection 12-03 17:10: 00 12-03 18:54 :52 No Intravenou s, ONCE INTRA PROCEDURE, Starting on Thu12/04/23 at 1210, Until Thu12/04/23 at 1354, MAK, Intra-op [facility] rocuronium (ZEMURON) injection 12-03 17:02: 00 12-03 18:54 :52 No IV Push, ONCE INTRA PROCEDURE, Starting on Thu12/04/23 at 1202, Until Thu12/04/23 at 1354, Routine, Intra-op [facility] propofoL IV infusion 12-03 17:02: 00 12-03 18:54 :52 No Intravenou s, ONCE INTRA PROCEDURE, Starting on Thu12/04/23 at 1202, Until Thu12/04/23 at 1354, Routine, Intra-op [facility] lidocaine 1% (XYLOCAINE) 100 mg/10 mL (1 %) injection 12-03 17:02: 00 12-03 18:54 :52 No Intravenou s, ONCE INTRA PROCEDURE, Starting on Thu12/04/23 at 1202, Until Thu12/04/23 at 1354, Routine, Intra-op [facility] FENTanyl (PF) (SUBLIMAZE) injection 12-03 17:02: 00 12-03 18:54 :52 No Intravenou s, ONCE INTRA PROCEDURE, Starting on Thu12/04/23 at 1202, Until Thu12/04/23 at 1354, Routine, Intra-op [facility] lactated ringers IV infusion 12-03 16:55: 00 12-03 18:54 :52 No Intravenou s, CONTINUOUS PRN, Starting on Thu12/04/23 at 1155, Until Thu12/04/23 at 1354, Routine, Intra-op [facility] lactated ringers IV infusion 1,000 mL 12-03 15:00: 00 12-03 15:44 :00 No 1000mL at 42 mL/hr, 1,000 mL, IV Infusion, ONCE, 1 dose, On Thu12/04/23 at 1000, Routine, DSU Pre-op [facility] HYDROcodone -acetaminop hen 5-325 mg tablet 12-03 00:00: 00 12-11 04:59 :00 Yes [id number] 1{tbl} Take 1 tablet by mouth every 6 (six) hours as needed for Pain (scale 7-10) for up to 7 days. Indication s: acute pain [facility] cefTRIAXone (ROCEPHIN) 1,000 mg in NaCl 0.9% (NS) 100 mL MINI-BAG 11-14 06:45: 00 11-14 08:05 :00 No 1000mg 1,000 mg, IV Piggyback, ONCE, 1 dose, On 11/15/23 at 0145, Administer over 30 Minutes, 100 mL, Reason for Anti-Infec tive: Documented Infection, Documented Infection Site: Urine, Duration of Therapy: Once (ED) [facility] ondansetron 4 mg tablet 11-14 00:00: 00 12-20 00:00 :00 No [id number] 4mg Take 1 tablet by mouth every 8 (eight) hours. [facility] cephALEXin 500 mg capsule 11-14 00:00: 00 11-22 04:59 :00 No [id number] 1000mg Take 2 capsules by mouth in the morning and 2 capsules in the evening. Do all this for 7 days. [facility] Nitrofurant oin&Nit. Macrocryst 100 mg capsule 11-03 00:00: 00 11-14 00:00 :00 No 100mg Take 1 capsule by mouth every 12 (twelve) hours. [facility] proMETHazin e 25 mg tablet 10-28 00:00: 00 Yes [id number] 25mg Take 1 tablet by mouth every 6 (six) hours as needed for Nausea and Vomiting (N/V). [facility] PNV 67-iron ps-folate no.1-dha (VITAFOL ULTRA) 29 mg iron- 1 mg-200 mg Cap 10-28 00:00: 00 Yes [id number] 1{each} Take 1 Each by mouth in the morning. [facility] HYDROcodone -acetaminop hen (NORCO 5) 5-325 mg tablet 1 tablet 05-14 12:46: 22 Yes 1{tbl} 1 tablet, Oral, Q6HPRN, Starting on Thu05/15/23 at 0646, Until Discontinu ed, Routine, Pain (scale 7-10) [facility] ibuprofen (IBU) tablet 600 mg 05-14 12:46: 22 Yes 600mg 600 mg, Oral, Q6HPRN, Starting on Thu05/15/23 at 0646, Until Discontinu ed, Routine, Pain (scale 4-6) [facility] acetaminoph en (TYLENOL) tablet 650 mg 05-14 12:46: 22 Yes 650mg 650 mg, Oral, Q6HPRN, Starting on Thu05/15/23 at 0646, Until Discontinu ed, Routine, Pain (scale 1-3) [facility] diphenhydrA MINE (BENADRYL) tablet 25 mg 05-14 12:46: 22 Yes 25mg 25 mg, Oral, Q6HPRN, Starting on Thu05/15/23 at 0646, Until Discontinu ed, Routine, Sleep, Itching [facility] ondansetron (ZOFRAN (PF)) injection 4 mg 05-14 12:46: 22 Yes 4mg 4 mg, Slow IV Push, Q8HPRN, Starting on Thu05/15/23 at 0646, Until Discontinu ed, Routine, Nausea and Vomiting (N/V) [facility] simethicone (GAS RELIEF (SIMETHICON E)) chewable tablet 160 mg 05-14 12:46: 22 Yes 160mg 160 mg, Oral, PC+HSPRN, Starting on Thu05/15/23 at 0646, Until Discontinu ed, Routine, Gas [facility] docusate (COLACE) capsule 200 mg 05-14 12:46: 22 Yes 200mg 200 mg, Oral, QDAILYPRN, Starting on Thu05/15/23 at 0646, Until Discontinu ed, Routine, Constipati on [facility] magnesium hydroxide (MILK OF MAGNESIA) 400 mg/5 mL suspension 30 mL 05-14 12:46: 22 Yes 30mL 30 mL, Oral, QDAILYPRN, Starting on Thu05/15/23 at 0646, Until Discontinu ed, Routine, Constipati on [facility] benzocaine- menthol (DERMOPLAST ) 20-0.5 % topical spray 05-14 12:46: 22 Yes Topical, PRN, Starting on Thu05/15/23 at 0646, Until Discontinu ed, Routine, Perineum discomfort [facility] ibuprofen (IBU) tablet 600 mg 05-14 12:18: 54 Yes 600mg 600 mg, Oral, Q6HPRN, Starting on Thu05/15/23 at 0618, Until Discontinu ed, Routine, Pain (scale 1-3) [facility] proMETHazin e (PHENERGAN) 25 mg in NS 50 mL IV piggyback (CNR) 05-14 10:01: 48 05-14 10:01 :00 No 25mg 25 mg, IV Piggyback, at 200 mL/hr Administer over 15 Minutes, ONCE PRN, 1 dose, Starting on Thu05/15/23 at 0401, Until Thu05/15/23 at 0401, Routine, with morphine [facility] morpHINE (2 mg/mL) injection 6 mg 05-14 10:01: 41 05-14 09:37 :00 No 6mg 6 mg, Slow IV Push, ONCE PRN, 1 dose, Starting on Thu05/15/23 at 0401, Until Thu05/15/23 at 2359, Routine, Pain (scale 4-6) [facility] miSOPROStoL (CYTOTEC) tablet 200 mcg 05-14 10:00: 00 05-14 09:49 :00 No 200ug 200 mcg, Oral, Q4H, 1 dose, First dose (after last modificati on) on Thu05/15/23 at 0400, Routine [facility] oxytocin (PITOCIN) 30 units in NS 500 mL IV infusion 05-14 08:48: 52 05-14 11:51 :00 No 600mL/h 600 mL/hr, IV Infusion, PRN, PPH, Starting on Thu05/15/23 at 0248, For 1 dose
As instructed by physician at bedside.<b r> [facility] sodium citrate-cit denis acid (BICITRA) 500-334 mg/5 mL solution 30 mL 05-14 08:48: 52 05-14 11:42 :00 No 30mL 30 mL, Oral, PRE-PROCED URE ONCE, 1 dose, Starting on Thu05/15/23 at 0248, Until Discontinu ed, Routine, Surgery/Pr ocedure [facility] lactated ringers IV infusion 1,000 mL 05-14 08:48: 52 05-14 12:46 :44 No 1000mL at 1-125 mL/hr, 1,000 mL, IV Infusion, TITRATE, Starting on Thu05/15/23 at 0248, Until Thu05/15/23 at 0646, Routine [facility] vitamin w/FA tablet 05-14 00:00: 00 10-28 00:00 :00 No [id number] 1{tbl} Take 1 tablet by mouth in the morning. [facility] docusate 100 mg capsule 05-14 00:00: 00 10-28 00:00 :00 No [id number] 200mg Take 2 capsules by mouth once daily as needed for Constipati on. [facility] ferrous sulfate 325 mg (65 mg iron) tablet 05-14 00:00: 00 10-28 00:00 :00 No [id number] 325mg Take 1 tablet by mouth in the morning. [facility] ibuprofen 600 mg tablet 05-14 00:00: 00 10-28 00:00 :00 No [id number] 600mg Take 1 tablet by mouth every 6 (six) hours as needed (Pain). Take with food or milk. [facility] diphenhydrA MINE 25 mg tablet 05-14 00:00: 00 10-28 00:00 :00 No [id number] 25mg Take 1 tablet by mouth at bedtime as needed for Sleep. [facility] melatonin 3 mg Cap 08 00:00: 00 10-28 00:00 :00 No [id number] 3mg Take 3 mg by mouth at bedtime. [facility] Nitrofurant oin&Nit. Macrocryst (MACROBID) 100 mg capsule 04-26 00:00: 00 05-04 05:59 :00 No [id number] 100mg Take 1 capsule by mouth in the morning and 1 capsule in the evening. Do all this for 7 days. [facility] amoxicillin 500 mg tablet 03-26 00:00: 00 Yes 1mg Rony Niurka Rodney Immunizations Ordered Immunization Name Filled Immunization Name Date Status Comments Source Rho (d) Immune Globulin 2023-05-15 00:00:00 Completed [facility] Rho (d) Immune Globulin 2023-05-15 00:00:00 Completed [facility] Rho (d) Immune Globulin 2023-05-15 00:00:00 Completed [facility] Rho (d) Immune Globulin 2023-05-15 00:00:00 Completed [facility] Rho (d) Immune Globulin 2023-05-15 00:00:00 Completed [facility] Rho (d) Immune Globulin 2023-05-15 00:00:00 Completed [facility] Rho (d) Immune Globulin Unknown Completed [facility] Rho (d) Immune Globulin Unknown Completed [facility] Rho (d) Immune Globulin Unknown Completed [facility] Rho (d) Immune Globulin Unknown Completed [facility] Rho (d) Immune Globulin Unknown Completed [facility] Rho (d) Immune Globulin Unknown Completed [facility] Rho (d) Immune Globulin Unknown Completed [facility] Rho (d) Immune Globulin Unknown Completed [facility] Rho (d) Immune Globulin Unknown Completed [facility] Rho (d) Immune Globulin Unknown Completed [facility] Rho (d) Immune Globulin Unknown Completed [facility] Rho (d) Immune Globulin Unknown Completed [facility] Rho (d) Immune Globulin Unknown Completed [facility] Rho (d) Immune Globulin Unknown Completed [facility] Rho (d) Immune Globulin Unknown Completed [facility] Vital Signs Vital Name Observation Time Observation Value Comments Alexis meza Heart rate 2024-02-17 19:15:00 66 /min [facility] O[facility] saturation in Arterial blood by Pulse oximetry 2024-02-17 19:15:00 100 /min [facility] Systolic blood pressure 2024-02-17 19:00:00 104 mm[Hg] [facility] Diastolic blood pressure 2024-02-17 19:00:00 56 mm[Hg] [facility] Body temperature 2024-02-17 18:00:00 36.94 Miriam [facility] Respiratory rate 2024-02-17 18:00:00 18 /min [facility] Body height 2024-02-17 17:42:00 162.6 cm [facility] Body weight 2024-02-17 17:42:00 81.375 kg [facility] BMI 2024-02-17 17:42:00 30.79 kg/m2 [facility] Systolic blood pressure 2024-02-11 22:08:00 107 mm[Hg] [facility] Diastolic blood pressure 2024-02-11 22:08:00 59 mm[Hg] [facility] Heart rate 2024-02-11 22:08:00 59 /min [facility] Body temperature 2024-02-11 22:08:00 36.72 Miriam [facility] Respiratory rate 2024-02-11 22:08:00 16 /min [facility] Body height 2024-02-11 22:08:00 162.6 cm [facility] Body weight 2024-02-11 22:08:00 80.332 kg [facility] BMI 2024-02-11 22:08:00 30.40 kg/m2 [facility] Systolic blood pressure 2024-01-06 14:08:00 107 mm[Hg] [facility] Diastolic blood pressure 2024-01-06 14:08:00 67 mm[Hg] [facility] Heart rate 2024-01-06 14:08:00 75 /min [facility] Body temperature 2024-01-06 14:08:00 36.67 Miriam [facility] Respiratory rate 2024-01-06 14:08:00 17 /min [facility] Body height 2024-01-06 14:08:00 162.6 cm [facility] Body weight 2024-01-06 14:08:00 75.66 kg [facility] BMI 2024-01-06 14:08:00 28.63 kg/m2 [facility] Heart rate 2023-12-29 02:45:00 68 /min [facility] Oxygen saturation in Arterial blood by Pulse oximetry 2023-12-29 02:45:00 99 /min [facility] Systolic blood pressure 2023-12-29 02:30:00 93 mm[Hg] [facility] Diastolic blood pressure 2023-12-29 02:30:00 51 mm[Hg] [facility] Body temperature 2023-12-29 01:20:00 37 Miriam [facility] Respiratory rate 2023-12-29 01:20:00 18 /min [facility] Body height 2023-12-29 01:20:00 162.6 cm [facility] Body weight 2023-12-29 01:20:00 73.936 kg [facility] BMI 2023-12-29 01:20:00 27.98 kg/m2 [facility] Systolic blood pressure 2023-12-23 19:28:00 118 mm[Hg] [facility] Diastolic blood pressure 2023-12-23 19:28:00 57 mm[Hg] [facility] Heart rate 2023-12-23 19:28:00 69 /min [facility] Body temperature 2023-12-23 19:28:00 36.5 Miriam [facility] Respiratory rate 2023-12-23 19:28:00 18 /min [facility] Body height 2023-12-23 19:28:00 162.6 cm [facility] Body weight 2023-12-23 19:28:00 73.965 kg [facility] BMI 2023-12-23 19:28:00 27.99 kg/m2 [facility] Systolic blood pressure 2023-12-21 19:13:00 105 mm[Hg] [facility] Diastolic blood pressure 2023-12-21 19:13:00 65 mm[Hg] [facility] [facility] Heart rate 2023-12-21 19:13:00 92 /min [facility] Respiratory rate 2023-12-21 19:13:00 20 /min [facility] Body height 2023-12-21 19:13:00 162.6 cm Univ [facility] Body weight 2023-12-21 19:13:00 72.576 kg [facility] BMI 2023-12-21 19:13:00 27.46 kg/m2 Univ [facility] Oxygen saturation in Arterial blood by Pulse oximetry 2023-12-21 19:13:00 97 /min [facility] Systolic blood pressure 2023-12-18 21:36:00 129 mm[Hg] [facility] Diastolic blood pressure 2023-12-18 21:36:00 73 mm[Hg] [facility] Heart rate 2023-12-18 21:36:00 78 /min [facility] Body temperature 2023-12-18 21:36:00 36.56 Miriam [facility] Respiratory rate 2023-12-18 21:36:00 16 /min [facility] Body height 2023-12-18 21:36:00 162.6 cm Univ [facility] Body weight 2023-12-18 21:36:00 72.576 kg [facility] BMI 2023-12-18 21:36:00 27.46 kg/m2 [facility] Oxygen saturation in Arterial blood by Pulse oximetry 2023-12-18 21:36:00 97 /min [facility] Systolic blood pressure 2023-12-09 13:52:00 111 mm[Hg] [facility] Diastolic blood pressure 2023-12-09 13:52:00 67 mm[Hg] [facility] Heart rate 2023-12-09 13:52:00 81 /min [facility] Body temperature 2023-12-09 13:52:00 36.28 Miriam [facility] Respiratory rate 2023-12-09 13:52:00 18 /min [facility] Body height 2023-12-09 13:52:00 162.6 cm [facility] Body weight 2023-12-09 13:52:00 72.984 kg Univ [facility] BMI 2023-12-09 13:52:00 27.62 kg/m2 [facility] Systolic blood pressure 2023-12-05 13:45:00 103 mm[Hg] [facility] Diastolic blood pressure 2023-12-05 13:45:00 47 mm[Hg] [facility] Heart rate 2023-12-05 13:45:00 60 /min [facility] Body temperature 2023-12-05 13:45:00 36.78 Miriam [facility] Respiratory rate 2023-12-05 13:45:00 18 /min [facility] Oxygen saturation in Arterial blood by Pulse oximetry 2023-12-05 13:45:00 100 /min [facility] Body height 2023-12-04 15:28:00 162.6 cm [facility] Body weight 2023-12-04 15:28:00 72.576 kg [facility] BMI 2023-12-04 15:28:00 27.46 kg/m2 [facility] Systolic blood pressure 2023-12-04 19:05:00 122 mm[Hg] [facility] Diastolic blood pressure 2023-12-04 19:05:00 90 mm[Hg] [facility] Heart rate 2023-12-04 19:05:00 135 /min [facility] Respiratory rate 2023-12-04 19:05:00 22 /min [facility] Oxygen saturation in Arterial blood by Pulse oximetry 2023-12-04 19:05:00 97 /min [facility] Body temperature 2023-12-04 18:57:00 36.39 Miriam [facility] Body height 2023-12-04 15:28:00 162.6 cm Univ [facility] Body weight 2023-12-04 15:28:00 72.576 kg [facility] BMI 2023-12-04 15:28:00 27.46 kg/m2 [facility] Systolic blood pressure 2023-12-02 18:48:00 117 mm[Hg] [facility] Diastolic blood pressure 2023-12-02 18:48:00 67 mm[Hg] [facility] Heart rate 2023-12-02 18:48:00 76 /min [facility] Body temperature 2023-12-02 18:48:00 36.78 Miriam [facility] Respiratory rate 2023-12-02 18:48:00 18 /min [facility] Body height 2023-12-02 18:48:00 162.6 cm [facility] Body weight 2023-12-02 18:48:00 73.982 kg [facility] BMI 2023-12-02 18:48:00 28.00 kg/m2 [facility] Oxygen saturation in Arterial blood by Pulse oximetry 2023-12-02 18:48:00 99 /min [facility] Body height 2023-12-01 14:25:00 162.6 cm [facility] Body weight 2023-12-01 14:25:00 72.576 kg [facility] BMI 2023-12-01 14:25:00 27.45 kg/m2 [facility] Systolic blood pressure 2023-12-01 14:00:00 104 mm[Hg] [facility] Diastolic blood pressure 2023-12-01 14:00:00 60 mm[Hg] [facility] Heart rate 2023-12-01 14:00:00 56 /min [facility] Body temperature 2023-12-01 14:00:00 36.89 Miriam [facility] Respiratory rate 2023-12-01 14:00:00 18 /min [facility] Oxygen saturation in Arterial blood by Pulse oximetry 2023-12-01 14:00:00 100 /min [facility] Systolic blood pressure 2023-11-26 19:02:00 116 mm[Hg] [facility] Diastolic blood pressure 2023-11-26 19:02:00 70 mm[Hg] [facility] Heart rate 2023-11-26 19:02:00 93 /min [facility] Body temperature 2023-11-26 19:02:00 37 Miriam [facility] Respiratory rate 2023-11-26 19:02:00 16 /min [facility] Body height 2023-11-26 19:02:00 162.6 cm Univ [facility] Body weight 2023-11-26 19:02:00 72.122 kg [facility] BMI 2023-11-26 19:02:00 27.29 kg/m2 [facility] Oxygen saturation in Arterial blood by Pulse oximetry 2023-11-26 19:02:00 95 /min [facility] Systolic blood pressure 2023-11-25 19:26:00 114 mm[Hg] [facility] Diastolic blood pressure 2023-11-25 19:26:00 59 mm[Hg] [facility] Heart rate 2023-11-25 19:26:00 70 /min [facility] Body temperature 2023-11-25 19:26:00 35.33 Miriam [facility] Body height 2023-11-25 19:26:00 162.6 cm Univ [facility] Body weight 2023-11-25 19:26:00 72.476 kg [facility] BMI 2023-11-25 19:26:00 27.43 kg/m2 [facility] Systolic blood pressure 2023-11-15 08:00:00 102 mm[Hg] [facility] Diastolic blood pressure 2023-11-15 08:00:00 66 mm[Hg] [facility] Heart rate 2023-11-15 08:00:00 80 /min [facility] Body temperature 2023-11-15 08:00:00 36.72 Miriam [facility] Respiratory rate 2023-11-15 08:00:00 18 /min [facility] Oxygen saturation in Arterial blood by Pulse oximetry 2023-11-15 08:00:00 99 /min [facility] Body height 2023-11-15 04:18:00 162.6 cm [facility] Body weight 2023-11-15 04:18:00 73.483 kg [facility] BMI 2023-11-15 04:18:00 27.81 kg/m2 [facility] Systolic blood pressure 2023-11-11 13:17:00 114 mm[Hg] [facility] Diastolic blood pressure 2023-11-11 13:17:00 68 mm[Hg] [facility] Heart rate 2023-11-11 13:17:00 91 /min [facility] Body temperature 2023-11-11 13:17:00 37 Miriam [facility] Respiratory rate 2023-11-11 13:17:00 18 /min [facility] Body weight 2023-11-11 13:17:00 73.528 kg [facility] Systolic blood pressure 2023-10-29 13:57:00 115 mm[Hg] [facility] Diastolic blood pressure 2023-10-29 13:57:00 68 mm[Hg] [facility] Heart rate 2023-10-29 13:57:00 64 /min [facility] Body temperature 2023-10-29 13:57:00 36.83 Miriam [facility] Respiratory rate 2023-10-29 13:57:00 19 /min [facility] Body height 2023-10-29 13:57:00 162.6 cm [facility] Body weight 2023-10-29 13:57:00 73.846 kg [facility] BMI 2023-10-29 13:57:00 27.94 kg/m2 [facility] Systolic blood pressure 2023-06-05 18:23:00 129 mm[Hg] [facility] Diastolic blood pressure 2023-06-05 18:23:00 73 mm[Hg] [facility] Heart rate 2023-06-05 18:23:00 79 /min [facility] Body temperature 2023-06-05 18:23:00 36.17 Miriam [facility] Respiratory rate 2023-06-05 18:23:00 18 /min [facility] Body height 2023-06-05 18:23:00 162.6 cm [facility] Body weight 2023-06-05 18:23:00 73.573 kg [facility] BMI 2023-06-05 18:23:00 27.84 kg/m2 [facility] Systolic blood pressure 2023-05-15 23:30:00 122 mm[Hg] [facility] Diastolic blood pressure 2023-05-15 23:30:00 58 mm[Hg] [facility] Heart rate 2023-05-15 23:30:00 70 /min [facility] Body temperature 2023-05-15 23:30:00 37 Miriam [facility] Respiratory rate 2023-05-15 23:30:00 18 /min [facility] Oxygen saturation in Arterial blood by Pulse oximetry 2023-05-15 23:30:00 100 /min [facility] Body height 2023-05-15 08:14:00 162.6 cm [facility] Body weight 2023-05-15 08:14:00 61.236 kg [facility] BMI 2023-05-15 08:14:00 23.16 kg/m2 [facility] Systolic blood pressure 2023-04-26 20:30:00 109 mm[Hg] [facility] Diastolic blood pressure 2023-04-26 20:30:00 75 mm[Hg] [facility] Heart rate 2023-04-26 20:30:00 70 /min [facility] Body temperature 2023-04-26 20:30:00 37 Miriam [facility] Respiratory rate 2023-04-26 20:30:00 15 /min [facility] Oxygen saturation in Arterial blood by Pulse oximetry 2023-04-26 20:30:00 99 /min [facility] Body height 2023-04-26 17:11:00 162.6 cm [facility] Body weight 2023-04-26 17:11:00 61.236 kg [facility] BMI 2023-04-26 17:11:00 23.17 kg/m2 [facility] Systolic blood pressure 2023-01-22 03:50:00 108 mm[Hg] [place] [facility] Diastolic blood pressure 2023-01-22 03:50:00 78 mm[Hg] [facility] Heart rate 2023-01-22 03:50:00 59 /min [facility] Respiratory rate 2023-01-22 03:50:00 18 /min [facility] Oxygen saturation in Arterial blood by Pulse oximetry 2023-01-22 03:50:00 100 /min [facility] Body temperature 2023-01-22 01:36:00 36.78 Miriam [facility] Body weight 2023-01-22 01:36:00 56.7 kg [facility] BP Systolic 2023-11-20 15:28:00 104 mm[Hg] Step hen F Rodney BP Diastolic 2023-11-20 15:28:00 65 mm[Hg] [place] phen F Rodney Weight Measured 2023-11-20 15:28:00 159.60 pounds Rony F Rodney Height Measured 2023-11-20 15:28:00 63.25 inches Rony [...] Weight Measured 2018-03-26 14:37:00 180.60 pounds Rony F Rodney Height Measured 2018-03-26 14:37:00 63.25 inches Orny F Rodney Body Temperature 2018-03-26 14:37:00 97.60 degrees Rony F Rodney Heart Rate 2018-03-26 14:37:00 60.00 /min Rachel Stevens Respiratory Rate 2018-03-26 14:37:00 Rony Bah Rodney Procedures Procedure Date / Time Performed Performing Clinician Source POCT URINALYSIS 2024-02-11 22:15:00 Kirt Park [facility] SECOND AND THIRD TRIMESTER ULTRASOUND 2024-01-28 21:10:00 Fartun Alvarado [facility] SECOND AND THIRD TRIMESTER ULTRASOUND 2024-01-14 18:09:00 Fartun Alvarado [facility] SECOND AND THIRD TRIMESTER ULTRASOUND 2024-01-06 18:08:00 Fartun Alvarado [facility] POCT URINALYSIS 2024-01-06 14:54:00 [place] [facility] URINALYSIS 2023-12-29 01:41:00 Judy Hilario [facility] ADC CLC OR LCC ONLY - WET PREP 2023-12-29 01:41:00 Judy Hilario [facility] POCT URINALYSIS 2023-12-23 19:30:00 [place] [facility] SECOND AND THIRD TRIMESTER ULTRASOUND 2023-12-22 16:38:00 Fartun Alvarado [facility] POCT URINALYSIS 2023-12-09 13:56:00 K[place] Park [facility] [id number] - CT LAPAROSCOPY SURG CHOLECYSTECTOMY 2023-12-04 16:40:00 Shreya Lee [facility] [id number] - CT LAPS SURG CHOLECYSTECTOMY W/CHOLANGIOGRAPHY 2023-12-04 16:40:00 Shreya Lee [facility] [id number] - CT LAPS SURG CHOLECSTC W/EXPL COMMON DUCT 2023-12-04 16:40:00 Shreya Lee [facility] POCT URINALYSIS W/O SPECIFIC GRAVITY 2023-11-25 19:25:00 Madeline Winn [facility] SECOND AND THIRD TRIMESTER ULTRASOUND 2023-11-25 16:23:00 Fartun Alvarado [facility] LIPASE 2023-11-15 06:04:00 SterlingSudheerChavez Un [facility] COMP. METABOLIC PANEL (86693) 2023-11-15 06:04:00 Chavez Katz [facility] CBC WITH DIFF 2023-11-15 06:04:00 [facility] 2023-11-15 06:04:00 Sterling Chavez Un [facility] POCT URINALYSIS 2023-11-11 13:30:00 [place] Park [facility] POCT URINALYSIS W/O SPECIFIC GRAVITY 2023-10-29 13:56:00 [place] Park [facility] POCT TEST 2023-10-29 13:55:00 Dinesh Park [facility] HB HEMOGLOBIN STAINS 2023-05-15 14:43:00 Yari Serna [facility] ABORH CONFIRMATION (LAB ONLY) 2023-05-15 09:55:00 [facility] RHO (D) IMMUNE GLOBULIN 2023-05-15 09:32:00 Oli Kern [facility] HIV 1/2 AG-AB WITH REFLEX 2023-05-15 09:32:00 [facility] CBC WITH DIFF 2023-05-15 09:32:00 Paresh Kern [facility] HEPATITIS B SURFACE ANTIGEN 2023-05-15 09:32:00 [facility] RH IMMUNE GLOBULIN REQUIRED? 2023-05-15 09:32:00 [facility] HB ABO GROUPING 2023-05-15 09:32:00 Praesh Kern [facility] US PELVIS > 14 WEEKS 2023-05-15 09:22:40 [facility] ASSIGNMENT OF BENEFITS 2023-04-26 18:34:15 Docto r Unassigned, [place] [facility] BASIC METABOLIC PANEL (NA, K, CL, CO2, GLUCOSE, BUN, CREATININE, CA) 2023-04-26 18:29:00 Gennaro Velasco [facility] TOTAL BETA HCG ASSAY 2023-04-26 18:29:00 Gennaro Velasco [facility] CBC WITH DIFF 2023-04-26 18:29:00 Gennaro Velasco [facility] URINALYSIS 2023-04-26 18:29:00 Gennaro Velasco [facility] POCT TEST 2023-04-26 18:29:00 Gennaro Velasco [facility] NOTICE OF PRIVACY PRACTICES 2023-04-26 17:04:19 Doctor Unassigned, [place] [facility] CONSENT/REFUSAL FOR DIAGNOSIS AND TREATMENT 2023-04-26 17:03:50 Doctor Unassigned, [place] [facility] US OVARY TORSION 2023-01-22 04:45:00 Rosalba Batista [facility] POCT TEST 2023-01-22 03:44:00 Joan Batista [facility] URINALYSIS 2023-01-22 03:41:00 Rosalba Batista [facility] LIPASE 2023-01-22 03:22:00 Rosalba Batista [facility] COMP. METABOLIC PANEL (95018) 2023-01-22 03:22:00 Rosalba Batista [facility] CBC WITH DIFF 2023-01-22 03:22:00 Rosalba Batista [facility] CONSENT/REFUSAL FOR DIAGNOSIS AND TREATMENT 2023-01-22 01:09:11 Doctor Unassigned, [place] [facility] Encounters Start Date/Time End Date/Time Encounter Type Admission Type Attending [facility] Care Facility Care Department Encounter ID Source 2023-12-01 13:23:24 Outpatient P [facility] [id number] [facility] 2024-02-29 15:00:00 2024-02-29 15:00:00 Outpatient R [place] [facility] [id number] [facility] 2024-02-25 00:00:00 2024-02-25 16:59:49 Abstract Fartun Alvarado [facility] 1.2.840.114 350.1.13.10 4.2.7.2.686 [id number] [facility] 2024-02-18 00:00:00 2024-02-18 12:21:59 Patient Secure Msg Doctor Unassigned, [place] Doctor Unassigned, Mcfarland [facility] ([facility] 1.2.840.114 350.1.13.10 4.2.7.2.686 [id number] [facility] 2024-02-18 00:00:00 2024-02-18 12:15:06 Telephone [place] [facility] ([facility]) 1.2840.114 350.1.13.10 4.2.7.2.686 [id number] [facility] 2024-02-17 11:44:00 2024-02-17 13:26:00 Outpatient KELLY MCKINNEY VIVIAN [facility] [id number] [facility] 2024-02-17 11:44:00 2024-02-17 13:26:00 Emergency AdKelly collins [facility] 1.2.840.114 350.1.13.10 4.2.7.2.686 [id number] [facility] 2024-02-15 00:00:00 2024-02-15 15:33:56 Telephone [place] [facility] PROFESSIONAL [facility] 1.2.840.114 350.1.13.10 4.2.7.2.686 [id number] [facility] 2024-02-11 15:30:00 2024-02-11 16:30:32 Outpatient ZENAIDA GREENE [facility] [id number] [facility] 2024-02-11 15:30:00 2024-02-11 16:30:32 Routine Visit [place] Brenda A [facility] PROF[facility]AL [facility]ILD [facility] 1..114 350.1.13.10 4.2.7.2.686 [id number] [facility] 2024-02-11 00:00:00 2024-02-11 12:54:29 Abstract Fartun Alvarado [facility] PROFESSIONAL [facility] & CHILD [facility] 1.114 350.1.13.10 4.2.7.2.686 [id number] [facility] 2024-02-08 15:30:00 2024-02-08 15:30:00 Outpatient R [place] [facility] [id number] [facility] 2024-02-03 10:00:00 2024-02-03 10:00:00 Outpatient R [place] [facility] [id number] [facility] 2024-02-02 15:00:00 2024-02-02 15:00:00 Outpatient P [facility] [id number] [facility] 2024-01-29 00:00:00 2024-01-29 12:07:53 Abstract Fartun Alvarado [facility] CHILD [facility] .84.114 350.1.13.10 4.2.7.2.686 [id number] [facility] 2024-01-28 15:00:00 2024-01-28 15:10:41 Outpatient P [place] [facility] [id number] [facility] 2024-01-28 15:00:00 2024-01-28 15:10:41 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 Ultrasound, Ang-Mfm [place] [facility] PROF[facility]AL [facility]ILD [facility] 1.84.114 350.1.13.10 4.2.7.2.686 [id number] [facility] 2023-12-13 00:00:00 2024-01-16 18:24:40 Patient Secure Msg Shreya Lee [facility] 1.2840.114 350.1.13.10 4.2.7.2.686 [id number] [facility] 2023-12-13 00:00:00 2024-01-16 18:24:33 Patient Secure Msg Doctor Unassigned, [place]far[place] Doctor Unassigned, Mcfarland [facility] ([facility]) 1.840.114 350.1.13.10 4.2.7.2.686 [id number] [facility] 2024-01-14 11:00:00 2024-01-14 12:09:50 Outpatient KITR CALZADA [facility] [id number] [facility] 2024-01-14 11:00:00 2024-01-14 12:09:50 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 Ultrasound, Kirt Licona [facility] PROFESSIONAL [facility] 1.840.114 350.1.13.10 4.2.7.2.686 [id number] [facility] 2024-01-11 00:00:00 2024-01-11 10:49:59 Abstract Fartun Alvarado [facility] PROFESSIONAL [facility] 1..840.114 350.1.13.10 4.2.7.2.686 [id number] [facility] 2024-01-06 11:00:00 2024-01-06 17:20:14 Outpatient R ASHLY GUILLEN [facility] [id number] [facility] 2024-01-06 11:00:00 2024-01-06 17:20:14 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 Ultrasound, Ashly Ordaz [facility] PROFESSIONAL [facility] 1..840.114 350.1.13.10 4.2.7.2.686 [id number] [facility] 2024-01-06 09:15:00 2024-01-06 09:57:21 Outpatient R [place] [facility] [id number] [facility] 2024-01-06 09:15:00 2024-01-06 09:57:21 Routine Visit [place] [facility] 1..840.114 350.1.13.10 4.2.7.2.686 [id number] [facility] 2023-11-26 00:00:00 2024-01-02 18:26:57 Patient Secure Msoli HuertaLeeShreya [facility] 1..840.114 350.1.13.10 4.2.7.2.686 [id number] [facility] 2023-12-31 00:00:00 2023-12-31 15:18:54 Abstract Fartun Alvarado [facility] PROF[facility] ..840.114 350.1.13.10 4.2.7.2.686 [id number] [facility] 2023-12-29 15:30:00 2023-12-29 15:30:00 Outpatient R [facility] [id number] [facility] 2023-12-28 20:06:00 2023-12-28 22:00:00 Outpatient X JUDY HILARIO VIEN [facility] [id number] [facility] 2023-12-28 20:06:00 2023-12-28 22:00:00 Emergency Judy Hilario [facility] 1..840.114 350.1.13.10 4.2.7.2.686 [id number] [facility] 2023-12-23 09:45:00 2023-12-23 14:56:12 Outpatient R MADELINE WINN KRISTIN [facility] [id number] [facility] 2023-12-23 09:45:00 2023-12-23 14:56:12 Routine Visit Risk, Ang-Rmchp-N p/High Madeline Winn Risk, Ang-Rmchp-N p/High [facility] 1..840.114 350.1.13.10 4.2.7.2.686 [id number] [facility] 2023-12-22 11:30:00 2023-12-22 11:44:37 Outpatient R RENETTA GUEVARA KARIN FOX, KARIN [facility] [id number] [facility] 2023-12-22 11:30:00 2023-12-22 11:44:37 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 1, [facility] Renetta Guevara [facility] 1..840.114 350.1.13.10 4.2.7.2.686 [id number] [facility] 2023-12-21 14:00:00 2023-12-21 14:42:42 Outpatient R SHREYA LEE [facility] [id number] [facility] 2023-12-21 14:00:00 2023-12-21 14:42:42 Office Visit Shreya Lee [facility] EULOGIO SWIFTHANNAH [facility]ESS[facility] 1..840.114 350.1.13.10 4.2.7.2.686 [id number] [facility] 2023-12-18 16:38:00 2023-12-18 17:16:00 Emergency X PATSY QUINONES SANDRA [facility] ERT [id number] [facility] 2023-12-18 16:38:00 2023-12-18 17:16:00 Emergency Deep Patsy Aldrich [facility] 1.2840.114 350.1.13.10 4.2.7.2.686 [id number] 084 [id number] [facility] 2023-12-09 08:45:00 2023-12-09 09:59:04 Outpatient R FARTUN ALVARADO [facility] [id number] [facility] 2023-12-09 08:45:00 2023-12-09 09:59:04 Routine Visit Risk, Ang-Rmchp-N p/High Fartun Alvarado Risk, Ang-Rmchp-N p/High [facility] 1.840.114 350.1.13.10 4.2.7.2.686 [id number] 107 [id number] [facility] 2023-11-04 00:00:00 2023-12-05 18:20:27 Patient Secure Msg [place] [facility] CHILD [facility] 1..840.114 350.1.13.10 4.2.7.2.686 [id number] [facility] 2023-12-04 09:57:00 2023-12-05 10:15:00 Outpatient R SHREYA LEE [facility] [id number] [facility] 2023-12-04 09:57:00 2023-12-05 10:15:00 Hospital Encounter Shreya Lee [facility] 1..840.114 350.1.13.10 4.2.7.2.686 [id number] [id number] [facility] 2023-12-04 11:30:00 2023-12-04 14:08:00 Surgery Shreya Lee [facility] 1.2.840.114 350.1.13.10 4.2.7.2.686 [id number] 020 [id number] [facility] 2023-12-04 11:55:00 2023-12-04 13:54:00 Anesthesia Event JessicaGermainJeffery Henrry Fields [facility] 1.2.840.114 350.1.13.10 4.2.7.2.686 [id number] 020 [id number] [facility] 2023-12-02 00:00:00 2023-12-02 14:59:10 Telephone Shreya Lee [facility] 1.2.840.114 350.1.13.10 4.2.7.2.686 [id number] 010 [id number] [facility] 2023-12-02 13:00:00 2023-12-02 14:56:16 Outpatient R MANJEETSANGEETA [facility] [id number] [facility] 2023-12-02 13:00:00 2023-12-02 14:56:16 Office Visit Sangeeta Burroughs [facility] 1.2.840.114 350.1.13.10 4.2.7.2.686 [id number] [facility] 2023-12-02 00:00:00 2023-12-02 13:59:22 Patient Secure Msg Sangeeta Burroughs [facility] 1.2.840.114 350.1.13.10 4.2.7.2.686 [id number] [facility] 2023-12-01 08:29:00 2023-12-01 13:23:00 Outpatient P RENETTA GUEVARA KARIN FOX, KARIN [facility] [id number] [facility] 2023-12-01 08:29:00 2023-12-01 13:23:00 Hospital Encounter Renetta Guevara [facility] 1.84.114 350.1.13.10 4.2.7.2.686 [id number] [facility] 2023-11-26 00:00:00 2023-11-26 16:27:23 Abstract Fartun Alvarado [facility] 1..114 350.1.13.10 4.2.7.2.686 [id number] 107 [id number] [facility] 2023-11-26 00:00:00 2023-11-26 15:36:53 Telephone Madeline Winn [facility] 1..114 350.1.13.10 4.2.7.2.686 [id number] [facility] 2023-11-26 13:45:00 2023-11-26 15:06:03 Outpatient R SHREYA LEE [facility] [id number] [facility] 2023-11-26 13:45:00 2023-11-26 15:06:03 Office Visit Shreya Lee [facility] 1.84.114 350.1.13.10 4.2.7.2.686 [id number] [facility] 2023-11-25 14:30:00 2023-11-25 14:47:35 Routine Visit Risk, Ang-Rmchp-N p/High Molly Guillen Risk, Ang-Rmchp-N p/High [facility] 1..114 350.1.13.10 4.2.7.2.686 [id number] [facility] 2023-11-25 11:00:00 2023-11-25 11:22:47 Outpatient R MOLLY GUILLEN [facility] [id number] [facility] 2023-11-25 11:00:00 2023-11-25 11:22:47 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, [facility] Room Molly Guillen [facility] 1.2.840.114 350.1.13.10 4.2.7.2.686 [id number] [facility] 2023-11-20 15:21:13 2023-11-20 15:21:13 Outpatient SFA SFA [id number] Rony Stevens 2023-11-20 00:00:00 2023-11-20 00:00:00 Outpatient Visit SFA [id number] Rony Stevens 2023-11-14 23:19:00 2023-11-15 03:28:00 Emergency X CHAVEZ KATZ MICHELLE [facility] ERT [id number] [facility] 2023-11-14 23:19:00 2023-11-15 03:28:00 Emergency Chavez Katz [facility] 1..840.114 350.1.13.10 4.2.7.2.686 [id number] [facility] 2023-11-11 09:30:00 2023-11-11 09:45:00 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, [facility] Lab Fartun Alvarado 2, Adc Lab [facility] 1.2.840.114 350.1.13.10 4.2.7.2.686 [id number] [facility] 2023-11-11 08:00:00 2023-11-11 09:06:54 Outpatient R FARTUN ALVARADO [facility] [id number] [facility] 2023-11-11 08:00:00 2023-11-11 09:06:54 Office Visit Risk, Ang-Rmchp-N p/High Fartun Alvarado, Ang-Rmchp-N p/High [facility] 1.2.840.114 350.1.13.10 4.2.7.2.686 [id number] [facility] 2023-10-29 09:00:00 2023-10-29 10:16:26 Initial Visit [place] [facility] 1.2.840.114 350.1.13.10 4.2.7.2.686 [id number] [facility] 2023-06-05 13:00:00 2023-06-05 13:15:00 Routine Visit [place] [facility] 1.2.840.114 350.1.13.10 4.2.7.2.686 [id number] [facility] 2023-05-15 00:53:00 2023-05-15 19:25:00 [facility] 1.2.840.114 350.1.13.10 4.2.7.2.686 [id number] [facility] 2023-04-26 11:15:00 2023-04-26 14:40:00 Emergency X GENNARO VELASCO JULIO [facility] ERT [id number] [facility] 2023-04-26 11:15:00 2023-04-26 14:40:00 Emergency Gennaro Velasco [facility] 1.2.840.114 350.1.13.10 4.2.7.2.686 [id number] [id number] [facility] 2023-01-21 19:37:00 2023-01-21 23:59:00 Emergency Rosalba Batista [facility] 1.2.840.114 350.1.13.10 4.2.7.2.686 [id number] [id number] [facility] 2023-01-21 19:37:00 2023-01-21 23:59:00 Emergency X LYNNE, ROSALBA BATISTA, ROSALBA [facility] ERT [id number] [facility] 2022-12-09 00:00:00 2022-12-09 00:00:00 Telephone [facility] 1.2.840.114 350.1.13.10 4.2.7.2.686 [id number] [facility] 2021-09-19 03:33:00 2021-09-19 03:33:00 Outpatient KERMIT COATS [facility] [id number] [facility] Results Test Description Test Time Test Comments Results Result Co mments Source [facility] SPECIFIC [id number] 14:54:00* Test Item Value Reference Range Interpretation Comme nts POCT U SP GRAV (test code = 3255) . 1.005-1.025 POCT PH U (test code = 3254) . 5-8 POCT U LEUK EST (test code = 3263) . Negative - N egative POCT U NIT (test code = 3262) . Negative - Negati ve POCT U PROT (test code = 3259) trace Negative - Negat gabriel POCT U GLU (test code = 3256) neg Negative - Negati ve POCT U KETONE (test code = 3258) . Negative - Neg ative POCT U UROBILI (test code = 3260) . 0.2-1 POCT U BILI (test code = 3261) . Negative - Negat gabriel POCT U BLD (test code = 3257) . Negative - Negati ve POCT U COLOR (test code = 3266) POCT U APPEAR (test code = 3267) [facility] URIN[facility] W SPECIFIC [id number] 19:30:00* Test Item Value Reference Range Interpretation [...] U APPEAR (test code = 3267) . [facility] URINALYSIS W SPECIFIC [id number] 13:56:00* Test Item Value Reference Range Interpretation [...] U APPEAR (test code = 3267) . [facility] Urinalysis w/o Specific [id number] 19:26:00* Test Item Value Reference Range Interpretation [...] = 3257) negative Negative - Negati ve [facility] METABOLIC PANEL (70393)2023-11-15 06:47:45* Test Item Value Reference Range Interpretation Comme nts NA (test code = 8069652764) 136 mmol/L 135-145 K (test code = 2422983868) 3.8 mmol/L 3.5-5.0 CL (test code = 1476703802) 103 mmol/L 98-108 CO2 TOTAL (test code = 3995373316) 22 mmol/L 23-31 L AGAP (test code = 7608051863) 11 2-16 BUN (test code = 8286497563) 8 mg/dL 7-23 GLUCOSE (test code = 2128512371) 81 mg/dL 70-110 CREATININE (test code = 2160-0) 0.54 mg/dL 0.50-1.04 TOTAL BILI (test code = 4954902616) 0.7 mg/dL 0.1-1.1 CALCIUM (test code = 0800845031) 9.5 mg/dL 8.6-10.6 T PROTEIN (test code = 2570095270) 8.2 g/dL 6.3-8.2 ALBUMIN (test code = 2725639048) 4.5 g/dL 3.5-5.0 ALK PHOS (test code = 7752234496) 63 U/L 34-122 ALTv (test code = 1742-6) 15 U/L 5-35 AST(SGOT) (test code = 2097245644) 23 U/L 13-40 eGFR (test code = 19204-7) 135.4 mL/min/1.73m2 CKD-EPI eGFR (2020). Assuming creatinine has been stable day-to-day for at least three months, the eGFR indicates Category G1 (>= 90 mL/min/1.73 m2) Lab Interpretation (test code = 12641-6) Abnormal [facility]2024-[facility]-08 06:47:45* Test Item Value Reference Range Interpretation Comme nts LIPASE (test code = 0124696535) 57 U/L 0-220 Lab Interpretation (test cod e = 82240-4) Normal [facility] WITH [id number] 06:10:02* Test Item Value Reference Range Interpretation [...] 33.5 g/dL 31.6-35.1 RDW-SD (test code = 00643-9) 45.0 fL 39.0-49.9 RDW-CV (test code = 788-0) 14.9 % 12.0-15.5 PLT (test code = 777-3) 322 166-358 MPV (test code = 19082-8) 9.3 fL 9.5-12.9 L NRBC/100 WBC (test code = 2782237929) 0.0 0.0-10.0 NRBC x10^3 (test code = 4995476554) See_Comment [Automated messa ge] The system which generated this result transmitted reference range: 10*3/?L. The reference range was not used to interpret this result as normal/abnormal. GRAN MAT (NEUT) % (test code = 770-8) 78.7 % IMM GRAN % (test code = 0772133558) 0.30 % LYMPH % (test code = 736-9) 14.6 % MONO % (test code = 5905-5) 4.4 % EOS % (test code = 713-8) 1.6 % BASO % (test code = 706-2) 0.4 % GRAN MAT x10^3(ANC) (test code = 9656894234) 8.49 10*3/uL 1.88-7.09 H IMM GRAN x10^3 (test code = 5321668495) 0.03 10*3/uL 0.00-0.06 LYMPH x10^3 (test code = 731-0) 1.58 10*3/uL 1.32-3.29 MONO x10^3 (test code = 742-7) 0.48 10*3/uL 0.33-0.92 EOS x10^3 (test code = 711-2) 0.17 10*3/uL 0.03-0.39 BASO x10^3 (test code = 704-7) 0.04 10*3/uL 0.01-0.07 Lab Interpretation (test code = 74528-3) Abnormal [facility] URINALYSIS W SPECIFIC [id number] 13:31:00* Test Item Value Reference Range Interpretation [...] POCT U APPEAR (test code = 3267) [facility] [id number] 13:56:00* Test Item Value Reference Range Interpretation Comme nts POCT PREG (test code = 1605) Positive On board controls acceptable with C Line (test code = 3574) Yes POCT PREG LOT # (test code = 3571) POCT PREG TEST DATE ( test code = 3576) [facility] Urinalysis w/o Specific [id number] 13:56:00* Test Item Value Reference Range Interpretation [...] = 3257) 50 Negative - Negati ve [facility] HospitalFetal HGB Stain/KB [id number] 16:42:00* Test Item Value Reference Range Interpretation Comme nts HGB STAIN (test code = 843) Negative RHIG REQUIRED? (test code = 1747) 1 Syringe BLEED IN MLS (test cod e = 5045) See comment 0mL [facility] IMMUNE GLOBULIN REQUIRED?2023-05-15 15:23:24* Test Item Value Reference Range Interpretation Comme nts RHIG REQUIRED? (test code = 1747) Hgb Stain Rqd. Pt was 18 weeks Performed at [facility] Laboratory Services - [facility] Blood [address] [place], [place] [id number] Free: [phone] No. [id number] [facility] HospitalRHO (D) IMMUNE [id number] 15:23:18* Test Item Value Reference Range Interpretation Comme nts RHIG CANDIDATE? (test code = 5188) Yes- see comment A Patient is a candidate for RhIg- Patient is Rh Negative and baby is Rh Unknown.Performed at [facility] Laboratory Services - [employer] Blood [address] [place] [address]Cfkt Free: [phone] No. [id number] Lab Interpretation (test code = 97049-3) Abnormal [facility] HospitalUS PELVIS > 14 [id number] 14:05:57EXAM: Obstetrics ultrasound HISTORY: confirm IUFD; LMP [...] right ovary measures 2.8 x2.1 x 2.5 cm.[facility] HospitalHIV 1/2 AG-AB WITH [id number] 10:37:23* Test Item Value Reference Range Interpretation Comme nts HIV Semi-quantitative (test code = 00482-3) 0.10 Negative NIKIA (test code = NIKIA) Non-reactive for HIV-1 antigen and HIV-1/HIV-2 antibodies. ?No laboratory evidence of HIV infection. ?Repeat in 2-4 weeks if acute HIV infection is suspected. [facility] HospitalHepatitis B Surface [id number] 10:28:00 * Test Item Value Reference Range Interpretation Comme nts HBsAg Semi-Quantitative (nawaf t code = 5195-3) 0.05 Negative [facility] HospitalABORH Confirmation (Lab Only)2023-05-15 10:01:00* Test Item Value Reference Range Interpretation Comme nts ABO & RH (test code = 20) O Negative [facility] HospitalCBC WITH [id number] 09:43:18* Test Item Value Reference Range Interpretation [...] 32.9 g/dL 31.6-35.1 RDW-SD (test code = 00681-1) 43.8 fL 39.0-49.9 RDW-CV (test code = 788-0) 14.3 % 12.0-15.5 PLT (test code = 777-3) 287 166-358 MPV (test code = 56458-8) 8.8 fL 9.5-12.9 L NRBC/100 WBC (test code = 8644728207) 0.0 0.0-10.0 NRBC x10^3 (test code = 4897386995) See_Comment [Automated message] The system which generated this result transmitted reference range: 10*3/?L. The reference range was not used to interpret this result as normal/abnormal. GRAN MAT (NEUT) % (test code = 770-8) 82.2 % IMM GRAN % (test code = 2251539721) 0.30 % LYMPH % (test code = 736-9) 13.2 % MONO % (test code = 5905-5) 3.5 % EOS % (test code = 713-8) 0.5 % BASO % (test code = 706-2) 0.3 % GRAN MAT x10^3(ANC) (test code = 9041259045) 14.57 10*3/uL 1.88-7.09 H IMM GRAN x10^3 (test code = 5823045551) 0.06 10*3/uL 0.00-0.06 LYMPH x10^3 (test code = 731-0) 2.34 10*3/uL 1.32-3.29 MONO x10^3 (test code = 742-7) 0.62 10*3/uL 0.33-0.92 EOS x10^3 (test code = 711-2) 0.08 10*3/uL 0.03-0.39 BASO x10^3 (test code = 704-7) 0.05 10*3/uL 0.01-0.07 Lab Interpretation (test code = 29673-3) Abnormal [facility] HospitalType and Screen - ONCE [id number] 09:37:00 * Test Item Value Reference Range Interpretation Comme nts ABO & RH (test code = 20) O NEGATIVE IAT (test code = 1185) Negative [facility] (QUANTITATIVE)2023-04-26 20:28:46* Test Item Value Reference Range Interpretation Comme nts BETA HCG (test code = 9095876276) 60057.00 See_Comment [Automated [employer] ge] The system which generated this result transmitted reference range: Non- female and male patients: <5 mIU/mL. The reference range was not used to interpret this result as normal/abnormal. NIKIA (test code = NIKIA) Gestational Age ?Range (mIU/mL) 1-10 ?Weeks ?40-49834201-41 Weeks ?95989-01680919-29 Weeks ?6676-04772561-12 Weeks ?7994-822636 Biotin has been reported to cause a negative bias, interpret results relative to patient's use of biotin. [facility] METABOLIC PANEL (NA, K, CL, CO2, GLUCOSE, BUN, CREATININE, CA)2023-04-26 19:09:51* Test Item Value Reference Range Interpretation Comme nts NA (test code = 6801063947) 135 mmol/L 135-145 K (test code = 4646474044) 3.9 mmol/L 3.5-5.0 CL (test code = 3358492737) 104 mmol/L 98-108 CO2 TOTAL (test code = 3868145193) 24 mmol/L 23-31 AGAP (test code = 0174177729) 7 2-16 BUN (test code = 4028325794) 6 mg/dL 7-23 L GLUCOSE (test code = 9996688464) 74 mg/dL 70-110 CREATININE (test code = 2160-0) 0.52 mg/dL 0.50-1.04 CALCIUM (test code = 0351652830) 9.3 mg/dL 8.6-10.6 eGFR (test code = 74434-9) 137.5 mL/min/1.73m2 CKD-EPI eGFR (2020). Assuming creatinine has been stable day-to-day for at least three months, the eGFR indicates Category G1 (>= 90 mL/min/1.73 m2) Lab Interpretation (test code = 57178-5) Abnormal [facility] WITH [id number] 18:59:50* Test Item Value Reference Range Interpretation [...] 33.2 g/dL 31.6-35.1 RDW-SD (test code = 19774-1) 43.5 fL 39.0-49.9 RDW-CV (test code = 788-0) 14.0 % 12.0-15.5 PLT (test code = 777-3) 322 166-358 MPV (test code = 44285-8) 9.3 fL 9.5-12.9 L NRBC/100 WBC (test code = 4451442734) 0.0 0.0-10.0 NRBC x10^3 (test code = 4776483193) See_Comment [Automated messa ge] The system which generated this result transmitted reference range: 10*3/?L. The reference range was not used to interpret this result as normal/abnormal. GRAN MAT (NEUT) % (test code = 770-8) 73.2 % IMM GRAN % (test code = 3184672084) 0.30 % LYMPH % (test code = 736-9) 21.2 % MONO % (test code = 5905-5) 4.4 % EOS % (test code = 713-8) 0.7 % BASO % (test code = 706-2) 0.2 % GRAN MAT x10^3(ANC) (test code = 8611689378) 7.16 10*3/uL 1.88-7.09 H IMM GRAN x10^3 (test code = 0310343857) 0.03 10*3/uL 0.00-0.06 LYMPH x10^3 (test code = 731-0) 2.07 10*3/uL 1.32-3.29 MONO x10^3 (test code = 742-7) 0.43 10*3/uL 0.33-0.92 EOS x10^3 (test code = 711-2) 0.07 10*3/uL 0.03-0.39 BASO x10^3 (test code = 704-7) 0.01-0.07 Lab Interpretation (test code = 91715-6) Abnormal [facility] HospitalPO[facility] [id number] 18:29:00* Test Item Value Reference Range Interpretation Comme nts POCT PREG (test code = 1605) Positive On board controls acceptable with C Line (test code = 3574) Yes POCT PREG LOT # (test code = 3575) [id number] POCT PREG TEST DATE ( test code = 3576) 04-13-24 Lab Interpretation (test cod e = 53048-6) Normal [facility] HospitalCOM. METABOLIC PANEL (19552)2023-01-22 03:49:36* Test Item Value Reference Range Interpretation Comme nts NA (test code = 6966228727) 136 mmol/L 135-145 K (test code = 2356681797) 3.9 mmol/L 3.5-5.0 CL (test code = 0497420574) 102 mmol/L 98-108 CO2 TOTAL (test code = 8519461115) 27 mmol/L 23-31 AGAP (test code = 1236844133) 7 2-16 BUN (test code = 2252548057) 13 mg/dL 7-23 GLUCOSE (test code = 3801341580) 79 mg/dL 70-110 CREATININE (test code = 8730584417) 0.64 mg/dL 0.50-1.04 TOTAL BILI (test code = 3514505802) 1.3 mg/dL 0.1-1.1 H CALCIUM (test code = 9031267328) 9.0 mg/dL 8.6-10.6 T PROTEIN (test code = 3715502820) 8.1 g/dL 6.3-8.2 ALBUMIN (test code = 1769898089) 4.4 g/dL 3.5-5.0 ALK PHOS (test code = 0118959701) 69 U/L 34-122 ALTv (test code = 1742-6) 18 U/L 5-35 AST(SGOT) (test code = 2494412406) 27 U/L 13-40 eGFR (test code = 26783-8) 130.7 mL/min/1.73m2 CKD-EPI eGFR (2020). Assuming creatinine has been stable day-to-day for at least three months, the eGFR indicates Category G1 (>= 90 mL/min/1.73 m2) Lab Interpretation (test code = 09917-4) Abnormal [facility]2023-11-16 03:49:36* Test Item Value Reference Range Interpretation Comme nts LIPASE (test code = 5736474229) 72 U/L 0-220 Lab Interpretation (test cod e = 99261-7) Normal [facility]PO[facility] [id number] 03:44:00* Test Item Value Reference Range Interpretation Comme nts POCT PREG (test code = 1605) Negative On board controls acceptable with C Line (test code = 3574) Yes POCT PREG LOT # (test code = 3575) [id number] POCT PREG TEST DATE ( test code = 3576) 04 05 25 Lab Interpretation (test cod e = 48912-0) Normal [facility] WITH [id number] 03:40:14* Test Item Value Reference Range Interpretation Comme nts WBC (test code = 6690-2) 7.87 See_Comment [Automated [employer] Aura XM] The system which generated this result transmitted reference range: 4.30 - 11.10 10*3/?L. The reference range was not used to interpret this result as normal/abnormal. RBC (test code = 789-8) 4.52 See_Comment [Automated [employer]] The system which generated this result [...] 32.5 g/dL 31.6-35.1 RDW-SD (test code = 92407-4) 40.6 fL 39.0-49.9 RDW-CV (test code = 788-0) 13.2 % 12.0-15.5 PLT (test code = 777-3) 368 See_Comment H [Automated messa ge] The system which generated this result transmitted reference range: 166 - 358 10*3/?L. The reference range was not used to interpret this result as normal/abnormal. MPV (test code = 08442-2) 8.8 fL 9.5-12.9 L NRBC/100 WBC (test code = 1647789876) 0.0 See_Comment [Automated me ssage] The system which generated this result transmitted reference range: 0.0 - 10.0 /100 WBCs. The reference range was not used to interpret this result as normal/abnormal. NRBC x10^3 (test code = 7971869938) See_Comment [Automated messa ge] The system which generated this result transmitted reference range: 10*3/?L. The reference range was not used to interpret this result as normal/abnormal. GRAN MAT (NEUT) % (test code = 770-8) 51.4 % IMM GRAN % (test code = 9940109720) 0.30 % LYMPH % (test code = 736-9) 41.9 % MONO % (test code = 5905-5) 4.1 % EOS % (test code = 713-8) 1.8 % BASO % (test code = 706-2) 0.5 % GRAN MAT x10^3(ANC) (test code = 9065490893) 4.05 10*3/uL 1.88-7.09 IMM GRAN x10^3 (test code = 7918140345) 0.00-0.06 LYMPH x10^3 (test code = 731-0) 3.30 10*3/uL 1.32-3.29 H MONO x10^3 (test code = 742-7) 0.32 10*3/uL 0.33-0.92 L EOS x10^3 (test code = 711-2) 0.14 10*3/uL 0.03-0.39 BASO x10^3 (test code = 704-7) 0.04 10*3/uL 0.01-0.07 Lab Interpretation (test code = 29630-7) Abnormal [facility] Consult Notes Date/Time Note Provider Source 2023-05-15 12:17:24 Associated Order(s): CONSULT TRAFFIC LINE PAINTER-ADULT Energy Professional Update: CM spoke with patient and boyfriend, Lorna Garcia, , at bedside. Discussed and provided [...] along Leandra Oro RN, BSN Case Management [employer] Professional [address] [address] O [phone] [email or web address] SALES CONSULTANT Leandra Oro RN [facility] - Health History and Physical Notes Date/Time Note Provider Source 2023-12-04 10:19:25 Surgery H&P Update 12/04/2023 10:19 AM Paz Quevedo is a 18 year old female who [...] and in the chart. Kim Block MD [facility] General Surgery 12/04/2023 10:19 AM Associated attestation [...] Umanzor MD - 11/26/2023 1:45 PM CDT [facility] GENERAL SUR[facility]ERY [facility]IC VISIT Visit Type: new eval Date: 11/26/2023 Chief Complaint: symptomatic cholelithiasis HPI: Paz Quevedo is a 18 year old female at [...] on the gallbladder was performed by the nuclear medical technologist. The main portal vein was evaluated with color Doppler. Library Associate images were obtained for the record. COMPARISON: [...] evidence to suggest acute cholecystitis. Assessment/Diagnosis Paz Quevedo is a 18 year old female with [...] considering cerclage, then send Dr. Lee a mychart message so we can discuss risks of [...] after delivery. Shreya Lee M.D. 11/26/2023 15:51 [facility] 2023-05-15 02:59:15 TRIAGE HISTORY & PHYSICAL IDENTIFYING DATA Paz Quevedo is 17 year old, /White, Unknown, [...] Value 04/26/2023 39.4 ASSESSMENT AND PLAN Paz Quevedo is a 17 year old at [...] or other health record. Paresh Kern MD [facility]
[2024-03-03 04:25] LABS: Absolute Eosinophils 0.1 K/uL (0-0.5); Absolute Lymphocytes (CBC) 0.7 K/uL (0.7-4.9); Absolute Monocytes 0.7 K/uL (0.1-1.3); Absolute Neutrophil 13.6 K/uL (1.8-8.0); Basophils % 0.1 % (0-1.3); Eosinophils % 0.9 % (0-4.4); Hemoglobin 11.8 g/dL (12.0-15.0); Lymphocytes % 4.7 % (15.3-44.8); MCH 28.5 pg (27.0-35.0); MCHC 32.9 g/dL (32.0-36.0); MCV 86.6 fL (80-100); MPV 7.1 fL (7.6-11.3); Monocytes % 4.7 % (3.3-12.3); Neutrophils % 89.6 % (41.7-73.7); Platelets 306 thou/uL (152-406); RBC Red Blood Cell Count 4.16 M/uL (3.86-4.86); Red Cell Distribution Width 14.8 % (12.1-15.2)
[2024-03-03] MEDS ORDERED: ONDANSETRON 4 MG/2 ML VIAL ONE (04:38)
[2024-03-03] MEDS ORDERED: NA CHLORIDE 0.9% 1,000 ML ONE (04:39)
[2024-03-03 04:43] LABS: Albumin 2.8 g/dL (3.4-5.0); Albumin/Globulin Ratio 0.6 (1.1-1.8); Anion Gap 8.7 mEq/L (5.0-15.0); Bilirubin Total 0.6 mg/dL (0.2-1.0); Globulin 4.4 g/dL (2.3-3.5); Potassium 3.7 mEq/L (3.5-5.1); Protein, Total 7.2 g/dL (6.4-8.2)
[2024-03-03 05:20] LABS: Blood Morphology Comment NOT SEEN (NOT SEEN); Platelet Estimate ADEQ; White Blood Cell Scan OK (OK)
--- NOTE | 2024-03-03 07:17 | ER ---
Nurse's Notes [facility] Name: aPz Castrejon Age: 18 yrs Sex: Female : 2005 Arrival Date: 03/03/2024 Time: 03:37 Bed 17 Private MD: Diagnosis: Acute nausea vomiting, acute viral gastroenteritis, at 26 weeks EGA Presentation: 03/03 03:46 Chief complaint: Patient states: blurry vision X2 days. vomiting beginning 2200 last lg3 night, light headed and body chills. Coronavirus screen: Client denies travel out of the [place] in the last 14 days. At this time, the client does not indicate any symptoms associated with coronavirus-19. Ebola Screen: No symptoms or risks identified at this time. Initial Sepsis Screen: Does the patient meet any 2 criteria? No. Patient's initial sepsis screen is negative. Does the patient have a suspected source of infection? No. Patient's initial sepsis screen is negative. Risk Assessment: Do you want to hurt yourself or someone else? Patient reports no desire to harm self or others. Onset of symptoms was March 01, 2024. 03:46 Method Of Arrival: Wheelchair lg3 03:46 Acuity: JOSR 3 lg3 Triage Assessment: 03:48 General: Appears in no apparent distress. uncomfortable, Behavior is calm, cooperative. lg3 Pain: Denies pain. EENT: No deficits noted. Neuro: Granados Agitation-Sedation Scale (RASS): 0 - Alert and Calm Level of Consciousness is awake, alert, obeys commands, Oriented to person, place, time, situation, Reports blurred vision dizziness, weakness. Cardiovascular: No deficits noted. Denies chest pain, shortness of breath, Capillary refill < 3 seconds Clubbing of nail beds is absent JVD is absent Patient's skin is warm and dry. Respiratory: No deficits noted. Airway is patent Respiratory effort is even, unlabored, Respiratory pattern is regular, symmetrical. GI: Abdomen is round non-distended, Reports nausea, vomiting. : No signs and/or symptoms were reported regarding the genitourinary system. Derm: No deficits noted. No signs and/or symptoms reported regarding the dermatologic system. Skin is intact, is healthy with good turgor, Skin is dry, Skin is normal, Skin temperature is warm. Musculoskeletal: No deficits noted. Circulation, motion, and sensation intact. Range of motion: intact in all extremities. DIRECTOR OF STUDENT FINANCIAL AID: 03:48 2, Full Term 0, Premature 0, 1, Living 0, LMP 08/2023, [email or web address] Historical: - Allergies: 03:48 Diphenhydramine; lg3 03:48 Ibuprofen; lg3 - Home Meds: 03:48 progesterone micronized vaginal daily [Active]; Vitamin Oral [Active]; lg3 - PMHx: 03:48 depressive disorder; lg3 - PSHx: 03:48 Appendectomy; lg3 - Immunization history:: Adult Immunizations up to date. - Infectious Disease History:: Denies. - Social history:: Smoking status: Patient denies any tobacco usage or history of. Patient/guardian denies using alcohol, street drugs. - Family history:: not pertinent. Screenin:20 [facility] ED Fall Risk Assessment (Adult) History of falling in the last 3 months, dd2 including since admission No falls in past 3 months (0 pts) Confusion or Disorientation No (0 pts) Intoxicated or Sedated No (0 pts) Impaired Gait No (0 pts) Mobility Assist Device Used No (0 pt) Altered Elimination No (0 pt) Score/Fall Risk Level 0 - 2 = Low Risk Oriented to surroundings, Maintained a safe environment, Educated pt \T\ family on fall prevention, incl call for assistance when getting out of bed, Assessed \T\ reinforced patient's understanding of fall precautions, Hourly rounding (assess needs \T\ fall precautionary measures) done. Abuse screen: Denies threats or abuse. Nutritional screening: No deficits noted. Tuberculosis screening: No symptoms or risk factors identified. Assessment: 04:20 General: Appears uncomfortable, Behavior is calm, cooperative, appropriate for age. dd2 Pain: Denies pain. Neuro: No deficits noted. Level of Consciousness is awake, alert, obeys commands, Oriented to person, place, time, situation, Appropriate for age Reports dizziness, blurred vision. Cardiovascular: No deficits noted. Respiratory: No deficits noted. Airway is patent Respiratory effort is even, unlabored, Respiratory pattern is regular, symmetrical. GI: Abdomen is non-distended, Bowel sounds present X 4 quads. Abd is soft and non tender X 4 quads. Reports nausea, vomiting. : No deficits noted. No signs and/or symptoms were reported regarding the genitourinary system. EENT: No deficits noted. No signs and/or symptoms were reported regarding the EENT system. Derm: No deficits noted. No signs and/or symptoms reported regarding the dermatologic system. Musculoskeletal: No deficits noted. No signs and/or symptoms reported regarding the musculoskeletal system. 05:55 Reassessment: Patient and/or family updated on plan of care and expected duration. Pain rs5 level reassessed. Patient is alert, oriented x 3, equal unlabored respirations, skin warm/dry/pink. 07:01 Reassessment: Patient and/or family updated on plan of care and expected duration. Pain rs5 level reassessed. Patient is alert, oriented x 3, equal unlabored respirations, skin warm/dry/pink. 07:25 Reassessment: Patient and/or family updated on plan of care and expected duration. Pain rs5 level reassessed. Patient is alert, oriented x 3, equal unlabored respirations, skin warm/dry/pink. Vital Signs: 03:46 BP 124 / 74; Pulse 101; Resp 17 S; Temp 98.5(O); Pulse Ox 99% on R/A; Weight 81.65 kg lg3 (R); Height 5 ft. 4 in. (R); 06:09 BP 102 / 55; Pulse 79; Resp 17; Pulse Ox 99% on R/A; rs5 07:20 BP 110 / 59; Pulse 81; Resp 17; Pulse Ox 99% on R/A; rs5 03:46 Body Mass Index 30.90 (81.65 kg, 162.56 cm) lg3 Ramesh Coma Score: 04:20 Eye Response: spontaneous(4). Motor Response: obeys commands(6). Verbal Response: dd2 oriented(5). Total: 15. 22:17 Eye Response: spontaneous(4). Motor Response: obeys commands(6). Verbal Response: sp4 oriented(5). Total: 15. ED Course: 03:41 Patient arrived in ED. gm2 03:48 Triage completed. lg3 03:48 Arm band placed on right wrist. lg3 03:55 Willy Escobedo MD is Attending Physician. sp4 04:18 Inserted saline lock: 20 gauge in right antecubital area, using aseptic technique. af3 Blood collected. Flushed with 10 mL NS. 04:20 Patient has correct armband on for positive identification. Bed in low position. Call dd2 light in reach. Side rails up X 1. Client placed on continuous cardiac and pulse oximetry monitoring. NIBP monitoring applied. Door closed. Noise minimized. Lights dimmed. Warm blanket given. Pillow given. Verbal reassurance given. 04:20 No provider procedures requiring assistance completed. Patient maintains SpO2 dd2 saturation greater than 95% on room air. 04:27 LINDY ROBLEDO, RN is Primary Nurse. dd2 07:18 Provided Education on: discharge instructions . rs5 07:30 IV discontinued, intact, bleeding controlled, No redness/swelling at site. Pressure rs5 dressing applied. Administered Medications: 04:43 Drug: Ondansetron IVP 8 mg IVP once; over 2 minutes Route: IVP; Site: right antecubital;dd2 05:00 Follow up: Response: No adverse reaction; Nausea is decreased rs5 04:43 Drug: NS 0.9% IV 1000 ml IV at 1 bolus Per protocol; to be given as a bolus over 60 dd2 minutes Route: IV; Rate: 1 bolus; Site: right antecubital; 07:00 Follow up: Response: No adverse reaction; total intake: 999. Completed infusion rs5 07:16 Drug: metoCLOPramide IVP 10 mg IVP once; over 1 to 2 minutes Route: IVP; Site: right rs5 antecubital; 07:30 Follow up: Response: No adverse reaction; Nausea is decreased rs5 Medication: 04:20 VIS not applicable for this client. dd2 Intake: Outcome: 07:16 Discharge ordered by . sp4 07:30 Patient left the ED. rs5 07:30 Discharged to home via ambulance, with family, rs5 07:30 Condition: stable 07:30 Discharge instructions given to patient, family, Instructed on discharge instructions, follow up and referral plans. medication usage, Demonstrated understanding of instructions, follow-up care, medications, Prescriptions given X 1, Signatures: Kristel Franco RN RN lg3 Jaime Gonzalez RN RN rs5 Willy Escobedo MD MD sp4 Kristin Manuel 2 Darcy Thomas af3 LINDY ROBLEDO, RN RN dd2 Corrections: (The following items were deleted from the chart) 08:24 08:23 Patient left the ED. rs5 rs5 08:27 07:00 Response: No adverse reaction rs5 rs5 08:27 08:26 Response: No adverse reaction; total intake: 999 rs5 rs5 08:27 07:00 Response: No adverse reaction; total intake: 999 rs5 rs5
--- NOTE | 2024-03-03 07:17 | EDPHYS ---
Physician Documentation [facility] Name: Paz Castrejon Age: 18 yrs Sex: Female : 2005 Arrival Date: 03/03/2024 Time: 03:37 Bed 17 Private MD: ED Physician Willy Escobedo HPI: 03/03 07:15 This 18 yrs old Female presents to ER via Wheelchair with complaints of sp4 Nausea/Vomiting, 26 WEEKS PREG, Dizziness, Blurred Vision. 07:15 18-year-old female at 26 weeks EGA presents with acute onset of nausea vomiting and sp4 feeling unwell starting acutely yesterday. 22:17 Very pleasant female presents with vomiting starting acutely yesterday. 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 - Infectious Disease History:: Denies. - Social history:: Smoking status: Patient denies any tobacco usage or history of. Patient/guardian denies using alcohol, street drugs. - Family history:: not pertinent. ROS: 22:17 Constitutional: Negative for fever, chills, and weight loss, positive nausea no sp4 vomiting, positive blurry vision and dizziness as well 22:17 All other systems are negative, Exam: 22:17 Constitutional: This is a well developed, well nourished patient who is awake, alert, sp4 and in no acute distress. Head/Face: Normocephalic, atraumatic. Eyes: Pupils equal round and reactive to light, extra-ocular motions intact. Lids and lashes normal. Conjunctiva and sclera are not injected. Cornea within normal limits. Periorbital areas with no swelling, redness, or edema. ENT: Nares patent. No nasal discharge, no septal abnormalities noted. Tympanic membranes are normal and external auditory canals are clear. Oropharynx with no redness, swelling, or masses, exudates, or evidence of obstruction, uvula midline. Mucous membranes moist. Neck: Trachea midline, no thyromegaly or masses palpated, and no cervical lymphadenopathy. Supple, full range of motion without nuchal rigidity, or vertebral point tenderness. Chest/axilla: Normal chest wall appearance and motion. Nontender with no deformity. No lesions are appreciated. Cardiovascular: Regular rate and rhythm with a normal S1 and S2. No gallops, murmurs, or rubs. Normal PMI, no JVD. No pulse deficits. Respiratory: Lungs have equal breath sounds bilaterally, clear to auscultation and percussion. No rales, rhonchi or wheezes noted. No increased work of breathing, no retractions or nasal flaring. Abdomen/GI: Soft, with normal bowel sounds. No distension or tympany. No guarding or rebound. No evidence of tenderness throughout. Back: No spinal tenderness. No costovertebral tenderness. Skin: Warm, dry with normal turgor. Normal color with no rashes, no lesions, and no evidence of cellulitis. MS/ Extremity: Pulses equal, no cyanosis. Neurovascular intact. Full, normal range of motion. Neuro: Awake and alert, GCS 15, oriented to person, place, time, and situation. Cranial nerves II-XII grossly intact. Motor strength 5/5 in all extremities. Sensory grossly intact. Psych: Awake, alert, with orientation to person, place and time. Behavior, mood, and affect are within normal limits Vital Signs: 03:46 BP 124 / 74; Pulse 101; Resp 17 S; Temp 98.5(O); Pulse Ox 99% on R/A; Weight 81.65 kg lg3 (R); Height 5 ft. 4 in. (R); 06:09 BP 102 / 55; Pulse 79; Resp 17; Pulse Ox 99% on R/A; rs5 07:20 BP 110 / 59; Pulse 81; Resp 17; Pulse Ox 99% on R/A; rs5 03:46 Body Mass Index 30.90 (81.65 kg, 162.56 cm) lg3 [place] Coma Score: 04:20 Eye Response: spontaneous(4). Motor Response: obeys commands(6). Verbal Response: dd2 oriented(5). Total: 15. 22:17 Eye Response: spontaneous(4). Motor Response: obeys commands(6). Verbal Response: sp4 oriented(5). Total: 15. MDM: 03:56 Medical Screening Exam initiated sp4 22:18 Differential diagnosis: Nonspecific abd pain, gastritis, viral gastroenteritis, sp4 gastroenteritis. Data reviewed: vital signs, nurses notes, lab test result(s). Consideration of Admission/Observation Escalation of care including admission/observation considered. ED course: Patient has improved after hydration and nausea medication. Stable for discharge home.. 03/03 03:56 Order name: CBC with Diff; Complete Time: 06:27 sp4 03/03 03:56 Order name: CMP; Complete Time: 04:58 sp4 03/03 03:56 Order name: Lipase; Complete Time: 04:58 sp4 03/03 03:56 Order name: Urinalysis w/ reflexes sp4 03/03 03:56 Order name: Influenza Screen (a \T\ B); Complete Time: 04:58 sp4 03/03 05:20 Order name: CBC Smear Scan; Complete Time: 06:27 EDMS 03/03 03:56 Order name: IV Saline Lock; Complete Time: 04:18 sp4 03/03 03:56 Order name: Labs collected and sent; Complete Time: 04:18 sp4 Administered Medications: 04:43 Drug: Ondansetron IVP 8 mg IVP once; over 2 minutes Route: IVP; Site: right antecubital;dd2 05:00 Follow up: Response: No adverse reaction; Nausea is decreased rs5 04:43 Drug: NS 0.9% IV 1000 ml IV at 1 bolus Per protocol; to be given as a bolus over 60 dd2 minutes Route: IV; Rate: 1 bolus; Site: right antecubital; 07:00 Follow up: Response: No adverse reaction; total intake: 999. Completed infusion rs5 07:16 Drug: metoCLOPramide IVP 10 mg IVP once; over 1 to 2 minutes Route: IVP; Site: right rs5 antecubital; 07:30 Follow up: Response: No adverse reaction; Nausea is decreased rs5 Disposition Summary: 03/03/24 07:16 Discharge Ordered Notes: Location: Home sp4 Problem: new sp4 Symptoms: have improved sp4 Condition: Fair sp4 Diagnosis - Acute nausea vomiting, acute viral gastroenteritis, at 26 weeks EGA sp4 Followup: sp4 - With: Private Physician - When: 7 - 10 days - Reason: Recheck today's complaints Discharge Instructions: - Discharge Summary Sheet sp4 - Clear Liquid Diet, Adult, [id number] sp4 Forms: - Patient Portal Instructions sp4 Prescriptions: - promethazine 25 mg Oral tablet - take 1 tablet ORAL route every 6 hours As needed PRN nausea; 30 tablet; sp4 Refills: 0, Product Selection Permitted Signatures: Dispatcher [employer] EDMS Kristel Franco RN RN lg3 Jaime Gonzalez RN RN rs5 Willy Escobedo MD MD sp4 LINDY ROBLEDO RN RN dd2 Corrections: (The following items were deleted from the chart) 03:56 03:56 CBC+H.LAB.BRZ ordered. EDMS EDMS 03:56 03:56 COMPREHENSIVE METABOLIC PANEL+C.LAB.BRZ ordered. EDMS EDMS 03:56 03:56 LIPASE+C.LAB.BRZ ordered. EDMS EDMS 03:56 03:56 Urinalysis+U.LAB.BRZ ordered. EDMS EDMS 03:56 03:56 Influenza Screen (A \T\ B)+BA.LAB.BRZ ordered. EDMS EDMS
[2024-03-03] MEDS ORDERED: METOCLOPRAMIDE 10 MG/2mL INJ ONE (07:20)
[2024-03-03 07:52] LABS: Specific Gravity 1.029 (1.005-1.030); Urine Bilirubin NEGATIVE (Negative); Urine Blood Negative (Negative); Urine Clarity Turbid (Clear); Urine Color Yellow (Yellow); Urine Glucose NEGATIVE (Negative); Urine Ketones NEGATIVE (Negative); Urine Microscopic Reflex YN NO UMIC; Urine Nitrite NEGATIVE (Negative); Urine Protein TRACE (Negative); Urine Urobilinogen Normal (Normal)
[2024-03-03 09:09] VITALS: BP 124/74; TEMP 98.5; O2SAT 99
== END 2024-03-03 08:23 | disposition home or self-care (01) ==
LOC: ER 03:37
DX: O99.612 Diseases of the digestive system complicating pregnancy, second trimester (principal); A08.4 Viral intestinal infection, unspecified; Z3A.26 26 weeks gestation of pregnancy
CPT/HCPCS: 85025; 36415; 81003; 83690; 80053; 87804 ×2; 96375; 96374; 99284; J2765; J2405; J7030